=== PATIENT | male | born 1935 | race Caucasian/White ===

== ENCOUNTER → 2016-11-22 | Outpatient (CLI) | payer MEDICARE | END | disposition home or self-care (01) | LOC: LABWHC1 10:07 | PROVIDERS: ATTEND Thoracic Surgery (Cardiothoracic Vascular Surgery) | DX: Z53.9 Procedure and treatment not carried out, unspecified reason (principal) ==

== ENCOUNTER 2017-01-04 06:21 | Day surgery (SDC) | payer MEDICARE ==
[2017-01-03 09:20] VITALS: BMI 31.4
[~2017-01-04 06:21] MED LIST: SODIUM CHLORIDE 0.9% 1,000 ML in EMPTY BAG 1 BAG IV ONE
[2017-01-04] MEDS ORDERED: SODIUM CHLORIDE 0.9% 1,000 ML IV ONE (07:00)
[2017-01-04 07:11] LABS: Glucose,Whole Blood 94 mg/dL (75-99)
[2017-01-04 07:21] VITALS: RESP 16; TEMP 97
[2017-01-04] MEDS ORDERED: MIDAZOLAM 2 MG/2 ML VIAL IV ONE (07:42)
[2017-01-04] MEDS ORDERED: LIDOCAINE 2% INJ 20 MG/ML SQ ONE (07:48)
[2017-01-04 08:01] LABS: Basophils % (A) 0 %; CH 30.5; CHCM 33.4; Eosinophils # (A) 0.2 k/uL (0-0.7); Eosinophils % (A) 2 %; HCT 42.7 % (39.0-53.0); HDW 2.62; HGB 14.4 gm/dL (13.0-17.5); Luc # (Auto) 0.19; Luc % (Auto) 2; Lymphocytes # (A) 1.5 k/uL (1.0-4.8); Lymphocytes % (A) 19 %; MCHC 33.8 g/dL (31.0-37.0); MCV 91.7 fL (80.0-100.0); Mean Platelet Volume 7.1; Monocytes # (A) 0.6 k/uL (0-1.0); Monocytes % (A) 7 %; Neutrophils # (A) 5.5 k/uL (1.3-7.7); Neutrophils % (A) 70 %; RBC 4.66 m/uL (4.30-5.90); RDW 13.1 % (11.5-15.5); WBC (Perox) 8.14
[2017-01-04 08:04] LABS: Calcium 9.2 mg/dL (8.4-10.2)
[2017-01-04] MEDS ORDERED: IODIXANOL 320 MG/ML 100 ML INTRAARTER ONE (08:07)
[2017-01-04] MEDS ORDERED: MAG HYDROX/AL HYDROX/SIMETH 30 ML CUP PO PRN (08:10)
[2017-01-04] MEDS ORDERED: ZOLPIDEM 5 MG TAB PO PRN (08:10)
[2017-01-04] MEDS ORDERED: NITROGLYCERIN SL TABS 0.4 MG TAB SUBLINGUAL PRN (08:10)
[2017-01-04] MEDS ORDERED: ATROPINE SULFATE 0.1 MG/ML 10ML SYRINGE IV PRN (08:10)
[2017-01-04] MEDS ORDERED: RX INFO: IV CONTRAST WAS GIVEN 1 EACH MISC MISCELLANE PRN (08:10)
[2017-01-04 08:13] LABS: Potassium 4.7 mmol/L (3.5-5.1)
[2017-01-04] MEDS ORDERED: SODIUM CHLORIDE 0.9% 1,000 ML IV SCH (08:15)
--- NOTE | 2017-01-04 08:49 | IR ---
EXAMINATION TYPE: IR angio abdominal w runoff DATE OF EXAM: 01/04/2017 COMPARISON: NONE HISTORY: Peripheral vascular occlusive disease. Fluoroscopy was provided to the referring clinician. See dictated report from cardiology.
[2017-01-04 09:12] LABS: Glucose,Whole Blood 111 mg/dL (75-99)
--- NOTE | 2017-01-04 14:03 | AN ---
DATE OF SERVICE: January 04, 2017 ABDOMINAL AORTOGRAM AND BILATERAL LOWER EXTREMITY RUNOFF: PERFORMING PHYSICIAN: Bebo Malone MD, Printing Equipment Mechanic Apprentice. PROCEDURE PERFORMED: 1. Abdominal aortogram. 2. Bilateral lower extremity runoff. 3. Selective right popliteal angiogram. INDICATION: This is a pleasant 81-year-old gentleman who sees Dr. Traylor as an outpatient who was diagnosed with a critical limb ischemia and non-healing ulcer involving the right foot. Dr. Traylor requested me to perform a peripheral angiogram. APPROACH: Common femoral artery. COMPLICATIONS: None. LEVEL OF SEDATION: Moderate with a sedation length of 22 minutes. PROCEDURE DESCRIPTION: After obtaining an informed consent, the patient was brought to the Cardiac Bioinformatics Computer Scientist. The right peripheral artery was cannulated using micropuncture technique under ultrasound guidance. The micropuncture wire passed easily, then I placed a 5 Georgian sheath in the right common femoral artery. Subsequently, I did an abdominal aortogram and bilateral lower extremity runoff. Using 5 Georgian Pigtail catheter, which was initially placed at the level of the peroneal arteries, then it was pulled into above the bifurcation of the aorta to the right and left common iliac arteries. Then I did selective right popliteal angiogram with injection through the right common femoral sheath. Procedure was completed without any complication. SELECTIVE PERIPHERAL ANGIOGRAM: The aorta is angiographically normal. COMMON ILIAC ARTERIES: The right and left common iliac arteries are angiographically normal. INTERNAL ILIAC ARTERIES: The right and left internal iliac arteries are patent. EXTERNAL ILIAC ARTERY: The right and left external iliac arteries appear to have mild disease only. COMMON FEMORAL ARTERY: The right and left common femoral arteries are angiographically normal. PROFUNDA: The right and left profunda are angiographically normal. SFA: The right and left SFA appears to have mild to moderate diffuse disease but there is no high-grade stenoses. POPLITEAL: The right popliteal is subtotally occluded and the left popliteal appeared to have a tight lesion in the range of 80%. BELOW THE KNEE: Poor opacification for below the knee where I could not visualize the arteries very well but it seems to have diffuse 3-vessel disease. CONCLUSION: 1. Mild aortoiliac disease. 2. Subtotally occluded right popliteal artery. 3. Severe disease involving the left popliteal. 4. Severe below-the knee disease bilaterally. PLAN: The patient will benefit from CHAINSTITCH SEAT JOINER of the right popliteal and at the same time will take an angiogram to assess the arteries below the knee on the right side. LOPEZ
[2017-01-04 14:06] VITALS: BP 154/56; PULSE 45
== END 2017-01-04 14:40 | disposition home or self-care (01) ==
LOC: CATHCVL 06:21
PROVIDERS: ATTEND Internal Medicine Interventional Cardiology
DX: I77.9 Disorder of arteries and arterioles, unspecified (principal); I99.8 Other disorder of circulatory system; E11.621 Type 2 diabetes mellitus with foot ulcer; L97.512 Non-pressure chronic ulcer of other part of right foot with fat layer exposed; I25.10 Atherosclerotic heart disease of native coronary artery without angina pectoris; E78.5 Hyperlipidemia, unspecified; I10 Essential (primary) hypertension; Z79.899 Other long term (current) drug therapy
CPT/HCPCS: 36200; 75625; 75716; 76937; 80048; 85025; 99152; 99153; C1894 ×2; C1769 ×3; J2001; J2250; Q9967

== ENCOUNTER 2017-01-18 06:31 | Day surgery (SDC) | payer MEDICARE ==
[2017-01-15 11:30] VITALS: BMI 31.1
[2017-01-18 07:15] LABS: Glucose,Whole Blood 134 mg/dL (75-99)
[2017-01-18] MEDS ORDERED: LIDOCAINE 2% INJ 20 MG/ML SQ ONE (08:08)
[2017-01-18] MEDS ORDERED: MIDAZOLAM 2 MG/2 ML VIAL IV ONE (08:08)
[2017-01-18] MEDS ORDERED: HEPARIN SODIUM 1,000 UN/ML (10ML VL) IV ONE (08:13)
[2017-01-18] MEDS: MIDAZOLAM 2 MG/2 ML VIAL IV ONE ×2 (08:34→09:38)
[2017-01-18] MEDS ORDERED: CLOPIDOGREL 75 MG TAB PO ONE (08:44)
[2017-01-18] MEDS ORDERED: hydrALAZINE HCL 20 MG/ML 1 ML VIAL IV ONE (08:47)
[2017-01-18] MEDS: NITROGLYCERIN 1000MCG/10ML SYRINGE INTRAARTER ONE ×3 (09:16→10:15)
[2017-01-18] MEDS: niCARdipine Syringe (1,000 mcg/10 mL) INTRAARTER ONE ×3 (09:16→10:17)
[2017-01-18] MEDS ORDERED: ONDANSETRON 4 MG/2 ML VIAL IVP ONE (09:57)
[2017-01-18] MEDS ORDERED: IODIXANOL 320 MG/ML 100 ML INTRAARTER ONE (10:17)
[2017-01-18] MEDS ORDERED: FUROSEMIDE 40 MG TAB PO PRN (10:36)
[2017-01-18] MEDS ORDERED: SODIUM CHLORIDE 0.9% 1,000 ML IV SCH (10:45)
--- NOTE | 2017-01-18 11:06 | IR ---
Fluoroscopy HISTORY: Pain 33.1 minutes fluoroscopy time supplied to the referring clinician. 844 intraoperative C-arm images d ocument the procedure. See dictated report from cardiology.
[2017-01-18 11:57] LABS: Basophils % (A) 0 %; CH 30.7; CHCM 32.3; Eosinophils # (A) 0.1 k/uL (0-0.7); Eosinophils % (A) 1 %; HCT 40.9 % (39.0-53.0); HDW 2.62; HGB 13.1 gm/dL (13.0-17.5); Luc # (Auto) 0.08; Luc % (Auto) 1; Lymphocytes # (A) 0.8 k/uL (1.0-4.8); Lymphocytes % (A) 7 %; MCH 30.5 pg (25.0-35.0); MCHC 32.1 g/dL (31.0-37.0); MCV 95.2 fL (80.0-100.0); Mean Platelet Volume 7.5; Monocytes # (A) 0.7 k/uL (0-1.0); Monocytes % (A) 6 %; Neutrophils # (A) 9.9 k/uL (1.3-7.7); Neutrophils % (A) 86 %; RBC 4.29 m/uL (4.30-5.90); RDW 13.8 % (11.5-15.5); WBC 11.5 k/uL (3.8-10.6)
[2017-01-18 12:57] LABS: Calcium 8.8 mg/dL (8.4-10.2); Potassium 4.1 mmol/L (3.5-5.1)
--- NOTE | 2017-01-18 15:25 | MISC ---
DATE OF SERVICE: 01/18/2017 Dear Rylan; Mr. Jeb Calderón underwent successful balloon angioplasty of the right popliteal artery with a good angiographic result and without any complication. I want to thank you for allowing us to participate in his care and please do not hesitate to call for any question or concern. Sincerely, Monalisa Crews. LOPEZ
--- NOTE | 2017-01-18 15:39 | PCN ---
DATE OF PROCEDURE: 01/18/2017 PERFORMING PHYSICIAN: Bebo Malone M.D., manager practice. PROCEDURE PERFORMED: 1. Selective right below the knee angiogram. 2. Selective right popliteal angiogram. 3. Atherectomy of the right popliteal artery using the Turbo Hawk device with obstruction of significant amount of plaque. 4. Successful balloon angioplasty of the proximal right popliteal. 5. Successful stenting of the mid right popliteal using ( ) VTX stent with good angiographic results. 6. Selective left common femoral artery angiogram. INDICATIONS: This is a pleasant 82 -year-old gentleman who sees Dr. Traylor and Dr. Ferrera as an outpatient who was diagnosed by Dr. Traylor with critical limb ischemia, CLI of the right foot. He underwent peripheral angiogram a few weeks ago and that showed occlusive right popliteal. He was brought today to undergo a UNION CARPENTER of the right popliteal. APPROACH: Left common femoral artery. COMPLICATIONS: None. LEVEL OF SEDATION: Moderate with a sedation length of 2 hours and 17 minutes. PROCEDURE DESCRIPTION: After obtaining informed consent, the patient was brought to the cardiac greens laborer. The left common femoral artery was cannulated using micropuncture technique. The micropuncture wire passed easily and then I placed a 6 Lao sheath 11 cm in the left common femoral artery. After that I did select the right SFA using an 035 Advantage wire with 5 Lao Rim catheter. The 035 Advantage wire was advanced all the way to the distal right SFA. At that point, anticoagulation was initiated using heparin and the patient was given a total of 9000 units of heparin IV. Subsequently, I did exchange my 11 cm sheath into the left groin into a 70 cm 6 Lao sheath using the Advantage wire. The sheath was positioned in the proximal right common femoral artery. Subsequently, after that, I did Selective right below the knee angiogram and selective right popliteal angiogram to realize that the popliteal artery was 100 % occluded. After that, I did balloon angioplasty using 5.0 angio sculpt balloon which was inflated under 8 atmospheres for about 30 seconds. Then I did drug coated balloon of that segment using 6.0 x 60 mm balloon which was inflated under 6 atmospheres for 3 minutes. The following angiogram showed what seems to be dissection involving the second segment of the popliteal and I decided to stent that segment so I did use PTX 7 x 60 mm stent which was positioned under fluoroscopy guidance and deployed under fluoroscopy guidance as well. I dilated the stent using 6 mm balloon. The following angiogram showed good angiographic results. Proximal to the stent segment, there was another lesion seems to be tight, so I did cut that lesion using the Angio sculpt balloon which was 5.0 balloon and then I used 5.0 x 60 mm drug coated balloon which was positioned under fluoroscopy guidance and inflated for 3 minutes as well. The following angiogram showed decent angiographic results. The procedure was completed without any complications. After that, I did exchange my 70 cm 6 Lao sheath into 11 cm 6 Lao sheath using the 0.35 Advantage wire. After that I did selective right common femoral artery angiogram before I finished the procedure. The procedure was completed without complication. POSTPROCEDURE MANAGEMENT: 1. Dual antiplatelet therapy. 2. Risk factor modifications. 3. Follow-up with the patient. LOPEZ
[2017-01-18] MEDS ORDERED: ATROPINE SULFATE 0.1 MG/ML 10ML SYRINGE ONE (16:46)
[2017-01-18] MEDS ORDERED: ENALAPRILAT 1.25 MG/ML 1 ML VIAL IVP STA (17:16)
[2017-01-18] MEDS: hydrALAZINE HCL 20 MG/ML 1 ML VIAL IVP PRN ×2 (17:23→21:00)
[2017-01-18] MEDS ORDERED: Acetaminophen-Codeine 300-30mg TAB PO PRN (21:21)
[2017-01-19] MEDS ORDERED: HYDROmorphone 1 MG/ML 1 ML SYRINGE IVP STA (00:39)
[2017-01-19 07:23] LABS: Glucose,Whole Blood 282 mg/dL (75-99)
[2017-01-19] MEDS ORDERED: INSULIN LISPRO (humaLOG) 300 UNIT/3 ML VIAL SQ ONE (07:39)
[2017-01-19] MEDS ORDERED: INSULIN LISPRO (humaLOG) 300 UNIT/3 ML VIAL SQ PRN (08:06)
[2017-01-19 08:23] VITALS: BP 148/61; PULSE 60; RESP 20; TEMP 97.2
[2017-01-19] MEDS ORDERED: ATORVASTATIN 40 MG TAB PO SCH (09:00)
[2017-01-19] MEDS ORDERED: METOCLOPRAMIDE 10 MG TAB PO SCH (09:00)
[2017-01-19] MEDS ORDERED: ASPIRIN 325 MG TAB PO SCH (09:00)
[2017-01-19] MEDS ORDERED: LOSARTAN 50 MG TAB PO SCH (09:00)
[2017-01-19] MEDS ORDERED: CLOPIDOGREL 75 MG TAB PO SCH (09:00)
[2017-01-19] MEDS ORDERED: HYDROCHLOROTHIAZIDE 25 MG TAB PO SCH (09:00)
--- NOTE | 2017-01-23 11:51 | DS ---
ADMISSION DATE: 01/18/2017 DISCHARGE DATE: 01/19/2017 BRIEF HISTORY: This is a pleasant 82-year-old gentleman who sees Dr. Traylor as an outpatient who was diagnosed with critical limb ischemia of the right foot. He underwent a peripheral angiogram which showed occluded right popliteal and he was brought yesterday and underwent successful balloon angioplasty of the right popliteal with a good angiographic results and without any complication where the procedure was performed from the left groin. The left groin is soft and nontender and without any bruises. The patient is going to be discharged home on dual antiplatelet therapy and I will follow up with the patient in the office next week. LOPEZ
== END 2017-01-19 10:35 | disposition home or self-care (01) ==
LOC: CATHCVL 06:31 → 6SEL 10:22 → CATHCVL 01-19 10:35
PROVIDERS: ATTEND Internal Medicine Interventional Cardiology
DX: I70.211 Atherosclerosis of native arteries of extremities with intermittent claudication, right leg (principal); I70.92 Chronic total occlusion of artery of the extremities
CPT/HCPCS: 99152; 99153 ×8; 37227; 80048; 82565; 85025; C1894 ×2; C1725 ×2; C1769 ×6; C1887; C1714; C1884; C2623; C1874; J2001; J2250; J0360; Q9967; J2405; J1644; J1170

== ENCOUNTER 2017-03-10 02:18 | Emergency (ER) | payer MEDICARE ==
[2017-03-10] MEDS ORDERED: HYDROmorphone 1 MG/ML 1 ML SYRINGE IVP STA (03:11)
[2017-03-10] MEDS ORDERED: SODIUM CHLORIDE 0.9% 500 ML IV STA (03:11)
[2017-03-10] MEDS ORDERED: ONDANSETRON 4 MG/2 ML VIAL IVP STA (03:11)
--- NOTE | 2017-03-10 03:14 | ED ---
Abdominal Pain HPI - General Chief Complaint: Abdominal Pain Stated Complaint: Constipation Time Seen by Provider: 03/10/17 02:42 Source: patient Mode of arrival: wheelchair Limitations: no limitations - History of Present Illness Initial Comments: 82-year-old male patient presents to emergency department today for complaints of generalized abdominal pain. Patient states that he has not had a good bowel movement for the last 2 or 3 days. He is concerned that he may be constipated. He states that he also is having urinary retention with this. Patient denies any history of issues with constipation. Patient did have a toe amputated and has been taking [place] for the last week. Son reports that he is not ambulating or taking in fluids as usual. States that he does have a decreased appetite. Patient states that the pain feels like an intense pressure, he states that he "feels like his abdomen is going to explode". Patient states he is passing gas. He denies any diarrhea. States that when he wiped he did notice a small amount of blood streaking on the toilet paper. He states that he does not know of any hemorrhoids. He states he did have a GI bleed once in the distant past. He does take Plavix currently. He states he is nauseated but has not vomited. Patient denies any recent rash, fever, chills, shortness breath, chest pain, back pain, numbness, tingling, dizziness, weakness, hematuria, dysuria, headache, visual changes, or any other complaints. - Related Data Home Medications Medication Instructions Recorded Confirmed Atorvastatin [Lipitor] 40 mg PO DAILY 04/21/16 03/10/17 Furosemide [Lasix] 40 mg PO DAILY PRN 04/21/16 03/10/17 Hydrochlorothiazide [Hydrodiuril] 25 mg PO DAILY 04/21/16 03/10/17 Losartan [Cozaar] 50 mg PO DAILY 04/21/16 02/14/17 INSULIN LISPRO (humaLOG) [humaLOG 1 dose SQ AC-TID PRN 01/03/17 03/10/17 (formulary)] Metoclopramide [Reglan] 10 mg PO DAILY 01/03/17 02/14/17 Amoxic-Pot Clav 875-125Mg 1 tab PO Q12HR 03/10/17 03/10/17 [Augmentin 875-125] Hydrocodone/Acetaminophen [[place] 1 tab PO Q4HR PRN 03/10/17 03/10/17 5-325] Losartan [Cozaar] 50 mg PO DAILY 03/10/17 03/10/17 Previous Rx's Medication Instructions Recorded Aspirin 325 mg PO DAILY #90 tab 01/19/17 Clopidogrel [Plavix] 75 mg PO DAILY #90 tab 01/19/17 Allergies Allergy/AdvReac Type Severity Reaction Status Date / Time No Known Allergies Allergy Verified 03/07/17 09:52 Review of Systems ROS Statement: Those systems with pertinent positive or pertinent negative responses have been documented in the HPI. ROS Other: All systems not noted in ROS Statement are negative. Past Medical History Past Medical History: Coronary Artery Disease (CAD), Diabetes Mellitus, Hyperlipidemia, Hypertension, Osteoarthritis (OA), Sleep Apnea/CPAP/BIPAP, Vascular Disorder Additional Past Medical History / Comment(s): `04-21-16 FALL/LT HIP PAIN VARICSOE TO LEGS, NUMBNESS TO HANDS/FEET,ENLARGED PROSTATE, HAD A PNE VACCINE NOT SURE OF DATE BUT THINKS IT WAS LESS THAN 5 YEARS. Sores to R foot. OF DATE BUT THINKS IT WAS LESS THAN 5 YEARS. History of Any Multi-Drug Resistant Organisms: None Reported Past Surgical History: Orthopedic Surgery Additional Past Surgical History / Comment(s): Rt hip replacement, malinda cataract surgery, Screw in L hip. Ab. Aortoram and Bilat. Lower Ext. runoff 01-04-17. 2 nd Toe amputation on right foot. Past Anesthesia/Blood Transfusion Reactions: No Reported Reaction Past Psychological History: No Psychological Hx Reported Smoking Status: Never smoker - Past Family History Father History Unknown: Yes Family Medical History: Thyroid Disorder Additional Family Medical History / Comment(s): AFTER A GOITER surgery. Mother History Unknown: Yes Additional Family Medical History / Comment(s): IN A MVA General Exam Limitations: no limitations General appearance: alert, in no apparent distress Eye exam: Present: normal appearance, PERRL, EOMI. Absent: scleral icterus, conjunctival injection, periorbital swelling ENT exam: Present: normal exam, normal oropharynx, mucous membranes moist Neck exam: Present: normal inspection. Absent: tenderness, meningismus, lymphadenopathy Respiratory exam: Present: normal lung sounds bilaterally. Absent: respiratory distress, wheezes, rales, rhonchi, stridor Cardiovascular Exam: Present: regular rate, normal rhythm, normal heart sounds. Absent: systolic murmur, diastolic murmur, rubs, gallop, clicks GI/Abdominal exam: Present: soft, distended, normal bowel sounds. Absent: tenderness, guarding, rebound, rigid Extremities exam: Present: normal inspection, full ROM, normal capillary refill. Absent: tenderness, pedal edema, joint swelling, calf tenderness Back exam: Present: normal inspection Neurological exam: Present: alert, oriented X3, CN II-XII intact Psychiatric exam: Present: normal affect, normal mood Skin exam: Present: warm, dry, intact, normal color. Absent: rash Course Vital Signs 03/10/17 03/10/17 02:28 03:15 Temperature 98.0 F Pulse Rate 72 64 Respiratory 18 18 Rate Blood Pressure 149/64 186/85 O2 Sat by Pulse 96 98 Oximetry - Reevaluation(s) Reevaluation #1: 03/10/17 04:17 Went into reevaluate patient. He states that pain medication has helped somewhat with his pain. Did explain findings of x-ray. Did inform he had a large amount of stool in his rectum. Did let him know that manual disimpaction was an option as well as an enema. He agreed to have this performed. Did perform digital disimpaction, did get out a moderate amount of very hard stool. Did notice evidence of some rectal bleeding. Did inform patient that nursing staff will be in to administer enema shortly. Patient tolerated procedure well. Reevaluation #2: 03/10/17 06:22 Patient did receive a milk of molasses enema, states he did not have any results from this. States he does feel somewhat better after the disimpaction however he still is uncomfortable. Patient is requesting an additional enema. We will attempt a soapsuds enema this time, perhaps the larger volume will be better for the patient. Also did go over the case with my attending Dr. Levine patient's renal function has worsened since his last visit. Dr. Lee did speak to Dr. Ferrera the patient's family physician who states that patient can be managed outpatient at this time. We did give him a 500 mL bolus of normal saline. I did relay this information to the patient and instructed him to call Dr. Ferrera for an appointment on Sunday for repeat labs. I did inform the patient of this and he agrees with this plan. I also did inform this patient's son of this as well. Patient care will be handed off to Dr. Lee to evaluate until discharge. 03/10/17 06:26 Medical Decision Making - Lab Data Result diagrams: 03/10/17 03:45 03/10/17 03:45 Lab Results 03/10/17 03/10/17 03/10/17 Range/Units 03:45 03:45 05:30 WBC 12.3 H (3.8-10.6) k/uL RBC 3.86 L (4.30-5.90) m/uL Hgb 11.9 L (13.0-17.5) gm/dL Hct 36.6 L (39.0-53.0) % MCV 94.9 (80.0-100.0) fL MCH 30.7 (25.0-35.0) pg MCHC 32.4 (31.0-37.0) g/dL RDW 14.1 (11.5-15.5) % Plt Count 226 (150-450) k/uL Neutrophils % 93 % Lymphocytes % 3 % Monocytes % 4 % Eosinophils % 0 % Basophils % 0 % Neutrophils # 11.4 H (1.3-7.7) k/uL Lymphocytes # 0.4 L (1.0-4.8) k/uL Monocytes # 0.5 (0-1.0) k/uL Eosinophils # 0.0 (0-0.7) k/uL Basophils # 0.0 (0-0.2) k/uL Sodium 138 (137-145) mmol/L Potassium 4.9 (3.5-5.1) mmol/L Chloride 102 (98-107) mmol/L Carbon Dioxide 20 L (22-30) mmol/L Anion Gap 16 mmol/L BUN 49 H (9-20) mg/dL Creatinine 3.50 H (0.66-1.25) mg/dL Est GFR (MDRD) Af Amer 20 (>60 ml/min/1.73 sqM) Est GFR (MDRD) Non-Af 17 (>60 ml/min/1.73 sqM) Glucose 227 H (74-99) mg/dL Calcium 9.6 (8.4-10.2) mg/dL Total Bilirubin 0.6 (0.2-1.3) mg/dL AST 26 (17-59) U/L ALT 36 (21-72) U/L Alkaline Phosphatase 196 H (38-126) U/L Total Protein 6.7 (6.3-8.2) g/dL Albumin 3.9 (3.5-5.0) g/dL Amylase 33 (30-110) U/L Lipase 32 (23-300) U/L Stool Occult Blood Positive (Negative) Disposition Clinical Impression: Acute kidney injury superimposed on chronic kidney disease, Constipation, Fecal impaction Disposition: HOME SELF-CARE Condition: Good Instructions: Chronic Kidney Disease (ED), Constipation (ED) Additional Instructions: Increase fluids. Take [id number] stool softeners. Call Dr. Ferrera's office for an appointment Sunday. Have repeat labs performed to evaluate kidney function. Return here immediately for any new, worsening, or concerning symptoms. Referrals: Rylan Ferrera MD [Primary Care Provider] - 1-2 days
--- NOTE | 2017-03-10 03:33 | XR ---
EXAM: XR Abdomen, 1 View CLINICAL HISTORY: Patient complains of constipation with blood in stool. TECHNIQUE: Frontal supine view of the abdomen/pelvis. COMPARISON: No relevant prior studies available. FINDINGS: Gastrointestinal tract: Nonspecific bowel gas pattern without evidence of obstruction. Large stool ball in the rectum is suggested. Bones/joints: Postoperative changes are seen involving both hips. Probable chronic fracture involving the left lesser trochanter. Degenerative changes seen throughout the osseous structures. IMPRESSION: Nonspecific bowel gas pattern without evidence of obstruction. Large stool ball in the rectum suggested. Clinical correlation for disimpaction.
[2017-03-10 04:10] LABS: Basophils % (A) 0 %; CH 31.4; CHCM 33.3; Eosinophils % (A) 0 %; HCT 36.6 % (39.0-53.0); HDW 2.55; HGB 11.9 gm/dL (13.0-17.5); Luc # (Auto) 0.05; Luc % (Auto) 0; Lymphocytes # (A) 0.4 k/uL (1.0-4.8); Lymphocytes % (A) 3 %; MCH 30.7 pg (25.0-35.0); MCHC 32.4 g/dL (31.0-37.0); MCV 94.9 fL (80.0-100.0); Mean Platelet Volume 7.7; Monocytes # (A) 0.5 k/uL (0-1.0); Monocytes % (A) 4 %; Neutrophils # (A) 11.4 k/uL (1.3-7.7); Neutrophils % (A) 93 %; RBC 3.86 m/uL (4.30-5.90); RDW 14.1 % (11.5-15.5); WBC 12.3 k/uL (3.8-10.6); WBC (Perox) 11.73
[2017-03-10 04:26] LABS: Calcium 9.6 mg/dL (8.4-10.2); Potassium 4.9 mmol/L (3.5-5.1); Total Bilirubin 0.6 mg/dL (0.2-1.3); Total Protein 6.7 g/dL (6.3-8.2)
[2017-03-10 07:59] VITALS: BP 126/67; PULSE 60; RESP 16; TEMP 98
== END 2017-03-10 07:59 | disposition home or self-care (01) ==
LOC: EC 02:18
DX: N17.9 Acute kidney failure, unspecified (principal); I12.9 Hypertensive chronic kidney disease with stage 1 through stage 4 chronic kidney disease, or unspecified chronic kidney disease; N18.9 Chronic kidney disease, unspecified; K59.00 Constipation, unspecified; I25.10 Atherosclerotic heart disease of native coronary artery without angina pectoris; E78.5 Hyperlipidemia, unspecified; Z79.899 Other long term (current) drug therapy
CPT/HCPCS: 99284; 96374; 96375; 96361; 51798; 36415; 80053; 82150; 83690; 85025; 82272; 74000; J2405; J1170

== ENCOUNTER 2017-09-28 19:40 | Emergency (ER) | payer MEDICARE ==
[2017-09-28] MEDS ORDERED: cloNIDine HCL 0.2 MG TAB PO STA (20:45)
--- NOTE | 2017-09-28 20:46 | ED ---
General Adult HPI - General Chief complaint: Skin/Abscess/Foreign Body Stated complaint: Wound infection Time Seen by Provider: 09/28/17 20:24 Source: patient, family, RN notes reviewed, old records reviewed Mode of arrival: ambulatory Limitations: no limitations - History of Present Illness Initial comments: Chief complaint history of present illness this 89-year-old male here with his son. The son noticed that he had some blood in his sock. Patient had a right second toe amputation February last year. History of diabetes. He went through wound clinic. That healed. Examination of this time finds a soft callus that is from the top no active bleeding at this time though the skin is very thin. No signs of infection. No foul odor. Patient does have peripheral neuropathy. He does not sense pain. Does not remember stubbing his toe. - Related Data Home Medications Medication Instructions Recorded Confirmed Atorvastatin [Lipitor] 20 mg PO DAILY 04/21/16 09/28/17 Furosemide [Lasix] 20 mg PO DAILY 04/21/16 09/28/17 Hydrochlorothiazide [Hydrodiuril] 25 mg PO DAILY 04/21/16 09/28/17 Metoclopramide [Reglan] 10 mg PO DAILY 01/03/17 09/28/17 Insulin NPH Hum/Reg Insulin Hm See Protocol SQ AC-TID 09/28/17 09/28/17 [NovoLIN 70-30 100 UNIT/ML VIAL] Previous Rx's Medication Instructions Recorded Aspirin 325 mg PO DAILY #90 tab 01/19/17 Clopidogrel [Plavix] 75 mg PO DAILY #90 tab 01/19/17 Lisinopril [Prinivil] 5 mg PO DAILY #30 tablet 09/28/17 Allergies Allergy/AdvReac Type Severity Reaction Status Date / Time No Known Allergies Allergy Verified 09/28/17 20:18 Review of Systems ROS Statement: Those systems with pertinent positive or pertinent negative responses have been documented in the HPI. Review of systems no other complaints at this time and all systems were otherwise reviewed. The patient does present with small amount of bleeding on his previously amputated right second toe. Past medical problems significant for coronary artery disease, diabetes mellitus , hyperlipidemia and hypertension. Osteoarthritis. Sleep apnea peripheral vascular disease. Patient denies any ALLERGIES. Surgeries include right hip replacement amputation of his right second toe. Nonsmoker nondrinker. Family history noncontributory ROS Other: All systems not noted in ROS Statement are negative. Past Medical History Past Medical History: Coronary Artery Disease (CAD), Diabetes Mellitus, Hyperlipidemia, Hypertension, Osteoarthritis (OA), Sleep Apnea/CPAP/BIPAP, Vascular Disorder Additional Past Medical History / Comment(s): `04-21-16 FALL/LT HIP PAIN VARICSOE TO LEGS, NUMBNESS TO HANDS/FEET,ENLARGED PROSTATE, HAD A PNE VACCINE NOT SURE OF DATE BUT THINKS IT WAS LESS THAN 5 YEARS. Sores to R foot. OF DATE BUT THINKS IT WAS LESS THAN 5 YEARS. History of Any Multi-Drug Resistant Organisms: None Reported Past Surgical History: Orthopedic Surgery Additional Past Surgical History / Comment(s): Rt hip replacement, malinda cataract surgery, Screw in L hip. Ab. Aortoram and Bilat. Lower Ext. runoff 01-04-17. 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 Past Anesthesia/Blood Transfusion Reactions: No Reported Reaction Past Psychological History: No Psychological Hx Reported Smoking Status: Never smoker - Past Family History Father History Unknown: Yes Family Medical History: Thyroid Disorder Additional Family Medical History / Comment(s): AFTER A GOITER surgery. Mother History Unknown: Yes Additional Family Medical History / Comment(s): IN A MVA General Exam - General Exam Comments Initial Comments: General: The patient is awake and alert, in no distress, and does not appear acutely ill. He because he noticed some blood on his sock. He came from the stump of his amputated right second toe. Amputated February last year. Vital signs shows temperature 98.4 pulse 65 respiratory rate 16 pulse ox 99% room air initial blood pressure 211/86. This was repeated. At 198/78. The patient was given Catapres 0.2. Eye: Pupils are equal, Ears, nose, mouth and throat: There are moist mucous membranes Neck: The neck is supple, Cardiovascular: Denies chest pain or palpitations. Respiratory: No complaint of shortness of breath. No wrist or distress. No wheezing. Gastrointestinal: Abdomen benign no complaints of nausea vomiting diarrhea. Back: No complaints of back pain Musculoskeletal: Patient has a small amount of bleeding from the healed amputation of the right second toe. He had a soft callus not area which came off easily just with cleaning the area. The patient's wound was redressed topical bacitracin and gently wrapped. Patient was told to keep the foot elevated. Change dressing twice daily. Follow-up with family physician. Neurological: No new neuro deficits. Does have a history of peripheral neuropathy, chronic changes secondary to diabetes. Skin: Skin dry, scaly Limitations: no limitations Course Vital Signs 09/28/17 09/28/17 19:49 20:45 Temperature 98.4 F Pulse Rate 65 56 L Respiratory 16 18 Rate Blood Pressure 211/86 198/78 O2 Sat by Pulse 99 99 Oximetry Medical Decision Making - Medical Decision Making Medical decision making; this is a 82-year-old male here with his son. Patient reports that it was noted that he had some bleeding from the stump of his amputated right second toe. This was addressed and redressed. The patient presented with high blood pressure. Repeat pressure was 198/78. The patient was given Catapres 0.2 by mouth. Review of his current medications he is only on hydrochlorothiazide otherwise no other blood pressure lowering pills. The patient will be started on lisinopril 5 mg 1 daily and follow-up with family physician. Disposition Clinical Impression: Encounter for wound re-check, Hypertension Disposition: HOME SELF-CARE Condition: Fair Instructions: Hypertension (ED) Additional Instructions: Change dressing daily. Watch for signs of infection. Use paper tape provided on the skin if needed. Follow-up with family physician.*Lisinopril 5 mg daily. Prescriptions: Lisinopril [Prinivil] 5 mg PO DAILY #30 tablet Referrals: Rylan Ferrera MD [Primary Care Provider] - 1-2 days Time of Disposition: 20:51
[2017-09-28 21:46] VITALS: PULSE 50
[2017-09-28 22:05] VITALS: BP 144/70; RESP 16; TEMP 97.6
== END 2017-09-28 22:00 | disposition home or self-care (01) ==
LOC: EC 19:40
DX: T87.89 Other complications of amputation stump (principal); I10 Essential (primary) hypertension; E11.42 Type 2 diabetes mellitus with diabetic polyneuropathy; E78.5 Hyperlipidemia, unspecified; I25.10 Atherosclerotic heart disease of native coronary artery without angina pectoris; G47.30 Sleep apnea, unspecified; Z79.4 Long term (current) use of insulin; Z79.899 Other long term (current) drug therapy; Z99.89 Dependence on other enabling machines and devices
CPT/HCPCS: 99283

== ENCOUNTER 2017-11-22 10:20 | Inpatient (IN) | payer MEDICARE ==
[2017-11-15 13:46] VITALS: BMI 28.1
[2017-11-22 10:58] LABS: Glucose,Whole Blood 155 mg/dL (75-99)
[2017-11-22 11:30] LABS: Anisocytosis Slight; Basophils % (A) 0 %; Eosinophils # (A) 0.3 k/uL (0-0.7); Eosinophils % (A) 5 %; HGB 14.4 gm/dL (13.0-17.5); Lymphocytes # (A) 1.6 k/uL (1.0-4.8); Lymphocytes % (A) 23 %; MCH 28.6 pg (25.0-35.0); MCHC 32.8 g/dL (31.0-37.0); Monocytes # (A) 0.5 k/uL (0-1.0); Monocytes % (A) 7 %; Neutrophils # (A) 4.4 k/uL (1.3-7.7); Neutrophils % (A) 63 %; Platelet Count 172 k/uL (150-450); RBC 5.05 m/uL (4.30-5.90); RDW 16.1 % (11.5-15.5); WBC 7.1 k/uL (3.8-10.6)
[2017-11-22 11:37] LABS: Calcium 9.5 mg/dL (8.4-10.2); Potassium 3.6 mmol/L (3.5-5.1)
[2017-11-22] MEDS ORDERED: MIDAZOLAM 2 MG/2 ML VIAL IVP ONE (12:54)
[2017-11-22] MEDS ORDERED: fentaNYL (PF) 50 MCG/ML 2 ML AMP IVP ONE (12:54)
[2017-11-22] MEDS ORDERED: LIDOCAINE 1% (PF) 10MG/ML VIAL SQ ONE (12:56)
[2017-11-22] MEDS ORDERED: IOPAMIDOL-250 100ML BTL IV ONE (13:06)
[2017-11-22] MEDS ORDERED: IOPAMIDOL-250 50ML BTL IV ONE (13:10)
[2017-11-22] MEDS: SODIUM CHLORIDE 0.9% 1,000 ML IV SCH (13:20)
[2017-11-22] MEDS ORDERED: ATROPINE SULFATE 0.1 MG/ML 10ML SYRINGE ONE (13:34)
[2017-11-22] MEDS ORDERED: hydrALAZINE HCL 20 MG/ML 1 ML VIAL IVP STA (15:12)
[2017-11-22] MEDS ORDERED: hydrALAZINE HCL 20 MG/ML 1 ML VIAL ONE (15:16)
[2017-11-22 16:31] LABS: Glucose,Whole Blood 178 mg/dL (75-99)
[2017-11-22 21:43] LABS: Glucose,Whole Blood 261 mg/dL (75-99)
[2017-11-23] MEDS: INSULIN NPH/REG INSULIN 70/30 300 UNIT/3 ML VIAL SQ SCH ×4 (01:04→18:29)
[2017-11-23 07:00] LABS: Glucose,Whole Blood 229 mg/dL (75-99)
[2017-11-23] MEDS ORDERED: FUROSEMIDE 40 MG TAB PO SCH (09:00)
[2017-11-23] MEDS ORDERED: ceFAZolin IN SWFI 2 GM/20 ML SYRINGE IVP ONE (11:54)
[2017-11-23] MEDS ORDERED: ceFAZolin 1,000 MG in SODIUM CHLORIDE 0.9% IRRIGATIO 250 ML IRRIGATION ONE (11:54)
[2017-11-23] MEDS ORDERED: SODIUM CHLORIDE 0.9% 1,000 ML IV SCH ×3 (12:00)
[2017-11-23 12:06] LABS: Glucose,Whole Blood 171 mg/dL (75-99)
[2017-11-23] MEDS: METOCLOPRAMIDE 10 MG TAB PO SCH (13:24)
[2017-11-23] MEDS: ASPIRIN 81 MG PO SCH (13:25)
[2017-11-23] MEDS: CLOPIDOGREL 75 MG TAB PO SCH (13:25)
[2017-11-23] MEDS: ATORVASTATIN 40 MG TAB PO SCH (13:25)
[2017-11-23] MEDS: SODIUM CHLORIDE 0.9% 1,000 ML IV SCH ×2 (14:00→18:16)
--- NOTE | 2017-11-23 14:32 | P.PN ---
Subjective Progress Note Date: 11/23/17 Principal diagnosis: Complete heart block This is an 82-year-old gentleman with known history of hypertension, diabetes, hyperlipidemia, was admitted to the hospital by Dr. Clemente to undergo abdominal aortogram and bilateral lower extremity runoff. Patient was initially on the observation unit, became vasovagal and shortly after it was noted that the patient went into complete heart block. For this reason patient was asked again to be evaluated today by cardiology. Patient has been seen in consultation by Dr. VC Stanton. Recommendations were made to transfer the patient to the telemetry unit, with a life pack at bedside. Patient will be scheduled to undergo implantation of a permanent pacemaker by Dr. Tellez on Sunday. At the time of my examination, patient is sitting up in chair alert and oriented 3, asymptomatic. Heart rate low 40s. Blood pressure 140/60 afebrile, 97% on room air. We will check a TSH level today, repeat lytes BUN and creatinine. Objective - Vital Signs Vital signs: Vital Signs Temp 98.2 F 11/23/17 11:50 Pulse 43 L 11/23/17 12:00 Resp 18 11/23/17 11:50 BP 147/62 11/23/17 11:50 Pulse Ox 97 11/23/17 11:50 Intake & Output 11/22/17 11/23/17 11/23/17 18:59 06:59 18:59 Intake Total 150 Output Total 1600 400 Balance -1450 -400 Weight 83.915 kg Intake: IV 150 Output: Urine 1600 400 Uretheral (Lara) 1600 Other: Voiding Method Toilet Toilet - Exam PHYSICAL EXAMINATION: GENERAL: 82-year-old gentleman in no apparent distress at time of our examination. HEENT: Head is atraumatic, normocephalic. Pupils equal, round. Sclera anicteric. Conjunctiva are clear. Mucous membranes of the mouth are moist. Neck is supple. There is no elevated jugular venous pressure.] bruit is heard. HEART EXAMINATION: Heart S1, S2 normal. No murmur or gallop heard. CHEST EXAMINATION: Lungs are clear to auscultation and precussion. No chest wall tenderness is noted on palpation or with deep breathing. ABDOMEN: Soft, nontender. Bowel sounds are heard. No organomegaly noted. Right groin soft no evidence of any hematoma. EXTREMITIES: 2+ peripheral pulses with no evidence of peripheral edema and no calf tenderness noted. NEUROLOGIC patient is awake, alert and oriented -3. . - Labs CBC & Chem 7: 11/22/17 10:50 11/22/17 10:50 Labs: Abnormal Lab Results - Last 24 Hours (Table) 11/22/17 11/22/17 11/23/17 Range/Units 16:29 21:40 06:57 POC Glucose (mg/dL) 178 H 261 H 229 H (75-99) mg/dL 11/23/17 Range/Units 12:04 POC Glucose (mg/dL) 171 H (75-99) mg/dL Assessment and Plan Plan: Assessment and plan #1 status post abdominal aortogram and bilateral lower extremity runoff #2 third-degree heart block #3 hypertension #4 diabetes #5 hyperlipidemia Plan We will obtain a free T4 and TSH level, lytes BUN and creatinine today. A shunt has been transferred to the telemetry unit, he is scheduled to undergo permanent pacemaker implantation on Sunday with Dr. Sales. Lifepak is at bedside. DNP note has been reviewed, I agree with a documented findings and plan of care. Patient was seen and examined.
[2017-11-23] MEDS: HYDROCHLOROTHIAZIDE 25 MG TAB PO SCH (16:54)
[2017-11-23 17:03] LABS: Glucose,Whole Blood 181 mg/dL (75-99)
--- NOTE | 2017-11-23 17:09 | AN ---
ANGIOGRAPHY REPORT ABDOMINAL AORTOGRAM AND BILATERAL LOWER EXTREMITY RUNOFF: DATE OF PROCEDURE: 11/22/2017 PERFORMING PHYSICIAN: Bebo Malone MD, biometrics technician. PROCEDURES PERFORMED: 1. Abdominal aortogram. 2. Bilateral lower extremity runoff. INDICATION: This is a pleasant 82-year-old gentleman who has known history of peripheral arterial disease and prior angioplasty of the right popliteal artery. He was experiencing right foot discomfort and he underwent an arterial duplex study that revealed severe femoropopliteal disease on the right side. Because of that, I recommended proceeding with an abdominal aortogram and bilateral lower extremity runoff. APPROACH: Right common femoral artery. COMPLICATIONS: None. LEVEL OF SEDATION: Moderate with sedation length of 18 minutes. PROCEDURE DESCRIPTION: After obtaining informed consent, the patient was brought to the cardiac labor specialist. The right common femoral artery was cannulated using micropuncture technique. The micropuncture wire passed easily. Then I placed a 5-Mongolian sheath in the right common femoral artery. After that I did an abdominal aortogram and bilateral lower extremity runoff using 5-Mongolian pigtail catheter which was initially placed at the level of the renal arteries. Then it was pulled into above the bifurcation of the aorta to right and left common iliac arteries. The procedure was completed without any complication. I did selective right common femoral artery angiogram to take a better picture for below the knee. SELECTIVE PERIPHERAL ANGIOGRAM: 1. The aorta appeared to have mild disease only. It bifurcates into right and left common iliac arteries. 2. Common iliac arteries. The right and left common iliac arteries are angiographically normal. 3. Internal iliac arteries. The right and left internal iliac arteries are subtotally occluded. 4. External iliac arteries. The right and left external iliac arteries are angiographically normal. 5. Common femoral arteries. The right and left common femoral arteries appear to have mild disease only. 6. Profundae. The right and left profundae are patent. 7. SFA. The right SFA appeared to have mild disease only. The left SFA appeared to have mild to moderate diffuse disease. 8. Popliteals. The right popliteal stent is patent and the left popliteal appeared to have severe disease in the range of 70%. 9. Below the knee. On the right side there is only one vessel runoff below the knee with the peroneal which has a tight lesion in the proximal portion. On the left side, I could not get any good opacifications of the arteries below the knee. CONCLUSION: 1. Mild aortoiliac disease. 2. Patent stent in the right popliteal. 3. Severe left popliteal disease. 4. Severe dyoas-gun-mfdv disease on the right side with only one vessel with a peroneal which has a tight lesion in the proximal portion. MMODL / IJN: [id number] /
[2017-11-23 21:01] LABS: Hemoglobin A1C 6.6 % (4.0-6.0)
[2017-11-23 21:05] LABS: Glucose,Whole Blood 193 mg/dL (75-99)
[2017-11-24 06:01] LABS: Glucose,Whole Blood 115 mg/dL (75-99)
[2017-11-24 06:46] LABS: Anisocytosis Slight; Basophils % (A) 0 %; Eosinophils # (A) 0.2 k/uL (0-0.7); Eosinophils % (A) 3 %; HCT 36.1 % (39.0-53.0); HGB 11.9 gm/dL (13.0-17.5); Lymphocytes # (A) 1.1 k/uL (1.0-4.8); Lymphocytes % (A) 16 %; MCH 28.7 pg (25.0-35.0); MCHC 33.1 g/dL (31.0-37.0); MCV 86.8 fL (80.0-100.0); Mean Platelet Volume 7.4; Monocytes # (A) 0.5 k/uL (0-1.0); Monocytes % (A) 7 %; Neutrophils # (A) 5.2 k/uL (1.3-7.7); Neutrophils % (A) 72 %; Platelet Count 146 k/uL (150-450); RBC 4.16 m/uL (4.30-5.90); RDW 16.4 % (11.5-15.5); WBC 7.1 k/uL (3.8-10.6)
[2017-11-24 06:56] LABS: Calcium 8.5 mg/dL (8.4-10.2)
[2017-11-24] MEDS ORDERED: Potassium Replacement Protocol 1 EACH MISC MISCELLANE PRN (07:04)
[2017-11-24] MEDS: INSULIN NPH/REG INSULIN 70/30 300 UNIT/3 ML VIAL SQ SCH ×3 (07:10→16:54)
[2017-11-24] MEDS: HYDROCHLOROTHIAZIDE 25 MG TAB PO SCH ×2 (08:19→08:20)
[2017-11-24] MEDS: METOCLOPRAMIDE 10 MG TAB PO SCH ×2 (08:19→08:20)
[2017-11-24] MEDS: ATORVASTATIN 40 MG TAB PO SCH (08:21)
[2017-11-24] MEDS: CLOPIDOGREL 75 MG TAB PO SCH (08:21)
[2017-11-24] MEDS: SODIUM CHLORIDE 0.9% 1,000 ML IV SCH ×3 (08:23→20:49)
[2017-11-24] MEDS: POTASSIUM CHLORIDE ER 20 MEQ TAB.ER PO SCH ×2 (08:23→09:02)
[2017-11-24] MEDS: ASPIRIN 81 MG PO SCH (09:01)
--- NOTE | 2017-11-24 11:02 | P.PN ---
Subjective Progress Note Date: 11/24/17 Principal diagnosis: Complete heart block This is an 82-year-old gentleman with known history of hypertension, diabetes, hyperlipidemia, was admitted to the hospital by Dr. Clemente to undergo abdominal aortogram and bilateral lower extremity runoff. Patient was initially on the observation unit, became vasovagal and shortly after it was noted that the patient went into complete heart block. For this reason patient was asked again to be evaluated today by cardiology. Patient has been seen in consultation by Dr. VC Stanton. Recommendations were made to transfer the patient to the telemetry unit, with a life pack at bedside. Patient will be scheduled to undergo implantation of a permanent pacemaker by Dr. Tellez on Sunday. At the time of my examination, patient is sitting up in chair alert and oriented 3, asymptomatic. Heart rate low 40s. Blood pressure 140/60 afebrile, 97% on room air. We will check a TSH level today, repeat lytes BUN and creatinine. 11/24/2017 Patient was seen and examined this morning, feels well, no dizziness or lightheadedness. Continues to be in a complete heart block with a heart rate in the 40s. Blood pressure 134/56. White blood cell count 7.1, hemoglobin 11.9 , platelet count 146. Sodium 141, potassium 3.0, BUN 57, creatinine 1.8. Objective - Vital Signs Vital signs: Vital Signs Temp 97.6 F 11/24/17 03:19 Pulse 54 L 11/24/17 08:00 Resp 16 11/24/17 08:00 BP 134/56 11/24/17 08:00 Pulse Ox 100 11/24/17 08:00 Intake & Output 11/23/17 11/24/17 11/24/17 18:59 06:59 18:59 Intake Total 540 Output Total 600 Balance -60 Weight 86.5 kg Intake: Oral 540 Output: Urine 600 Other: Voiding Method Toilet Toilet Toilet # Voids 1 - Exam PHYSICAL EXAMINATION: GENERAL: 82-year-old gentleman in no apparent distress at time of our examination. HEENT: Head is atraumatic, normocephalic. Pupils equal, round. Sclera anicteric. Conjunctiva are clear. Mucous membranes of the mouth are moist. Neck is supple. There is no elevated jugular venous pressure.] bruit is heard. HEART EXAMINATION: Heart S1, S2 normal. No murmur or gallop heard. CHEST EXAMINATION: Lungs are clear to auscultation and precussion. No chest wall tenderness is noted on palpation or with deep breathing. ABDOMEN: Soft, nontender. Bowel sounds are heard. No organomegaly noted. Right groin soft no evidence of any hematoma. EXTREMITIES: 2+ peripheral pulses with no evidence of peripheral edema and no calf tenderness noted. NEUROLOGIC patient is awake, alert and oriented -3. . - Labs CBC & Chem 7: 11/24/17 06:34 11/24/17 06:34 Labs: Abnormal Lab Results - Last 24 Hours (Table) 11/22/17 11/23/17 11/23/17 Range/Units 10:50 12:04 17:01 RBC (4.30-5.90) m/uL Hgb (13.0-17.5) gm/dL Hct (39.0-53.0) % RDW (11.5-15.5) % Plt Count (150-450) k/uL Potassium (3.5-5.1) mmol/L BUN (9-20) mg/dL Creatinine (0.66-1.25) mg/dL Glucose (74-99) mg/dL POC Glucose (mg/dL) 171 H 181 H (75-99) mg/dL Hemoglobin A1c 6.6 H (4.0-6.0) % 11/23/17 11/24/17 11/24/17 Range/Units 21:02 05:59 06:34 RBC 4.16 L (4.30-5.90) m/uL Hgb 11.9 L (13.0-17.5) gm/dL Hct 36.1 L (39.0-53.0) % RDW 16.4 H (11.5-15.5) % Plt Count 146 L (150-450) k/uL Potassium (3.5-5.1) mmol/L BUN (9-20) mg/dL Creatinine (0.66-1.25) mg/dL Glucose (74-99) mg/dL POC Glucose (mg/dL) 193 H 115 H (75-99) mg/dL Hemoglobin A1c (4.0-6.0) % 11/24/17 Range/Units 06:34 RBC (4.30-5.90) m/uL Hgb (13.0-17.5) gm/dL Hct (39.0-53.0) % RDW (11.5-15.5) % Plt Count (150-450) k/uL Potassium 3.0 L* (3.5-5.1) mmol/L BUN 57 H (9-20) mg/dL Creatinine 1.83 H (0.66-1.25) mg/dL Glucose 105 H (74-99) mg/dL POC Glucose (mg/dL) (75-99) mg/dL Hemoglobin A1c (4.0-6.0) % Assessment and Plan Plan: Assessment and plan #1 status post abdominal aortogram and bilateral lower extremity runoff #2 third-degree heart block #3 hypertension #4 diabetes #5 hyperlipidemia Plan We will obtain a free T4 and TSH level, replace potassium, increase IV fluids to 100 mL per hour. We will also obtain an echocardiogram with Doppler study. Patient is scheduled to undergo implantation of permanent pacemaker on Sunday with Dr. Tellez. Repeat lytes BUN and creatinine in the morning. DNP note has been reviewed, I agree with a documented findings and plan of care. Patient was seen and examined.
[2017-11-24 11:33] LABS: Glucose,Whole Blood 227 mg/dL (75-99)
[2017-11-24] MEDS: NITROGLYCERIN OINT 1 INCH/GM PACKET TOPICAL SCH ×3 (12:51→23:03)
--- NOTE | 2017-11-24 14:23 | ECHOF ---
Referral Reason:heart block MEASUREMENTS -------- HEIGHT: 172.7 cm WEIGHT: 86.2 kg BP: 134/56 RVIDd: 3.4 cm (< 3.3) IVSd: 1.1 cm (0.6 - 1.1) LVIDd: 4.6 cm (3.9 - 5.3) LVPWd: 1.2 cm (0.6 - 1.1) IVSs: 1.8 cm LVIDs: 2.7 cm LVPWs: 1.7 cm LA Diam: 4.3 cm (2.7 - 3.8) LAESV Index (A-L): 36.13 ml/m Ao Diam: 3.3 cm (2.0 - 3.7) AV Cusp: 1.8 cm (1.5 - 2.6) MV EXCURSION: 19.783 mm (> 18.000) MV EF SLOPE: 174 mm/s (70 - 150) EPSS: 0.5 cm RAP: 5.00 mmHg RVSP: 17.74 mmHg FINDINGS -------- This was a technically adequate study. The left ventricular size is normal. There is borderline concentric left ventricular hypertrophy. Overall left ventricular systolic function is normal with, an EF between 55 - 60 %. The right ventricle is mildly enlarged. LA is moderately dilated 34-39 ml/m2 The right atrium is normal in size. There is mild aortic valve sclerosis. The mitral valve leaflets are mildly thickened. Mild mitral annular calcification present. There is trace to mild mitral regurgitation. Mild tricuspid regurgitation present. Right ventricular systolic pressure is normal at < 35 mmHg. Trace/mild (physiologic) pulmonic regurgitation. The aortic root size is normal. IVC Not well visulized. There is no pericardial effusion. CONCLUSIONS -------- 1. This was a technically adequate study. 2. The left ventricular size is normal. 3. There is borderline concentric left ventricular hypertrophy. 4. Overall left ventricular systolic function is normal with, an EF between 55 - 60 %. 5. The right ventricle is mildly enlarged. 6. LA is moderately dilated 34-39 ml/m2 7. The right atrium is normal in size. 8. There is mild aortic valve sclerosis. 9. The mitral valve leaflets are mildly thickened. 10. Mild mitral annular calcification present. 11. There is trace to mild mitral regurgitation. 12. Mild tricuspid regurgitation present. 13. Right ventricular systolic pressure is normal at < 35 mmHg. 14. Trace/mild (physiologic) pulmonic regurgitation. 15. The aortic root size is normal. 16. IVC Not well visulized. 17. There is no pericardial effusion. BATCH ATTENDANT: Sari Ventura RDCS
[2017-11-24 16:45] LABS: Glucose,Whole Blood 143 mg/dL (75-99)
[2017-11-24 17:12] LABS: Glucose,Whole Blood 131 mg/dL (75-99)
[2017-11-24 20:46] LABS: Glucose,Whole Blood 85 mg/dL (75-99)
[2017-11-25 06:16] LABS: Glucose,Whole Blood 95 mg/dL (75-99)
[2017-11-25] MEDS: SODIUM CHLORIDE 0.9% 1,000 ML IV SCH ×2 (06:22→16:48)
[2017-11-25] MEDS: INSULIN NPH/REG INSULIN 70/30 300 UNIT/3 ML VIAL SQ SCH ×3 (07:02→16:47)
[2017-11-25] MEDS: NITROGLYCERIN OINT 1 INCH/GM PACKET TOPICAL SCH ×2 (07:02→21:25)
[2017-11-25] MEDS: ASPIRIN 81 MG PO SCH (08:09)
[2017-11-25] MEDS: ATORVASTATIN 40 MG TAB PO SCH (08:09)
[2017-11-25] MEDS: CLOPIDOGREL 75 MG TAB PO SCH (08:10)
[2017-11-25 11:29] LABS: Glucose,Whole Blood 150 mg/dL (75-99)
--- NOTE | 2017-11-25 11:32 | HP ---
HISTORY AND PHYSICAL ATTENDING PHYSICIAN: Dr. Campbell Ferrera. CHIEF COMPLAINT: Complete heart block. HISTORY OF PRESENT ILLNESS: This 82-year-old gentleman was transferred to my service last evening by Cardiology who had him on their service following an aortography. Apparently, the patient at the time had some vasovagal episode and thus he was kept under observation under their services. While on the telemetry, the patient did exhibit some evidence of complete heart block and so yesterday afternoon they elected to admit the patient under my service. The patient is seen within 24 hours of being admitted to my service. The patient has no symptoms at present. His blood pressure is adequately controlled. He does have significant peripheral arterial disease and has a small blood blister on the right 4th toe and in view of this, he was brought in for this aortographic evaluation. The patient does have a history of renal disease and his BUN was 57, creatinine 1.83 on 11/24/2017. Apparently, no renal function on chart from prior arteriography. On 01/18/2017 his creatinine was 1.46. It was up to 3.50 on 03/10/2017. On 11/24/2017, patient's potassium was 3.0, INR 1.83. The creatinine 1.83. TSH was 11.4. Otherwise patient has no other symptoms relating to his bradycardia. PAST MEDICAL HISTORY: Significant for coronary artery disease with previous myocardial infarction. History of peripheral arterial disease with the revascularization procedures mostly arthrectomy and stenting. 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 Also has a history of peripheral neuritis. History of hypertension. No history of any lung disease, liver disease, thyroid condition, ulcers, TB, hepatitis. No history of any rheumatic fever. The patient has a history of myocardial infarction. No history of CVA. PAST SURGICAL HISTORY: Significant for tonsillectomy, right inguinal herniorrhaphy, circumcision, previous colonoscopy 2007, left hip ORIF. SOCIAL HISTORY: Patient is . He lives with his son now. PERSONAL HISTORY: He was never a smoker. No alcohol. VACCINATIONS: He does get annual flu shots and has been vaccinated for Pneumovax. ALLERGIES: None known. MEDICATIONS: Medications at present include: Insulin 70/30, Novolin 15 units a.c. t.i.d. The patient also has HydroDIURIL 25 mg daily, Lasix 40 mg daily, Plavix 75 mg daily, Lipitor 40 mg daily, aspirin 325 mg daily. Metoclopramide 10 mg p.r.n. The patient is not on TOBY inhibitor due to hyperkalemia associated with renal disease and diabetic. The patient is not on a beta marvin. FAMILY MEDICAL HISTORY: Father at the age of 46 post goiter surgery. Mother at the age of 60 in a motor vehicle accident. He had a brother, 83, . He had a history of diabetes mellitus, Parkinson's. Sister at the age of 64. She had renal failure and rheumatoid arthritis. She also had coronary artery disease and diabetes mellitus. He had brother 78 years of age with history of CVA. Patient has a son, 64, with history of diabetes mellitus, obesity. Another son at age of 50 with an acute myocardial infarction. He was a diabetic too. REVIEW OF SYSTEMS: NEURO: Denies any headaches, dizziness. No double vision, blurred vision. An episode of faintness. No symptoms of syncope or seizures. PSYCH: No anxiety or depression. CARDIAC: Denies chest pain, angina, palpitation. RESPIRATORY: Denies shortness of breath, cough, hemoptysis. GI: Denies any nausea, vomiting, abdominal pain, diarrhea, constipation, hematochezia, melena. : Denies symptoms of dysuria, hematuria. Does have frequency. EXTREMITIES: Does have history of chronic edema with chronic venostasis changes, both of skin and pigmentation. Also history of peripheral arterial disease. 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 The patient has not no sensations in lower extremities. HEMATOLOGICAL: No anemia or bleeding disorder. SKIN: Superficial ulcerations on the skin. PHYSICAL EXAMINATION: Reveals vital signs are temperature 97, pulse 55, respirations 16, blood pressure 143/60, pulse ox 96% on room air. HEENT: Normocephalic. Pupils are reactive. Oral cavity is dry. Neck reveals no JVD. Faint carotid bruits. CHEST EXAMINATION: Clear to auscultation and percussion. CARDIAC: Normal S1, S2 with no gallops. Systolic murmur 2/6 at apex. ABDOMEN: Soft. Bowel sounds are present. EXTREMITIES: Reveals trace edema. No pedal pulses. Feet reveal scabbed area on the right 4th toe, absent 2nd toe, onychomycotic nails. The patient has no ulcerations of the feet. The patient has no sensations in the feet. No pedal pulses are palpable in the feet. NEUROLOGICAL: Awake, alert, oriented x3 with well-coordinated movements. LABORATORY ASSESSMENT: From yesterday: Potassium 3.0, BUN 57, creatinine 1.83, glucose was 227 this morning. TSH was 11.4. ASSESSMENT: 1. Complete heart block. 2. Coronary artery disease. 3. Peripheral arterial disease. 4. Diabetes mellitus with complications of retinopathy, peripheral neuropathy, and peripheral arterial disease. 5. Chronic hypertension with venostasis lower legs. 6. Hypokalemia with no consequences. 7. Hypothyroidism. 8. Chronic kidney disease stage III. PLAN: The patient at present will be started on Synthroid. We will also recheck labs today. Will obtain electrolytes, BUN, creatinine today. Start the patient on Synthroid 0.05 mg. Patient's condition discussed with the patient. The patient is planned for pacemaker in view of the complete heart block felt not related to hypokalemia. MMODL / IJN: [id number] /
[2017-11-25 12:06] LABS: Calcium 8.1 mg/dL (8.4-10.2); Potassium 3.5 mmol/L (3.5-5.1)
--- NOTE | 2017-11-25 13:11 | PN ---
PROGRESS NOTE DATE OF SERVICE: 11/25/2017. HISTORY: Mr. Calderón is an 82-year-old gentleman who was admitted to hospital with peripheral vascular disease, following peripheral intervention. The patient developed complete heart block and he will undergo a permanent pacemaker tomorrow. PHYSICAL EXAMINATION: On exam, he is comfortable at rest. Vital signs are stable. There is no jugular venous distention. Heart rate is in the 40s. There is no jugular venous distention. Carotid upstroke is normal. There is no bruit. Chest exam reveals good air entry bilaterally. Heart exam reveals first and second heart sounds. No gallop. Exam of the extremities did not reveal any edema. Peripheral pulses are felt. LABS: Labs show a BUN of 49, creatinine of 1.5. Potassium is 3.5. CBC shows a hemoglobin of 12. ASSESSMENT: 1. Complete heart block, currently stable. 2. Peripheral vascular disease, status post intervention. PLAN: The patient will undergo permanent pacemaker tomorrow. MMODL / IJN: [id number] /
[2017-11-25 16:40] LABS: Glucose,Whole Blood 192 mg/dL (75-99)
[2017-11-25 20:53] LABS: Glucose,Whole Blood 183 mg/dL (75-99)
[2017-11-26] MEDS: SODIUM CHLORIDE 0.9% 1,000 ML IV SCH (02:04)
[2017-11-26] MEDS ORDERED: ceFAZolin 1,000 MG in SODIUM CHLORIDE 0.9% IRRIGATIO 250 ML IRRIGATION ONE (06:00)
[2017-11-26] MEDS ORDERED: ceFAZolin IN SWFI 2 GM/20 ML SYRINGE IVP ONE (06:00)
[2017-11-26] MEDS: INSULIN NPH/REG INSULIN 70/30 300 UNIT/3 ML VIAL SQ SCH ×3 (06:11→16:49)
[2017-11-26] MEDS: LEVOTHYROXINE 50 MCG TAB PO SCH (06:50)
[2017-11-26 06:53] LABS: Calcium 8.8 mg/dL (8.4-10.2); Potassium 4.2 mmol/L (3.5-5.1)
[2017-11-26 06:54] LABS: Glucose,Whole Blood 88 mg/dL (75-99)
[2017-11-26] MEDS: ASPIRIN 81 MG PO SCH (07:57)
[2017-11-26] MEDS: ATORVASTATIN 40 MG TAB PO SCH (07:58)
[2017-11-26] MEDS: CLOPIDOGREL 75 MG TAB PO SCH (07:58)
[2017-11-26] MEDS: HYDROCHLOROTHIAZIDE 25 MG TAB PO SCH (07:58)
[2017-11-26] MEDS: METOCLOPRAMIDE 10 MG TAB PO SCH (07:58)
[2017-11-26] MEDS ORDERED: LIDOCAINE 1% INJ 10MG/ML (20 ML MDV) ONE (09:08)
--- NOTE | 2017-11-26 09:42 | P.PN ---
Subjective Principal diagnosis: Patient examined this morning. Lying comfortably in bed. No chest discomfort or dizziness lightheadedness. He went into atrial fibrillation over the weekend. Previously he was in sinus rhythm with third degree heart block without any triggering factors Normal potassium Not on any medications that would precipitate bradycardia Plan Dual-chamber pacemaker implant today Objective - Vital Signs Vital signs: Vital Signs Temp 99.1 F 11/26/17 08:00 Pulse 56 L 11/26/17 08:00 Resp 16 11/26/17 08:00 BP 149/77 11/26/17 08:00 Pulse Ox 99 11/26/17 08:00 Intake & Output 11/25/17 11/26/17 11/26/17 18:59 06:59 18:59 Intake Total 720 720 Output Total 300 Balance 720 420 Weight 88.9 kg Intake: Oral 720 720 Output: Urine 300 Other: Voiding Method Toilet Toilet # Voids 1 3 # Bowel Movements 1 - Labs CBC & Chem 7: 11/24/17 06:34 11/26/17 06:14 Labs: Abnormal Lab Results - Last 24 Hours (Table) 11/25/17 11/25/17 11/25/17 Range/Units 11:27 11:30 16:35 BUN 49 H (9-20) mg/dL Creatinine 1.58 H (0.66-1.25) mg/dL Glucose 123 H (74-99) mg/dL POC Glucose (mg/dL) 150 H 192 H (75-99) mg/dL Calcium 8.1 L (8.4-10.2) mg/dL 11/25/17 11/26/17 Range/Units 20:51 06:14 BUN 39 H (9-20) mg/dL Creatinine 1.40 H (0.66-1.25) mg/dL Glucose (74-99) mg/dL POC Glucose (mg/dL) 183 H (75-99) mg/dL Calcium (8.4-10.2) mg/dL
[2017-11-26] MEDS ORDERED: SODIUM CHLORIDE 0.9% 500 ML IV ONE ×2 (10:03)
[2017-11-26] MEDS ORDERED: IOPAMIDOL-250 50ML BTL IV ONE (10:13)
[2017-11-26] MEDS ORDERED: MIDAZOLAM 2 MG/2 ML VIAL ONE (10:29)
[2017-11-26] MEDS ORDERED: MIDAZOLAM 2 MG/2 ML VIAL IV ONE (10:31)
[2017-11-26] MEDS ORDERED: NITROGLYCERIN OINT 1 INCH/GM PACKET TOPICAL ONE ×2 (10:40→10:41)
[2017-11-26] MEDS ORDERED: LIDOCAINE 2% INJ 20 MG/ML SQ ONE (10:50)
[2017-11-26] MEDS ORDERED: LIDOCAINE 1% INJ 10MG/ML (20 ML MDV) SQ ONE ×2 (10:50→10:58)
[2017-11-26] MEDS ORDERED: fentaNYL (PF) 50 MCG/ML 2 ML AMP ONE (11:07)
[2017-11-26] MEDS ORDERED: fentaNYL (PF) 50 MCG/ML 2 ML AMP IV ONE (11:13)
[2017-11-26] MEDS ORDERED: ONDANSETRON 4 MG/2 ML VIAL ONE (11:26)
[2017-11-26] MEDS ORDERED: ONDANSETRON 4 MG/2 ML VIAL IVP ONE (11:28)
--- NOTE | 2017-11-26 11:45 | P.PCN ---
Preoperative Diagnosis: Patient underwent EP procedure under conscious sedation/moderate sedation, monitoring of the level of consciousness and physiologic parameters including but not limited to vital signs and oxygenation. Patient tolerated the procedure well without any acute complications. Start time: 1044 Stop time: 1144 Condition: stable
--- NOTE | 2017-11-26 11:55 | P.PN ---
Progress Note - Text Blood pressure was elevated in during the procedure despite sedation. Amlodipine started 5 mg daily. Patient is diabetic and later johnny inhibitors or ARB should also be considered. Will watch for episodes of atrial fibrillation and anticoagulate after a week. Amlodipine 5 g by mouth daily started Aspirin reduced to 81 mg by mouth daily
--- NOTE | 2017-11-26 12:24 | CE ---
CARDIAC ELECTROPHYSIOLOGY REPORT An 82-year-old male patient who was initially admitted for evaluation of peripheral vascular disease was found to be in third-degree heart block without any triggering factors. Potassium normal. No AV chavo blocking drugs. Later he also had an episode of atrial fibrillation with a controlled ventricular response. He has a history of hypertension, chronic kidney disease, diabetes and PVD. The patient is brought to the EP lab in a fasting state. Written informed consent was obtained prior to the procedure. The left shoulder area was prepped and draped as per protocol and 1% lidocaine was used for local anesthesia. A 4 cm incision was made parallel to the deltopectoral groove, about 1.5 cm medial to it. The incision was carried down to the level of the pectoralis muscle. A subfascial pocket was made. Hemostasis was assured. The left axillary vein was accessed at 2 separate points under fluoroscopy and via appropriately-sized introducer sheaths 2 leads were positioned in the right heart. The atrial lead was positioned in the right atrial appendage. This was a [employer] model #1944, 46 cm in length and serial #[id number]. P waves 5 mV, pacing impedance 560 ohms, pacing threshold 0.3 V at 0.5 milliseconds. The RV lead was a [employer] model #1948, 58 cm in length and serial #[id number]. R-waves 8 mV, pacing impedance 700 ohms, pacing threshold 0.5 V at 0.5 milliseconds. Ten volt test was negative. Both leads were secured to the underlying pectoralis fascia using 2 nonabsorbable sutures. The leads were connected to the generator ([employer] model #SY3054, serial #[id number]. Leads and the generator were then placed in the subfascial pocket. The wound was closed in 3 layers and dressed per protocol. RESULTS: Successful dual chamber pacemaker implantation for complete heart block. Procedure was performed under conscious sedation. Please see separate report of conscious sedation. The patient tolerated the procedure well without any acute complications. MMODL / IJN: [id number] /
[2017-11-26] MEDS: amLODIPine 5 MG TAB PO SCH (12:39)
[2017-11-26 12:48] LABS: Glucose,Whole Blood 102 mg/dL (75-99)
[2017-11-26 16:52] LABS: Glucose,Whole Blood 220 mg/dL (75-99)
--- NOTE | 2017-11-26 18:36 | PN ---
PROGRESS NOTE CHIEF COMPLAINT: Re-evaluation. HISTORY OF PRESENT ILLNESS: This is an 82-year-old gentleman who was admitted to the hospital for an aortogram as outpatient. The patient had a near-syncopal episode. At the time it was felt to be probably vasovagal. The patient, however, was kept over for observation, during which period he exhibited evidence of complete heart block. In view of this, the patient is scheduled to undergo a pacemaker today. The patient has no symptoms. He occasionally gets dizzy lately and has been feeling tired. REVIEW OF SYSTEMS: NEURO: Denies any headaches, dizziness. PSYCH: No anxiety. CARDIAC: No chest pain, angina, palpitation. RESPIRATORY: Denies shortness of breath, cough. GI: No nausea, vomiting, abdominal pain, diarrhea. No bowel movement yet. : No symptoms of dysuria, hematuria. EXTREMITIES: Denies pain. Does have mild edema. CONSTITUTIONAL: No fever or chills. PHYSICAL EXAMINATION: Pleasant gentleman in no distress. Vital signs reveal at the time of evaluation temperature 99.1, pulse 56, respirations 16, blood pressure 149/77, pulse ox 99% on room air. HEENT: Normocephalic. NECK: No JVD. CHEST: Clear to auscultation. CARDIAC: Normal S1, S2 with no gallop. Systolic murmur 2/6 at the apex. ABDOMEN: Soft. Bowel sounds present. EXTREMITIES: Extremities reveal trace edema. No pedal pulses palpable. SKIN: Skin has significant changes of stasis dermatitis. The patient also has healing scabs on the left chin and right fourth toe. LABORATORY ASSESSMENT: Electrolytes are normal. BUN 39, creatinine 1.4. Sugar is adequately controlled. He does have blood sugar of 89. ASSESSMENT: 1. 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 2. Stable coronary artery disease. 3. Complete heart block. 4. Hypertension. 5. Chronic venostasis changes, both lower extremities. PLAN: Patient is stable. Continue present medical regimen. Patient's condition was discussed with the patient. Prognosis guarded. The patient is scheduled to have a pacemaker placed today. Potential discharge home tomorrow. MMODL / IJN: [id number] /
[2017-11-26] MEDS ORDERED: ACETAMINOPHEN TAB 325 MG TAB ONE (20:41)
[2017-11-26] MEDS ORDERED: ACETAMINOPHEN TAB 325 MG TAB PO PRN (20:43)
[2017-11-26 20:45] LABS: Glucose,Whole Blood 243 mg/dL (75-99)
[2017-11-26] MEDS: ceFAZolin IN SWFI 2 GM/20 ML SYRINGE IVP SCH (21:29)
[2017-11-27] MEDS: SODIUM CHLORIDE 0.9% 1,000 ML IV SCH (00:37)
[2017-11-27] MEDS: ceFAZolin IN SWFI 2 GM/20 ML SYRINGE IVP SCH ×3 (03:45→14:55)
[2017-11-27 05:56] LABS: Glucose,Whole Blood 128 mg/dL (75-99)
[2017-11-27] MEDS: LEVOTHYROXINE 50 MCG TAB PO SCH (06:50)
[2017-11-27] MEDS: INSULIN NPH/REG INSULIN 70/30 300 UNIT/3 ML VIAL SQ SCH ×2 (06:50→12:11)
[2017-11-27] MEDS: CLOPIDOGREL 75 MG TAB PO SCH (07:57)
[2017-11-27] MEDS: amLODIPine 5 MG TAB PO SCH (07:57)
[2017-11-27] MEDS: METOCLOPRAMIDE 10 MG TAB PO SCH (07:57)
[2017-11-27] MEDS: ATORVASTATIN 40 MG TAB PO SCH (08:04)
[2017-11-27 08:12] VITALS: RESP 16
[2017-11-27] MEDS ORDERED: ASPIRIN 81 MG PO SCH (09:00)
[2017-11-27] MEDS ORDERED: HYDROCHLOROTHIAZIDE 25 MG TAB PO SCH (09:00)
--- NOTE | 2017-11-27 09:09 | XR ---
EXAMINATION TYPE: XR chest 1V DATE OF EXAM: 11/27/2017 COMPARISON: 07/07/2013 HISTORY: Pacemaker placement TECHNIQUE: Single frontal view of the chest is obtained. FINDINGS: There is a double lead pacemaker with the proximal lead overlying the right atrium and dis jennifer lead overlying the right ventricle. No sizable pneumothorax. No overt failure. Atherosclerotic ch barak aorta. Arthropathy of the shoulders. IMPRESSION: Pacemaker appears in good position with no postprocedural complication.
[2017-11-27 11:50] LABS: Glucose,Whole Blood 137 mg/dL (75-99)
--- NOTE | 2017-11-27 14:28 | P.PN ---
Subjective Progress Note Date: 11/27/17 Principal diagnosis: Complete heart block This is an 82-year-old gentleman with known history of hypertension, diabetes, hyperlipidemia, was admitted to the hospital by Dr. Clemente to undergo abdominal aortogram and bilateral lower extremity runoff. Patient was initially on the observation unit, became vasovagal and shortly after it was noted that the patient went into complete heart block. For this reason patient was asked again to be evaluated today by cardiology. Patient has been seen in consultation by Dr. VC Stanton. Recommendations were made to transfer the patient to the telemetry unit, with a life pack at bedside. Patient will be scheduled to undergo implantation of a permanent pacemaker by Dr. Tellez on Sunday. At the time of my examination, patient is sitting up in chair alert and oriented 3, asymptomatic. Heart rate low 40s. Blood pressure 140/60 afebrile, 97% on room air. We will check a TSH level today, repeat lytes BUN and creatinine. 11/24/2017 Patient was seen and examined this morning, feels well, no dizziness or lightheadedness. Continues to be in a complete heart block with a heart rate in the 40s. Blood pressure 134/56. White blood cell count 7.1, hemoglobin 11.9 , platelet count 146. Sodium 141, potassium 3.0, BUN 57, creatinine 1.8. 11/27/2017 Patient underwent implantation of a permanent pacemaker yesterday by Dr. Tellez. Device was interrogated this morning and is functioning appropriately. Chest x-ray was reviewed and does not show any evidence of a pneumothorax. Patient is hemodynamically stable. Objective - Vital Signs Vital signs: Vital Signs Temp 98.2 F 11/27/17 08:00 Pulse 58 L 11/27/17 08:00 Resp 16 11/27/17 08:00 BP 139/83 11/27/17 08:00 Pulse Ox 98 11/27/17 08:00 Intake & Output 11/26/17 11/27/17 11/27/17 18:59 06:59 18:59 Intake Total 772 118 Output Total 300 Balance 472 118 Weight 83.7 kg Intake: IV 300 Oral 472 118 Output: Urine 300 Other: Voiding Method Toilet Toilet Toilet # Voids 1 3 - Exam PHYSICAL EXAMINATION: GENERAL: 82-year-old gentleman in no apparent distress at time of our examination. HEENT: Head is atraumatic, normocephalic. Pupils equal, round. Sclera anicteric. Conjunctiva are clear. Mucous membranes of the mouth are moist. Neck is supple. There is no elevated jugular venous pressure.] bruit is heard. HEART EXAMINATION: Heart S1, S2 normal. No murmur or gallop heard. Slight of pacemaker implantation, dressing is dry and intact. CHEST EXAMINATION: Lungs are clear to auscultation and precussion. No chest wall tenderness is noted on palpation or with deep breathing. ABDOMEN: Soft, nontender. Bowel sounds are heard. No organomegaly noted. Right groin soft no evidence of any hematoma. EXTREMITIES: 2+ peripheral pulses with no evidence of peripheral edema and no calf tenderness noted. NEUROLOGIC patient is awake, alert and oriented -3. . - Labs CBC & Chem 7: 11/24/17 06:34 11/26/17 06:14 Labs: Abnormal Lab Results - Last 24 Hours (Table) 11/26/17 11/26/17 11/27/17 Range/Units 16:37 20:42 05:54 POC Glucose (mg/dL) 220 H 243 H 128 H (75-99) mg/dL 11/27/17 Range/Units 11:35 POC Glucose (mg/dL) 137 H (75-99) mg/dL Assessment and Plan Plan: Assessment and plan #1 status post abdominal aortogram and bilateral lower extremity runoff #2 third-degree heart block, status post implantation of permanent pacemaker #3 hypertension #4 diabetes #5 hyperlipidemia Plan From cardiology's perspective, patient may be able to be discharged home today. We'll make an appointment in the device clinic in 5 days, then follow-up appointment with Dr. Clemente will be made in the office. DNP note has been reviewed, I agree with a documented findings and plan of care. Patient was seen and examined.
[2017-11-27 15:15] VITALS: BP 172/68; PULSE 60; TEMP 99.1
--- NOTE | 2017-11-27 15:38 | P.PN ---
Progress Note - Text Progress Note Date: 11/27/17 This is an addendum to the cardiology progress dictated today. Patient is remaining in normal sinus rhythm, he did have one episode of atrial fibrillation documented this admission, paroxysmal. DNP note has been reviewed, I agree with a documented findings and plan of care. Patient was seen and examined.
--- NOTE | 2017-11-28 09:30 | IR ---
Fluoroscopy HISTORY: Foot ulcer 1.6 minutes fluoroscopy time supplied to the referring clinician. 147 intraoperative C-arm images do cument the procedure. See dictated report from cardiology.
== END 2017-11-27 15:30 | disposition home or self-care (01) | DRG 244 ==
LOC: CATHCVL 10:20 → 3OBS 13:10 → CATHCVL 11-23 12:38 → 3OBS 11-23 12:38 → 6SEL 11-23 13:50 → UNDODISIN 11-24 14:17
PROVIDERS: ADMIT Internal Medicine; ATTEND Internal Medicine
PROC: B41D1ZZ Fluoroscopy of Aorta and Bilateral Lower Extremity Arteries using Low Osmolar Contrast (ICD-10-PCS; 2017-11-23)
PROC: 02HK3JZ Insertion of Pacemaker Lead into Right Ventricle, Percutaneous Approach (ICD-10-PCS; principal; 2017-11-26 10:00)
PROC: 0JH606Z Insertion of Pacemaker, Dual Chamber into Chest Subcutaneous Tissue and Fascia, Open Approach (ICD-10-PCS; principal; 2017-11-26 10:00)
PROC: 4A0234Z Measurement of Cardiac Electrical Activity, Percutaneous Approach (ICD-10-PCS; principal; 2017-11-26 10:00)
PROC: 4A023FZ Measurement of Cardiac Rhythm, Percutaneous Approach (ICD-10-PCS; principal; 2017-11-26 10:00)
PROC: 02H70JZ Insertion of Pacemaker Lead into Left Atrium, Open Approach (ICD-10-PCS; principal; 2017-11-26 10:00)
DX: I44.2 Atrioventricular block, complete (principal); E03.9 Hypothyroidism, unspecified; E11.22 Type 2 diabetes mellitus with diabetic chronic kidney disease; E11.319 Type 2 diabetes mellitus with unspecified diabetic retinopathy without macular edema; E11.39 Type 2 diabetes mellitus with other diabetic ophthalmic complication; E11.42 Type 2 diabetes mellitus with diabetic polyneuropathy; E11.51 Type 2 diabetes mellitus with diabetic peripheral angiopathy without gangrene; E11.621 Type 2 diabetes mellitus with foot ulcer; E78.5 Hyperlipidemia, unspecified; E87.5 Hyperkalemia; H54.8 Legal blindness, as defined in USA; I12.9 Hypertensive chronic kidney disease with stage 1 through stage 4 chronic kidney disease, or unspecified chronic kidney disease; I25.10 Atherosclerotic heart disease of native coronary artery without angina pectoris; I25.2 Old myocardial infarction; L97.509 Non-pressure chronic ulcer of other part of unspecified foot with unspecified severity; N18.3 Chronic kidney disease, stage 3 (moderate); Z79.02 Long term (current) use of antithrombotics/antiplatelets; Z79.82 Long term (current) use of aspirin; Z79.899 Other long term (current) drug therapy; Z82.0 Family history of epilepsy and other diseases of the nervous system; Z82.49 Family history of ischemic heart disease and other diseases of the circulatory system; Z83.3 Family history of diabetes mellitus; Z86.73 Personal history of transient ischemic attack (TIA), and cerebral infarction without residual deficits; I48.0 Paroxysmal atrial fibrillation; I87.8 Other specified disorders of veins
CPT/HCPCS: 33208; 36200; 71045; 75625; 75716; 80048; 83036; 84443; 85025; 93306

== ENCOUNTER → 2018-01-01 | Outpatient (CLI) | payer MEDICARE | END | disposition home or self-care (01) | LOC: LABWHC1 10:20 | PROVIDERS: ATTEND Internal Medicine | DX: Z53.9 Procedure and treatment not carried out, unspecified reason (principal) ==

== ENCOUNTER → 2018-01-01 | Outpatient (CLI) | payer MEDICARE ==
[2018-01-01 11:10] LABS: HCT 42.3 % (39.0-53.0); HGB 13.7 gm/dL (13.0-17.5); MCH 28.8 pg (25.0-35.0); MCHC 32.3 g/dL (31.0-37.0); MCV 89.2 fL (80.0-100.0); Mean Platelet Volume 6.6; Platelet Count 167 k/uL (150-450); RBC 4.75 m/uL (4.30-5.90); RDW 15.9 % (11.5-15.5)
[2018-01-01 11:20] LABS: Calcium 9.3 mg/dL (8.4-10.2); Potassium 3.5 mmol/L (3.5-5.1)
[2018-01-01 20:17] LABS: Hemoglobin A1C 6.5 % (4.0-6.0)
== END | disposition home or self-care (01) ==
LOC: LABPAT 10:18
PROVIDERS: ATTEND Internal Medicine Interventional Cardiology
DX: Z01.812 Encounter for preprocedural laboratory examination (principal); I73.9 Peripheral vascular disease, unspecified
CPT/HCPCS: 36415; 80048; 82043; 82570; 83036; 85027

== ENCOUNTER 2018-01-09 16:54 | Day surgery (SDC) | payer MEDICARE ==
[2018-01-07 11:03] VITALS: BMI 29.5
[2018-01-09 09:22] LABS: Glucose,Whole Blood 195 mg/dL (75-99)
[2018-01-09] MEDS: NITROGLYCERIN 1000MCG/10ML SYRINGE INTRAARTER ONE ×3 (11:14→12:02)
[2018-01-09] MEDS: niCARdipine Syringe (1,000 mcg/10 mL) INTRAARTER ONE ×3 (11:15→12:02)
--- NOTE | 2018-01-09 12:56 | LTR ---
DATE OF SERVICE: 01/09/2018 RE: Stephane Jeb Dear Dr. Ferrera. Mr. Jeb Calderón underwent successful balloon angioplasty of the left femoral artery with good angiographic results and reduction of stenosis from 80% to 0%. No complication. Thank you for allowing me to participate in his care and please do not hesitate to call if you have any question or concern. Sincerely, MD ANTONIO Crews / RAVENN: [id number] /
--- NOTE | 2018-01-09 13:06 | AN ---
ANGIOGRAPHY REPORT PERCUTANEOUS PERIPHERAL INTERVENTION DATE OF SERVICE: January 09, 2018 PERFORMING PHYSICIAN: Bebo Malone MD, data warehousing engineer. PROCEDURE PERFORMED: 1. Selective left [id number]-ynk-[id number] angiogram. 2. Selective left popliteal/left SFA angiogram. 3. Selective right common femoral artery angiogram. 4. Atherectomy of the left popliteal using the TurboHawk device with adjunctive use of distal protection device. 5. Balloon angioplasty of the left popliteal artery. 6. Stenting of the left popliteal using 7.0 x 120 and 7.0 x 60 mm Zilver PTX drug coated stent with good angiographic results and reduction of stenosis from 90% to 0%. INDICATION: This is a pleasant 83-year-old gentleman with known history of peripheral arterial disease who was struggling with critical limb ischemia of both feet. He underwent a peripheral angiogram a few weeks ago and that showed critical disease involving the left popliteal artery. APPROACH: Right common femoral artery. COMPLICATION: None. LEVEL OF SEDATION: Moderate with sedation length of 2 hours and 6 minutes. PROCEDURE DESCRIPTION: After obtaining an informed consent, the patient was brought to cardiac physical laboratory assistant. The right common femoral artery was cannulated using micropuncture technique and a micropuncture wire passed easily then I placed an 11 cm 6-American sheath in the right common femoral artery. After that I did select the left SFA using a Rim catheter with 0.035 advantage wire. I attempted changing the 6-American 11 cm sheath into 55 cm 6- American sheath using the Advantage wire, but the sheath will not make the turn, but I was able to go up and over using a support with multipurpose catheter. The tip of the sheath was positioned in the left common femoral artery. At that point, anticoagulation was initiated using heparin and the patient was given 8,000 units of heparin with continuous ACT monitoring throughout the procedure. Subsequently I did exchange my 0.035 Glidewire into a FilterWire using an 0.035 CXI catheter. Subsequently I did multiple runs of directional atherectomy using the TurboHawk device. After that I did balloon angioplasty initially using 5 mm balloon. Subsequently I did for the distal left popliteal use a drug coated balloon which was 6 x 60 mm. The following angiogram showed good angiographic results. The area by the distal left SFA/proximal left popliteal was hazy and tight in spite of the balloon and at that point I decided to cover that with a stent so I did deploy 7 x 60 mm Zilver PTX drug coated stent where the stent was positioned under fluoroscopy guidance and deployed under fluoroscopy guidance as well then it was postdilated using 6 mm balloon. Subsequently, the following angiogram showed an area at the distal left popliteal appeared to be quite concerning for dissection. I did intravascular ultrasound, IVUS, on it and that should showed an area of dissection with a flow behind the dissection flap. I decided to cover that with a stent so I did deploy 7 x 120 mm Zilver PTX where the stent again was positioned under fluoroscopy guidance and deployed under fluoroscopy guidance. The following angiogram showed good angiographic results and the procedure was completed without any complication. POSTPROCEDURE MANAGEMENT: 1. Dual antiplatelet therapy. 2. Risk factors modification. 3. Follow up with the patient. ANTONIO / GENOVEVA: [id number] /
--- NOTE | 2018-01-09 13:55 | IR ---
EXAMINATION TYPE: IR stent intravas non coronary DATE OF EXAM: 01/09/2018 COMPARISON: NONE HISTORY: Peripheral vascular occlusive disease. Fluoroscopy was provided to the referring clinician. See dictated report from cardiology.
[2018-01-09 13:58] LABS: Glucose,Whole Blood 200 mg/dL (75-99)
[~2018-01-09 16:54] MED LIST changes: +ACETAMINOPHEN TAB 325 MG TAB PO PRN; +HEPARIN SODIUM 1,000 UN/ML (10ML VL) IV ONE; +IV FLUID CONTINUATION 950 ML IV ONE; +LIDOCAINE 1% INJ 10MG/ML (20 ML MDV) SQ ONE; +METOPROLOL TARTRATE 5 MG/5 ML VIAL IVP ONE; +MIDAZOLAM 2 MG/2 ML VIAL IV ONE; +ONDANSETRON 4 MG/2 ML VIAL IVP ONE; +SODIUM CHLORIDE 0.9% 1,000 ML IV SCH; +hydrALAZINE HCL 20 MG/ML 1 ML VIAL IV ONE
[2018-01-09 17:34] LABS: Glucose,Whole Blood 203 mg/dL (75-99)
[2018-01-09 21:09] VITALS: RESP 16
[2018-01-10] MEDS ORDERED: ACETAMINOPHEN TAB 325 MG TAB ONE (03:50)
[2018-01-10 06:21] LABS: Glucose,Whole Blood 317 mg/dL (75-99)
[2018-01-10] MEDS ORDERED: LEVOTHYROXINE 50 MCG TAB PO SCH (06:30)
[2018-01-10] MEDS ORDERED: INSULIN NPH/REG INSULIN 70/30 300 UNIT/3 ML VIAL SQ SCH (07:30)
[2018-01-10 08:15] LABS: Basophils % (A) 0 %; Eosinophils # (A) 0.1 k/uL (0-0.7); Eosinophils % (A) 2 %; HCT 37.8 % (39.0-53.0); HGB 12.1 gm/dL (13.0-17.5); Lymphocytes # (A) 0.8 k/uL (1.0-4.8); Lymphocytes % (A) 12 %; MCHC 32.2 g/dL (31.0-37.0); MCV 90.1 fL (80.0-100.0); Mean Platelet Volume 6.9; Monocytes # (A) 0.5 k/uL (0-1.0); Monocytes % (A) 8 %; Neutrophils # (A) 4.8 k/uL (1.3-7.7); Neutrophils % (A) 76 %; Platelet Count 121 k/uL (150-450); RBC 4.19 m/uL (4.30-5.90); RDW 15.4 % (11.5-15.5); WBC 6.3 k/uL (3.8-10.6)
[2018-01-10 08:25] LABS: Calcium 8.4 mg/dL (8.4-10.2); Potassium 3.9 mmol/L (3.5-5.1)
[2018-01-10 08:36] VITALS: BP 173/76; PULSE 77; TEMP 97.5
[2018-01-10] MEDS ORDERED: ATORVASTATIN 40 MG TAB PO SCH (09:00)
[2018-01-10] MEDS ORDERED: FUROSEMIDE 40 MG TAB PO SCH (09:00)
[2018-01-10] MEDS ORDERED: CLOPIDOGREL 75 MG TAB PO SCH (09:00)
[2018-01-10] MEDS ORDERED: HYDROCHLOROTHIAZIDE 25 MG TAB PO SCH (09:00)
[2018-01-10] MEDS ORDERED: ASPIRIN 81 MG PO SCH (09:00)
[2018-01-10] MEDS ORDERED: METOCLOPRAMIDE 10 MG TAB PO SCH (09:00)
--- NOTE | 2018-01-10 09:18 | DS ---
DISCHARGE SUMMARY ADMISSION DATE: 01/09/2018 DISCHARGE DATE: 01/10/2018 BRIEF HISTORY: This is a pleasant 83-year-old gentleman who was diagnosed with critical limb ischemia and nonhealing ulcers involving both feet. He underwent a peripheral angiogram a few weeks ago and that showed severe femoropopliteal disease on the left and severe below- the-knee disease on the right. He was admitted to the hospital yesterday and underwent successful angioplasty of the left fem pop with good angiographic results and without any complication with the procedure was performed from the right groin. The right groin is soft with very mild tenderness. On follow up with the patient today, he is doing good. The blood work is in process to be done. He is going to be discharged home on dual anti-platelet therapy and statin and I will follow up with the patient next week in the office. ANTONIO / GENOVEVA: [id number] /
== END 2018-01-10 10:01 | disposition home or self-care (01) ==
LOC: CATHCVL 16:54 → 6SEL 16:55 → CATHCVL 01-10 10:01
PROVIDERS: ATTEND Internal Medicine Interventional Cardiology
DX: I70.245 Atherosclerosis of native arteries of left leg with ulceration of other part of foot (principal); L97.529 Non-pressure chronic ulcer of other part of left foot with unspecified severity; I70.235 Atherosclerosis of native arteries of right leg with ulceration of other part of foot; L97.519 Non-pressure chronic ulcer of other part of right foot with unspecified severity; E11.621 Type 2 diabetes mellitus with foot ulcer; E11.51 Type 2 diabetes mellitus with diabetic peripheral angiopathy without gangrene; R60.0 Localized edema; Z89.421 Acquired absence of other right toe(s); Z95.820 Peripheral vascular angioplasty status with implants and grafts; Z95.0 Presence of cardiac pacemaker; I44.2 Atrioventricular block, complete; I10 Essential (primary) hypertension; E78.5 Hyperlipidemia, unspecified; Z79.02 Long term (current) use of antithrombotics/antiplatelets; Z79.82 Long term (current) use of aspirin; Z79.4 Long term (current) use of insulin; Z79.899 Other long term (current) drug therapy
CPT/HCPCS: 37227; 80048; 82565; 85025; C1769 ×5; C1894 ×3; C1725 ×2; C1714; C1753; C1884; C1874 ×2; C2623; J2250; J0360; J2405; J2001; J1644

== ENCOUNTER → 2018-01-28 | Outpatient (CLI) | payer MEDICARE ==
[2018-01-28 09:10] LABS: HCT 40.1 % (39.0-53.0); HGB 13.3 gm/dL (13.0-17.5); MCH 29.6 pg (25.0-35.0); MCHC 33.3 g/dL (31.0-37.0); MCV 88.9 fL (80.0-100.0); Mean Platelet Volume 7.4; Platelet Count 167 k/uL (150-450); RBC 4.51 m/uL (4.30-5.90); RDW 15.6 % (11.5-15.5); WBC 6.1 k/uL (3.8-10.6)
[2018-01-28 09:21] LABS: Potassium 3.6 mmol/L (3.5-5.1)
== END | disposition home or self-care (01) ==
LOC: LABPAT 08:42
PROVIDERS: ATTEND Internal Medicine Interventional Cardiology
DX: Z01.812 Encounter for preprocedural laboratory examination (principal); I10 Essential (primary) hypertension; I99.8 Other disorder of circulatory system; E78.5 Hyperlipidemia, unspecified
CPT/HCPCS: 36415; 80051; 82565; 84520; 85027

== ENCOUNTER 2018-02-11 07:35 | Day surgery (SDC) | payer MEDICARE ==
[2018-02-06 09:03] VITALS: BMI 28.8
[~2018-02-11 07:35] MED LIST changes: -ACETAMINOPHEN TAB 325 MG TAB PO PRN; +ASPIRIN 325 MG TAB PO STA; -HEPARIN SODIUM 1,000 UN/ML (10ML VL) IV ONE; -IV FLUID CONTINUATION 950 ML IV ONE; -LIDOCAINE 1% INJ 10MG/ML (20 ML MDV) SQ ONE; -METOPROLOL TARTRATE 5 MG/5 ML VIAL IVP ONE; -MIDAZOLAM 2 MG/2 ML VIAL IV ONE; -ONDANSETRON 4 MG/2 ML VIAL IVP ONE; -SODIUM CHLORIDE 0.9% 1,000 ML IV SCH; -SODIUM CHLORIDE 0.9% 1,000 ML in EMPTY BAG 1 BAG IV ONE; -hydrALAZINE HCL 20 MG/ML 1 ML VIAL IV ONE
[2018-02-11] MEDS ORDERED: SODIUM CHLORIDE 0.9% 1,000 ML in EMPTY BAG 1 BAG IV ONE (08:00)
[2018-02-11] MEDS ORDERED: ALPRAZolam 0.25 MG TAB PO PRN (08:00)
[2018-02-11] MEDS ORDERED: ZOLPIDEM 5 MG TAB PO PRN (08:00)
[2018-02-11 08:09] VITALS: RESP 18
[2018-02-11 08:33] LABS: Basophils % (A) 0 %; Eosinophils # (A) 0.3 k/uL (0-0.7); Eosinophils % (A) 4 %; HCT 42.8 % (39.0-53.0); HGB 14.4 gm/dL (13.0-17.5); Lymphocytes # (A) 1.7 k/uL (1.0-4.8); Lymphocytes % (A) 26 %; MCHC 33.5 g/dL (31.0-37.0); MCV 89.6 fL (80.0-100.0); Monocytes # (A) 0.6 k/uL (0-1.0); Monocytes % (A) 8 %; Neutrophils # (A) 4.1 k/uL (1.3-7.7); Neutrophils % (A) 60 %; Platelet Count 164 k/uL (150-450); RBC 4.78 m/uL (4.30-5.90); RDW 14.4 % (11.5-15.5); WBC 6.8 k/uL (3.8-10.6)
[2018-02-11 08:39] LABS: Glucose,Whole Blood 129 mg/dL (75-99)
[2018-02-11 08:41] LABS: Calcium 9.4 mg/dL (8.4-10.2); Potassium 3.4 mmol/L (3.5-5.1)
[2018-02-11] MEDS: MIDAZOLAM 2 MG/2 ML VIAL IVP ONE ×2 (09:25→10:09)
[2018-02-11] MEDS ORDERED: LIDOCAINE 2% INJ 20 MG/ML SQ ONE (09:25)
[2018-02-11] MEDS ORDERED: HEPARIN SODIUM 1,000 UN/ML (10ML VL) IV ONE (09:37)
[2018-02-11] MEDS ORDERED: fentaNYL (PF) 50 MCG/ML 2 ML AMP IVP ONE (10:22)
[2018-02-11] MEDS: NITROGLYCERIN 1000MCG/10ML SYRINGE INTRAARTER ONE ×2 (10:24→10:37)
[2018-02-11] MEDS: niCARdipine Syringe (1,000 mcg/10 mL) INTRAARTER ONE ×2 (10:24→10:37)
[2018-02-11] MEDS ORDERED: IOPAMIDOL-250 100ML BTL INTRAARTER ONE (10:53)
[2018-02-11] MEDS ORDERED: IOPAMIDOL-250 50ML BTL INTRAARTER ONE (10:53)
[2018-02-11] MEDS ORDERED: SODIUM CHLORIDE 0.9% 1,000 ML IV SCH (11:00)
[2018-02-11] MEDS ORDERED: CLOPIDOGREL 75 MG TAB PO ONE (11:08)
[2018-02-11 11:32] LABS: Glucose,Whole Blood 125 mg/dL (75-99)
--- NOTE | 2018-02-11 12:00 | PTCA ---
PERCUTANEOUSTRANS CORORONARY ANGIOGRAPHY DATE OF SERVICE: 02/11/2018 PERFORMING PHYSICIAN: Bebo Malone MD, Formulator. PROCEDURE PERFORMED: 1. Selective right [id number]-[id number] angiogram. 2. Selective right popliteal and right SFA angiogram. 3. Selective left common femoral artery angiogram. 4. An atherectomy of the right tibioperoneal trunk using the orbital atherectomy device from [employer] 5. Successful balloon angioplasty of the right tibioperoneal trunk using 4 mm x 40 mm DCB with excellent angiographic results. INDICATION: This is a pleasant 83-year-old gentleman who was diagnosed recently with critical limb ischemia. He does have history of peripheral arterial disease. He underwent a peripheral intervention of the left leg and was brought today to undergo an intervention of the right leg. The peripheral angiogram several weeks ago revealed occluded right tibioperoneal trunk. APPROACH: Left common femoral artery. COMPLICATION: None. LEVEL OF SEDATION: Moderate with sedation length of 80 minutes. PROCEDURE DESCRIPTION: After obtaining an informed consent, the patient was brought to the cardiac label sewer. The left common femoral artery was cannulated using micropuncture technique and the micropuncture wire passed easily. Then I placed a 6-Bangladeshi sheath in the left common femoral artery. After that, anticoagulation was initiated using heparin and the patient was given a total of 8000 units of heparin with continuous ACT monitoring throughout the procedure. I did select the right SFA using a 5-Bangladeshi Rim catheter with 0.35 Advantage wire. Subsequently I did exchange my 11 cm 6-Bangladeshi sheath into 70 cm 6-Bangladeshi Raabe sheath using the Advantage wire. The tip of the sheath was positioned in the right common femoral artery. After that, I did selective right bxcrj-pke-[id number] angiogram, selective right popliteal and SFA angiogram and selective left common femoral artery angiogram. After that, I did cross the chronic total occlusion of the right tibioperoneal trunk using a 14 wire. After that I did atherectomy after I did exchange my wire into a 14 Viper Wire where I did perform the atherectomy using the orbital atherectomy device from [employer]. Then I did balloon angioplasty using initially 4.0 chocolate balloon and subsequently 4.0 drug-coated balloon. The following angiogram showed excellent angiographic results with reduction of stenosis from 100% to 0%. No complication reported. Excellent flow at the right foot level was achieved. After that, I did exchange my 70 cm 6-Bangladeshi sheath into 11 cm 6-Bangladeshi sheath using the 0.35 Advantage wire and the procedure was completed without any complication. POSTPROCEDURE MANAGEMENT: 1. Dual anti-platelet therapy. 2. Risk factors modifications. 3. Follow up with the patient. ANTONIO / GENOVEVA: [id number] /
--- NOTE | 2018-02-11 12:15 | LTR ---
DATE OF SERVICE: February 11, 2018 RE: Jeb Calderón Dear Dr. Ferrera; Mr. Jeb Calderón underwent successful angioplasty of the right tibioperoneal trunk with reduction of stenosis from 100% to 0% without any complication. Thank you for allowing us to participate in his care and please do not hesitate to call if you have any question or concern. Sincerely, MD ANTONIO Crews / RAVENN: [id number] /
[2018-02-11] MEDS: ACETAMINOPHEN TAB 325 MG TAB PO PRN ×2 (15:10→21:08)
[2018-02-11] MEDS ORDERED: ATROPINE SULFATE 0.1 MG/ML 10ML SYRINGE ONE (15:38)
[2018-02-11] MEDS ORDERED: amLODIPine 5 MG TAB PO STA (15:51)
[2018-02-11 16:10] LABS: Glucose,Whole Blood 227 mg/dL (75-99)
[2018-02-11] MEDS ORDERED: ATORVASTATIN 40 MG TAB PO SCH (21:00)
[2018-02-11 21:16] LABS: Glucose,Whole Blood 352 mg/dL (75-99)
[2018-02-11] MEDS: INSULIN ASPART 100 UNIT/ML 1 ML 10 ML VIAL SQ SCH (21:35)
[2018-02-12 06:10] LABS: Glucose,Whole Blood 237 mg/dL (75-99)
[2018-02-12] MEDS: INSULIN ASPART 100 UNIT/ML 1 ML 10 ML VIAL SQ SCH (06:23)
[2018-02-12 06:54] LABS: Calcium 8.7 mg/dL (8.4-10.2)
[2018-02-12 07:06] LABS: Potassium 4.2 mmol/L (3.5-5.1)
[2018-02-12] MEDS ORDERED: INSULIN NPH/REG INSULIN 70/30 300 UNIT/3 ML VIAL SQ SCH (07:30)
[2018-02-12 08:12] VITALS: BP 153/69; PULSE 61; TEMP 97.8
[2018-02-12] MEDS ORDERED: ACETAMINOPHEN TAB 325 MG TAB PO PRN (09:11)
[2018-02-12] MEDS ORDERED: LEVOTHYROXINE 50 MCG TAB PO SCH (09:13)
[2018-02-12] MEDS ORDERED: CLOPIDOGREL 75 MG TAB PO SCH (09:15)
[2018-02-12] MEDS ORDERED: METOCLOPRAMIDE 10 MG TAB PO SCH (09:15)
[2018-02-12] MEDS ORDERED: HYDROCHLOROTHIAZIDE 25 MG TAB PO SCH (09:15)
[2018-02-12] MEDS ORDERED: FUROSEMIDE 40 MG TAB PO SCH (09:15)
--- NOTE | 2018-02-12 09:26 | DS ---
DISCHARGE SUMMARY ADMISSION DATE: February 11, 2018. DISCHARGE DATE: February 12, 2018 BRIEF HISTORY: This is a pleasant 83-year-old gentleman with history of peripheral arterial disease who was experiencing evidence of critical limb ischemia. He underwent a peripheral angiogram recently and that revealed severe left SFA disease and occluded right tibioperoneal trunk. He underwent peripheral intervention of the left SFA a few weeks ago and he was brought today to undergo a NET PROGRAMMER ANALYST of the right tibioperoneal trunk. The patient underwent successful atherectomy and balloon angioplasty of the right tibioperoneal trunk with excellent angiographic results and without any complication. The patient is going to be discharged home on dual anti-platelet therapy and I will follow up with the patient in the office as an outpatient. MMODL / IJN: [id number] /
--- NOTE | 2018-02-12 10:46 | IR ---
Fluoroscopy HISTORY: Nonhealing foot wound 24.2 minutes fluoroscopy time supplied to the referring clinician. 602 intraoperative C-arm images d ocument the procedure. See dictated report from cardiology.
== END 2018-02-12 10:16 | disposition home or self-care (01) ==
LOC: CATHCVL 07:35 → 6SEL 10:48 → CATHCVL 02-12 10:16
PROVIDERS: ATTEND Internal Medicine Interventional Cardiology
DX: I99.8 Other disorder of circulatory system (principal); Z95.820 Peripheral vascular angioplasty status with implants and grafts; I10 Essential (primary) hypertension; E78.5 Hyperlipidemia, unspecified; E11.9 Type 2 diabetes mellitus without complications; Z95.0 Presence of cardiac pacemaker; Z79.02 Long term (current) use of antithrombotics/antiplatelets; Z79.82 Long term (current) use of aspirin; Z79.4 Long term (current) use of insulin; Z79.899 Other long term (current) drug therapy
CPT/HCPCS: 37229; 85347; 80048 ×2; 85025; C1894 ×2; C1714; C1769 ×5; C1887; C1725; J2001; J2250; J3010; J1644; Q9966 ×2

== ENCOUNTER 2019-04-21 20:33 | Inpatient (IN) | payer MEDICARE ==
[2019-04-21] MEDS ORDERED: MORPHINE SULFATE 4 MG/ML SYRINGE IV STA (20:55)
[2019-04-21] MEDS ORDERED: SODIUM CHLORIDE 0.9% 1,000 ML IV STA ×2 (20:55→22:11)
--- NOTE | 2019-04-21 21:00 | ED ---
Weakness HPI - General Stated complaint: hypothermia Time Seen by Provider: 04/21/19 20:35 Source: RN notes reviewed, old records reviewed Limitations: no limitations, altered mental status - History of Present Illness Initial comments: This is an 84-year-old male the ER for evaluation. Patient was found wandering take doors down from his house his x-ray was not found at his house by his family. Has never done this before. Patient was found without his walker tried to climb up some embankment. He has scrapes to his arms and knees and elbows. Some tremors noted. Patient was acting appropriate up until this event. Patient denying any complaints currently. History obtained from EMS and darrele suzan's son who is at bedside MD Complaint: generalized weakness, difficulty walking -: days(s) Location: generalized Severity: moderate Severity scale (1-10): 4 Quality: tingling Consistency: constant Improves with: none Worsens with: none Context: trauma/injury Associated Symptoms: confusion, fever/chills, loss of appetite - Related Data Home Medications Medication Instructions Recorded Confirmed Atorvastatin [Lipitor] 40 mg PO DAILY 04/21/16 04/21/19 Metoclopramide [Reglan] 10 mg PO DAILY 01/03/17 04/21/19 Insulin NPH Hum/Reg Insulin Hm See Protocol SQ AC-TID 09/28/17 04/21/19 [NovoLIN 70-30 100 UNIT/ML VIAL] Aspirin [Adult Low Dose Aspirin EC] 81 mg PO DAILY 11/15/17 04/21/19 Furosemide [Lasix] 40 mg PO DAILY 11/15/17 04/21/19 Losartan Potassium 50 mg PO DAILY 04/21/19 04/21/19 Metoprolol Tartrate [Lopressor] 12.5 mg PO BID 04/21/19 04/21/19 Multivitamins, Thera [Multivitamin 1 tab PO DAILY 04/21/19 04/21/19 (formulary)] Warfarin [Coumadin] 5 mg PO DAILY 04/21/19 04/21/19 Previous Rx's Medication Instructions Recorded Hydrochlorothiazide [Hydrodiuril] 25 mg PO DAILY tab 11/27/17 Allergies Allergy/AdvReac Type Severity Reaction Status Date / Time No Known Allergies Allergy Verified 04/21/19 20:54 Review of Systems ROS Statement: Those systems with pertinent positive or pertinent negative responses have been documented in the HPI. ROS Other: All systems not noted in ROS Statement are negative. Past Medical History Past Medical History: Coronary Artery Disease (CAD), Diabetes Mellitus, Hyperlipidemia, Hypertension, Osteoarthritis (OA), Prostate Disorder, Skin Disorder, Sleep Apnea/CPAP/BIPAP, Vascular Disorder Additional Past Medical History / Comment(s): varicose veins, poor circulation malinda legs, uses walker or cane, hx kidney failure-improved now, no cpap used, dry skin, hemorrhoids, History of Any Multi-Drug Resistant Organisms: None Reported Past Surgical History: Hernia Repair, Joint Replacement, Orthopedic Surgery Additional Past Surgical History / Comment(s): Rt hip replacement, malinda cataract surgery, Screw in L hip (fx). Abdominal Aortoram and Bilat. Lower Ext., stent in left leg. 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 oral surgery Past Anesthesia/Blood Transfusion Reactions: No Reported Reaction Type of Cardiac Device: Permanent Pacemaker Device Placement Date:: 11/26/17 Past Psychological History: Anxiety Smoking Status: Never smoker Past Alcohol Use History: None Reported Past Drug Use History: None Reported - Past Family History Father History Unknown: Yes Family Medical History: Thyroid Disorder Additional Family Medical History / Comment(s): AFTER A GOITER surgery. Mother History Unknown: Yes Additional Family Medical History / Comment(s): IN A MVA Sister(s) Family Medical History: Cancer General Exam General appearance: alert, in no apparent distress Head exam: Present: atraumatic, normocephalic, normal inspection Eye exam: Present: normal appearance, PERRL, EOMI. Absent: scleral icterus, conjunctival injection, periorbital swelling ENT exam: Present: normal exam, mucous membranes moist Neck exam: Present: normal inspection. Absent: tenderness, meningismus, lymphadenopathy Respiratory exam: Present: normal lung sounds bilaterally. Absent: respiratory distress, wheezes, rales, rhonchi, stridor Cardiovascular Exam: Present: regular rate, normal rhythm, normal heart sounds. Absent: systolic murmur, diastolic murmur, rubs, gallop, clicks GI/Abdominal exam: Present: soft, normal bowel sounds. Absent: distended, tende rness, guarding, rebound, rigid Extremities exam: Present: normal inspection, full ROM, normal capillary refill. Absent: tenderness, pedal edema, joint swelling, calf tenderness Back exam: Present: normal inspection Neurological exam: Present: alert, oriented X3, CN II-XII intact Psychiatric exam: Present: normal affect, normal mood Skin exam: Present: warm, dry, intact, normal color. Absent: rash Course Vital Signs 04/21/19 04/21/19 20:35 23:20 Temperature 97.3 F L 97.4 F L Pulse Rate 69 70 Respiratory 18 18 Rate Blood Pressure 120/66 106/68 O2 Sat by Pulse 98 99 Oximetry - Reevaluation(s) Reevaluation #1: 04/21/19 22:13 Medical records reviewed Reevaluation #2: 04/21/19 22:13 Patient given adequate hydration and ER - Consultations Consultation #1: spoke w SOund Dr valdes and Dr johnston for admission and are agreeable Medical Decision Making - Medical Decision Making 84 male to the ED, weakness, AMS, dehydration, prolonged time in the elements, likely hypothermia. - Lab Data Result diagrams: 04/21/19 21:09 04/21/19 21:09 Lab Results 04/21/19 04/21/19 04/21/19 Range/Units 21:09 21:09 21:09 WBC 26.4 H (3.8-10.6) k/uL RBC 4.70 (4.30-5.90) m/uL Hgb 14.2 (13.0-17.5) gm/dL Hct 43.4 (39.0-53.0) % MCV 92.3 (80.0-100.0) fL MCH 30.2 (25.0-35.0) pg MCHC 32.8 (31.0-37.0) g/dL RDW 13.1 (11.5-15.5) % Plt Count 187 (150-450) k/uL Neutrophils % 90 % Lymphocytes % 4 % Monocytes % 5 % Eosinophils % 0 % Basophils % 0 % Neutrophils # 23.8 H (1.3-7.7) k/uL Lymphocytes # 1.1 (1.0-4.8) k/uL Monocytes # 1.3 H (0-1.0) k/uL Eosinophils # 0.1 (0-0.7) k/uL Basophils # 0.0 (0-0.2) k/uL PT (9.0-12.0) sec INR (<1.2) APTT (22.0-30.0) sec Sodium 136 L (137-145) mmol/L Potassium 3.9 (3.5-5.1) mmol/L Chloride 91 L (98-107) mmol/L Carbon Dioxide 18 L (22-30) mmol/L Anion Gap 27 mmol/L BUN 94 H (9-20) mg/dL Creatinine 3.71 H (0.66-1.25) mg/dL Est GFR (CKD-EPI)AfAm 16 (>60 ml/min/1.73 sqM) Est GFR (CKD-EPI)NonAf 14 (>60 ml/min/1.73 sqM) Glucose 377 H (74-99) mg/dL Plasma Lactic Acid Gilbert (0.7-2.0) mmol/L Calcium 9.4 (8.4-10.2) mg/dL Total Bilirubin 1.0 (0.2-1.3) mg/dL AST 49 (17-59) U/L ALT 35 (21-72) U/L Alkaline Phosphatase 144 H (38-126) U/L Total Creatine Kinase 469 H (55-170) U/L CK-MB (CK-2) 3.1 H (0.0-2.4) ng/mL CK-MB (CK-2) Rel Index 0.7 Troponin I 0.141 H* (0.000-0.034) ng/mL Total Protein 6.6 (6.3-8.2) g/dL Albumin 4.1 (3.5-5.0) g/dL Amylase 75 (30-110) U/L Lipase 184 (23-300) U/L Serum Alcohol <10 mg/dL Blood Type Blood Type Recheck Bld Type Recheck Status Antibody Screen Spec Expiration Date 04/21/19 04/21/19 04/21/19 Range/Units 21:09 21:09 21:09 WBC (3.8-10.6) k/uL RBC (4.30-5.90) m/uL Hgb (13.0-17.5) gm/dL Hct (39.0-53.0) % MCV (80.0-100.0) fL MCH (25.0-35.0) pg MCHC (31.0-37.0) g/dL RDW (11.5-15.5) % Plt Count (150-450) k/uL Neutrophils % % Lymphocytes % % Monocytes % % Eosinophils % % Basophils % % Neutrophils # (1.3-7.7) k/uL Lymphocytes # (1.0-4.8) k/uL Monocytes # (0-1.0) k/uL Eosinophils # (0-0.7) k/uL Basophils # (0-0.2) k/uL PT 29.0 H (9.0-12.0) sec INR 3.0 H (<1.2) APTT 28.3 (22.0-30.0) sec Sodium (137-145) mmol/L Potassium (3.5-5.1) mmol/L Chloride (98-107) mmol/L Carbon Dioxide (22-30) mmol/L Anion Gap mmol/L BUN (9-20) mg/dL Creatinine (0.66-1.25) mg/dL Est GFR (CKD-EPI)AfAm (>60 ml/min/1.73 sqM) Est GFR (CKD-EPI)NonAf (>60 ml/min/1.73 sqM) Glucose (74-99) mg/dL Plasma Lactic Acid Gilbert 14.5 H* (0.7-2.0) mmol/L Calcium (8.4-10.2) mg/dL Total Bilirubin (0.2-1.3) mg/dL AST (17-59) U/L ALT (21-72) U/L Alkaline Phosphatase (38-126) U/L Total Creatine Kinase (55-170) U/L CK-MB (CK-2) (0.0-2.4) ng/mL CK-MB (CK-2) Rel Index Troponin I (0.000-0.034) ng/mL Total Protein (6.3-8.2) g/dL Albumin (3.5-5.0) g/dL Amylase (30-110) U/L Lipase (23-300) U/L Serum Alcohol mg/dL Blood Type A Positive Blood Type Recheck A Pos Bld Type Recheck Status No Antibody Screen NEGATIVE Spec Expiration Date 04/24/2019 - 8644 - Radiology Data Radiology results: report reviewed (CT brain C spine, CXR XR elbow / knees, negative for traumatic injury), image reviewed Critical Care Time Critical Care Time: Yes Total Critical Care Time: 31 Disposition Clinical Impression: Dehydration, Sepsis, Lactic acidosis, Weakness, Altered mental state, Fall, Hypothermia Disposition: ADMITTED IP TO THIS HOSP Condition: Critical Is patient prescribed a controlled substance at d/c from ED?: No
--- NOTE | 2019-04-21 21:10 | XR ---
EXAMINATION TYPE: XR pelvis AP view DATE OF EXAM: 04/21/2019 CLINICAL HISTORY: Pain after fall injury. TECHNIQUE: A single AP view of the pelvis is obtained. COMPARISON: Pelvic x-ray April 21, 2016. FINDINGS: Osseous structures are demineralized. There is no new acute fracture/dislocation evident in the pelvis. Metallic hardware from right hip arthroplasty redemonstrated. Position stable. Surgical change through healed fracture deformity left proximal femur now present. Asymmetric right sacroiliac joint narrowing and sclerosis. Bilateral groin vascular calcification. IMPRESSION: There is no acute fracture or dislocation in the pelvis.
--- NOTE | 2019-04-21 21:11 | XR ---
EXAMINATION TYPE: XR chest 1V portable DATE OF EXAM: 04/21/2019 COMPARISON: Chest x-ray November 27, 2017 HISTORY: Pain after fall injury. TECHNIQUE: Single AP portable frontal upright view of the chest is obtained. FINDINGS: There is no focal air space opacity, pleural effusion, or pneumothorax seen. The cardiac silhouette size is enlarged with dual lead pacemaker redemonstrated. The osseous structures are int act. IMPRESSION: Cardiomegaly without acute pulmonary process.
[2019-04-21 21:25] LABS: Basophils % (A) 0 %; Eosinophils # (A) 0.1 k/uL (0-0.7); Eosinophils % (A) 0 %; HCT 43.4 % (39.0-53.0); HGB 14.2 gm/dL (13.0-17.5); Lymphocytes # (A) 1.1 k/uL (1.0-4.8); Lymphocytes % (A) 4 %; MCH 30.2 pg (25.0-35.0); MCHC 32.8 g/dL (31.0-37.0); MCV 92.3 fL (80.0-100.0); Mean Platelet Volume 7.5; Monocytes # (A) 1.3 k/uL (0-1.0); Monocytes % (A) 5 %; Neutrophils # (A) 23.8 k/uL (1.3-7.7); Neutrophils % (A) 90 %; Platelet Count 187 k/uL (150-450); RDW 13.1 % (11.5-15.5); WBC 26.4 k/uL (3.8-10.6)
--- NOTE | 2019-04-21 21:25 | CT ---
EXAMINATION TYPE: CT brain fan yarbrough DATE OF EXAM: 04/21/2019 COMPARISON: NONE HISTORY: Fall injury with confusion. Neck pain. CT DLP: 1393.3 mGycm. Automated Exposure Control for Dose Reduction was Utilized. TECHNIQUE: CT scan of the head and cervical spine are performed without contrast. FINDINGS: There is no acute intracranial hemorrhage or midline shift identified. Ventricles and sul ci are prominent. The calvarium is intact. The globes are intact and the visualized sinuses are clear . Cervical spine is visualized in its entirety from C1 through upper thoracic levels and demonstrates s traightened alignment without evidence of acute fracture or dislocation. Prevertebral soft tissue ap pears within normal limits. The C1-C2 articulation is within normal limits on the coronal images. V ertebral body heights are maintained. Moderate disc space narrowing C4-C5 through the C6-C7 levels wi th mild to moderate multilevel anterior spurring. Posterior disc herniations and spur disc complexes efface the anterior thecal sac at these levels. Axial images show multilevel uncovertebral facet dege nerative changes contributing to multilevel bilateral neural foraminal narrowing. Moderate vascular c onsultation bilateral carotid bulb level. Partial visualization of left sided pacemaker wires. IMPRESSION: 1. There is no acute fracture or dislocation evident in the cervical spine. 2. No acute intracranial hemorrhage or midline shift is seen.
[2019-04-21 21:30] LABS: Partial Thromboplastin Time 28.3 sec (22.0-30.0)
[2019-04-21 21:37] LABS: ALT 35 U/L (21-72); AST 49 U/L (17-59); African American GFR (CKD) 16 (>60 ml/min/1.73 sqM); Albumin 4.1 g/dL (3.5-5.0); Alcohol <10 mg/dL; Alkaline Phosphatase 144 U/L (38-126); Amylase 75 U/L (30-110); Anion Gap 27 mmol/L; Blood Urea Nitrogen 94 mg/dL (9-20); Calcium 9.4 mg/dL (8.4-10.2); Carbon Dioxide 18 mmol/L (22-30); Chloride 91 mmol/L (98-107); Glucose 377 mg/dL (74-99); Potassium 3.9 mmol/L (3.5-5.1); Sodium 136 mmol/L (137-145); Total Protein 6.6 g/dL (6.3-8.2)
[2019-04-21 21:47] LABS: Creatine Kinase MB 3.1 ng/mL (0.0-2.4)
[2019-04-21 21:57] LABS: Troponin I 0.141 ng/mL (0.000-0.034)
--- NOTE | 2019-04-21 22:04 | XR ---
EXAMINATION TYPE: XR elbow complete bilateral DATE OF EXAM: 04/21/2019 CLINICAL HISTORY: Bilateral pain after fall injury. TECHNIQUE: Frontal, lateral and oblique images of the bilateral elbows are obtained. COMPARISON: None FINDINGS: Suboptimal study due to incomplete extension. There is no acute fracture/dislocation evide nt in either elbow. No abnormal fat pad signs are seen bilaterally. The overlying soft tissue shows partial visualization of blanket or clothing material and peripheral IV on the left. IMPRESSION: There is no acute fracture or dislocation in either elbow.
[2019-04-21] MEDS ORDERED: SODIUM CHLORIDE 0.9% 500 ML 500 ML IV STA (22:11)
--- NOTE | 2019-04-21 22:12 | XR ---
EXAMINATION TYPE: XR knee complete bilateral DATE OF EXAM: 04/21/2019 COMPARISON: NONE HISTORY: Bilateral knee pain TECHNIQUE: 3 views each knee FINDINGS: There are bilateral arterial stents in the distal femoral and popliteal arteries. I see no fracture nor dislocation. Joint spaces are fairly normal. There is atherosclerotic vascular calcifica tion. There is no sign of joint effusion. There is spurring on the right side superior patella. IMPRESSION: Minor spurring. Atherosclerotic vascular disease. No fracture seen. Joint spaces appear n ormal for age.
[2019-04-21] MEDS ORDERED: IPRATROPIUM-ALBUTEROL 3 ML NEB INHALATION PRN (22:46)
[2019-04-21] MEDS ORDERED: NALOXONE 0.4 MG/ML 1 ML VIAL IV PRN (22:46)
[2019-04-21] MEDS ORDERED: SODIUM CHLORIDE 0.9% 500 ML 500 ML IV SCH (23:00)
[2019-04-21] MEDS ORDERED: DEXTROSE 5%-0.45% NACL 1,000 ML IV SCH (23:00)
[2019-04-21 23:27] LABS: Glucose,Whole Blood 349 mg/dL (75-99)
[2019-04-21 23:51] LABS: Appearance,Urine Clear (Clear); Bacteria,Urine Rare /hpf; Bilirubin,Urine Negative (Negative); Blood,Urine Small (Negative); Color,Urine Yellow; Glucose,Urine (UA) 1+ (Negative); Hyaline Casts,Urine 112 /lpf (0-2); Ketones,Urine Trace (Negative); Leukocyte Esterase,Urine Negative (Negative); Mucus,Urine Occasional /hpf; Nitrite,Urine Negative (Negative); Protein,Urine Trace (Negative); RBC,Urine <1 /hpf (0-5); Specific Gravity,Urine 1.011 (1.001-1.035); Squamous Epithelial Cell,Urine <1 /hpf (0-4); Urobilinogen,Urine <2.0 mg/dL (<2.0)
--- NOTE | 2019-04-22 00:29 | P.HPIM ---
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 The history is supplemented by patient's son at the bedside (Seun Calderón, HCP). The son notes t hat he last saw his father at home at 7 am when he went to work. Normally, the patient stays in the house and is independent in most ADLs. Upon returning home from work at 7 pm, the son couldn't find the patient inside the house, at which time he activated EMS. Upon searching for 30 minutes, they found the patient down a 15 foot hill near the house, on the ground, confused, with scraps and bruises, wearing a hoodie and sweatpants. The patient states that he was trying to go out to enjoy the weather when he began climbing stairs heading down the [place]ank when he stopped and sat down to catch a breath but couldn't get back up. He does not recall having a fall and is unclear of all the events of the day. The son reports that this is highly unusual for his father. The patient normally stays at home and is able to manage things well (including self-administration of insulin). He did notice that the patient's appetite had been poorer than usual over the past 1 month though he still continued to drink fluids very well. At time of the interview, the patient reported feeling cold with shaking chills. He endorsed some mild lower back pain but denied any additional complaints. The patient thinks he may have gone out of the house at around 2 pm, and he was found by EMS around 8 pm. Upon presentation, the patient's rectal temperature was 97.3, with BP 120/66, pulse 69, and saturating 98% on 2 L of nasal cannula. Laboratory evaluation revealed a lactic acid significantly elevated at 14.5, troponin 0.141, creatinine kinase 469, BUN 94 (baseline 40), Cr 3.71 (baseline 1.8) and WBC count was 26.4. UA revealed hyalin casts with no WBCs. Pelvis, elbow, and knee x-rays were all negative for fractures with head CT unremarkable. The patient is being admitted to the medicine service for further management. Review of Systems Pertinent positives and negatives as discussed in HPI, a complete review of systems was performed and all other systems are negative. Past Medical History Past Medical History: Coronary Artery Disease (CAD), Diabetes Mellitus, Hyperlipidemia, Hypertension, Osteoarthritis (OA), Prostate Disorder, Skin Disorder, Sleep Apnea/CPAP/BIPAP, Vascular Disorder Additional Past Medical History / Comment(s): varicose veins, poor circulation malinda legs, uses walker or cane, hx kidney failure-improved now, no cpap used, dry skin, hemorrhoids, History of Any Multi-Drug Resistant Organisms: None Reported Past Surgical History: Hernia Repair, Joint Replacement, Orthopedic Surgery Additional Past Surgical History / Comment(s): Rt hip replacement, malinda cataract surgery, Screw in L hip (fx). Abdominal Aortoram and Bilat. Lower Ext., stent in left leg. 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 oral surgery Past Anesthesia/Blood Transfusion Reactions: No Reported Reaction Type of Cardiac Device: Permanent Pacemaker Device Placement Date:: 11/26/17 Past Psychological History: Anxiety Smoking Status: Never smoker Past Alcohol Use History: None Reported Past Drug Use History: None Reported - Past Family History Father History Unknown: Yes Family Medical History: Thyroid Disorder Additional Family Medical History / Comment(s): AFTER A GOITER surgery. Mother History Unknown: Yes Additional Family Medical History / Comment(s): IN A MVA Sister(s) Family Medical History: Cancer Medications and Allergies Home Medications Medication Instructions Recorded Confirmed Type Atorvastatin [Lipitor] 40 mg PO DAILY 04/21/16 04/21/19 History Metoclopramide [Reglan] 10 mg PO DAILY 01/03/17 04/21/19 History Insulin NPH Hum/Reg Insulin Hm See Protocol SQ AC-TID 09/28/17 04/21/19 History [NovoLIN 70-30 100 UNIT/ML VIAL] Aspirin [Adult Low Dose Aspirin EC] 81 mg PO DAILY 11/15/17 04/21/19 History Furosemide [Lasix] 40 mg PO DAILY 11/15/17 04/21/19 History Hydrochlorothiazide [Hydrodiuril] 25 mg PO DAILY tab 11/27/17 04/21/19 Rx Losartan Potassium 50 mg PO DAILY 04/21/19 04/21/19 History Metoprolol Tartrate [Lopressor] 12.5 mg PO BID 04/21/19 04/21/19 History Multivitamins, Thera [Multivitamin 1 tab PO DAILY 04/21/19 04/21/19 History (formulary)] Warfarin [Coumadin] 5 mg PO DAILY 04/21/19 04/21/19 History Allergies Allergy/AdvReac Type Severity Reaction Status Date / Time No Known Allergies Allergy Verified 04/21/19 20:54 Physical Exam Vitals: Vital Signs Temp Pulse Resp BP Pulse Ox 04/21/19 23:20 97.4 F L 70 18 106/68 99 04/21/19 20:35 97.3 F L 69 18 120/66 98 Intake and Output 04/21/19 04/21/19 04/22/19 14:59 22:59 06:59 Other: Weight 84.6 kg General: non toxic, no distress, appears at stated age Derm: abrasions over malinda elbows, knees, and feet, warm, dry Head: atraumatic, normocephalic, symmetric Eyes: EOMI, no lid lag, anicteric sclera, pupils equal round reactive to light ENT: Nose and ears atraumatic, no thrush, no pharyngeal erythema Neck: No thyromegaly, no cervical lymphadenopathy, trachea midline, supple Mouth: no lip lesion, mucus membranes moist Cardiovascular: S1S2 reg, no murmur, positive posterior tibial pulse bilateral, no edema, capillary refill less than 2 seconds Lungs: CTA bilateral, no rhonchi, no rales , no accessory muscle use Abdominal: soft, nontender to palpation, no guarding, no appreciable organomegaly, normal bowel sounds Ext: no gross muscle atrophy, muscle strength 5 out of 5 in all 4 extremities grossly, no contractures, Neuro: CN II-XI grossly intact, light touch intact all 4 extremities, finger to nose within normal limits, Psych: Alert, oriented, appropriate affect Results CBC & Chem 7: 04/21/19 21:09 04/21/19 21:09 Labs: Abnormal Lab Results - Last 24 Hours (Table) 04/21/19 04/21/19 04/21/19 Range/Units 21:09 21:09 21:09 WBC 26.4 H (3.8-10.6) k/uL Neutrophils # 23.8 H (1.3-7.7) k/uL Monocytes # 1.3 H (0-1.0) k/uL PT (9.0-12.0) sec INR (<1.2) Sodium 136 L (137-145) mmol/L Chloride 91 L (98-107) mmol/L Carbon Dioxide 18 L (22-30) mmol/L BUN 94 H (9-20) mg/dL Creatinine 3.71 H (0.66-1.25) mg/dL Glucose 377 H (74-99) mg/dL POC Glucose (mg/dL) (75-99) mg/dL Plasma Lactic Acid Gilbert (0.7-2.0) mmol/L Alkaline Phosphatase 144 H (38-126) U/L Total Creatine Kinase 469 H (55-170) U/L CK-MB (CK-2) 3.1 H (0.0-2.4) ng/mL Troponin I 0.141 H* (0.000-0.034) ng/mL 04/21/19 04/21/19 04/21/19 Range/Units 21:09 21:09 23:25 WBC (3.8-10.6) k/uL Neutrophils # (1.3-7.7) k/uL Monocytes # (0-1.0) k/uL PT 29.0 H (9.0-12.0) sec INR 3.0 H (<1.2) Sodium (137-145) mmol/L Chloride (98-107) mmol/L Carbon Dioxide (22-30) mmol/L BUN (9-20) mg/dL Creatinine (0.66-1.25) mg/dL Glucose (74-99) mg/dL POC Glucose (mg/dL) 349 H (75-99) mg/dL Plasma Lactic Acid Gilbert 14.5 H* (0.7-2.0) mmol/L Alkaline Phosphatase (38-126) U/L Total Creatine Kinase (55-170) U/L CK-MB (CK-2) (0.0-2.4) ng/mL Troponin I (0.000-0.034) ng/mL Assessment and Plan Plan: Hypothermia -C/w external cooling -Cardiac monitoring Lactic acidosis -C/w IVFs and monitor to resolution -Likely due to hypothermia RAYNE on CKD -C/w IVFs -Likely due hypothermia induced ATN -Monitor BMP Troponin elevation -Trend for now -Cardiac monitoring -Obtain EKG Leukocytosis -No active signs of infection at this time -Monitor CBC Afib -C/w Coumadin HTN, HLD -C/w home meds DVT prophylaxis -Coumadin The patient is admitted with an anticipated greater than 2 midnight stay for evaluation of hypothermia CODE STATUS: No Code Discussed with: Patient, Son Anticipated discharge date: 3-[address]: Home A total of 40 minutes was spent on the care of this complex patient more than 50% of the time was spent in counseling and care coordination.
[2019-04-22 00:57] LABS: Glucose,Whole Blood 326 mg/dL (75-99)
[2019-04-22 01:14] LABS: Amphetamine Screen,Urine Not Detected (NotDetected); Barbiturate Screen,Urine Not Detected (NotDetected); Benzodiazepines Screen,Urine Not Detected (NotDetected); Cocaine Screen,Urine Not Detected (NotDetected); Methadone Screen, Urine Not Detected (NotDetected); Opiate Screen,Urine Detected (NotDetected); Oxycodone Screen, Urine Not Detected (NotDetected); Phencyclidine Screen,Urine Not Detected (NotDetected); Tricyclic Antidepressant,Urine Not Detected (NotDetected); Urn Cannabinoid Scrn Not Detected (NotDetected)
[2019-04-22 01:23] VITALS: BMI 28.3
[2019-04-22] MEDS ORDERED: INSULIN ASPART (NovoLOG) 100 UNIT/ML VIAL SQ ONE (01:53)
[2019-04-22 04:43] LABS: Basophils % (A) 0 %; Eosinophils % (A) 0 %; HCT 40.2 % (39.0-53.0); Lymphocytes # (A) 0.9 k/uL (1.0-4.8); Lymphocytes % (A) 5 %; MCH 31.6 pg (25.0-35.0); MCHC 34.8 g/dL (31.0-37.0); MCV 90.9 fL (80.0-100.0); Mean Platelet Volume 6.9; Monocytes # (A) 0.8 k/uL (0-1.0); Monocytes % (A) 5 %; Neutrophils # (A) 15.7 k/uL (1.3-7.7); Neutrophils % (A) 89 %; Platelet Count 109 k/uL (150-450); RBC 4.43 m/uL (4.30-5.90); RDW 13.2 % (11.5-15.5); WBC 17.7 k/uL (3.8-10.6)
[2019-04-22 04:56] LABS: Albumin 3.7 g/dL (3.5-5.0); Calcium 8.7 mg/dL (8.4-10.2); Potassium 3.2 mmol/L (3.5-5.1); Total Bilirubin 0.7 mg/dL (0.2-1.3); Total Protein 6.3 g/dL (6.3-8.2)
[2019-04-22 05:10] LABS: INR 2.5 (<1.2); Prothrombin Time 24.2 sec (9.0-12.0)
[2019-04-22] MEDS ORDERED: Potassium Replacement Protocol 1 EACH MISC MISCELLANE PRN (05:20)
[2019-04-22] MEDS: POTASSIUM CHLORIDE ER 20 MEQ TAB.ER PO SCH ×2 (05:29→06:45)
[2019-04-22] MEDS: INSULIN ASPART (NovoLOG) 100 UNIT/ML VIAL SQ SCH ×4 (06:45→20:34)
[2019-04-22 06:53] LABS: Glucose,Whole Blood 238 mg/dL (75-99)
--- NOTE | 2019-04-22 08:19 | P.CNPUL ---
History of Present Illness Consult date: 04/22/19 Chief complaint: Altered mental status History of present illness: This is an 84-year-old male patient who was brought into the hospital yesterday because of an altered mentation. The patient was found wondering outside the house. Normally the patient stays in the house and he is independent. When the family came home, the patient was noted to be found. Upon looking around the patient [place] he was found to be confused with scabs and bruises wearing it with he and his sweat pants. The patient does not recall the circumstances that led him to go there. It is unusual for him according to the family. The patient was called. Upon presentation his rectal temperature was 97.3. He has stable vital signs. His lactic acid level was 14.5. His CPK was 469. Urine was 94 with a creatinine of 3.7 with a baseline creatinine of 1.8. His white cell count was 26.4. UA was negative. Series of imaging was done including a CAT scan of the brain that was unremarkable. X-ray of the knees elbows and pelvis were also unremarkable. The patient was started on IV fluids. He was given a total of 2.5 L in the emergency and he was transferred to the ICU where he was placed on a maintenance fluid of 100 mL an hour. This morning his white cell count is down to 17.7. His INR is down to 2.5. His creatinine is down to 3.05 from 3.7. BUN is still at 94. The lactic acid level has normalized and is down to 2.0 from a baseline of 14.5. Urine drug screen was positive for opiates. The UA was positive for casts and some trace glucose. Otherwise negative. The troponin initially was 0.141. Follow-up levels are still pending. His EKG showing a paced rhythm at the rate of 70. His ventricular pacing. The patient has received IV Rocephin 1 g every 24 hours as an empiric antibiotic coverage. This is in conjunction with the fluids pending further cultures The patient is known to have atrial fibrillation. The patient has also history of third-degree AV block and he has a pacemaker in place. Is diabetic and has hypertension and hyperlipidemia. He has been on long-term articulation with warfarin regarding his atrial fibrillation. He has peripheral vascular disease. He has also undergone a left hip ORIF for an intertrochanteric fracture. Review of Systems Constitutional: Reports fatigue, Reports weakness Eyes: bilateral decreased vision, denies blurred vision, denies bulging eye Ears: deny: decreased hearing, ear discharge, earache, tinnitus Ears, nose, mouth and throat: Denies headache, Denies sore throat Cardiovascular: Reports irregular heart beat Respiratory: Denies cough Gastrointestinal: Denies abdominal pain, Denies diarrhea, Denies nausea, Denies vomiting Genitourinary: Reports as per HPI Musculoskeletal: Reports as per HPI, Reports frequent falls Musculoskeletal: absent: ankle pain, ankle stiffness, ankle swelling Integumentary: Reports as per HPI (Areas of skin abrasions over the knees bilaterally related to fall.Superficial lacerated. He has also dry scaly skin in lower extremities bilaterally.) Neurological: Reports change in mentation, Reports confusion Psychiatric: Reports as per HPI Endocrine: Reports as per HPI Hematologic/Lymphatic: Reports as per HPI Allergic/Immunologic: Reports as per HPI Past Medical History Past Medical History: Coronary Artery Disease (CAD), Diabetes Mellitus, Hyperlipidemia, Hypertension, Osteoarthritis (OA), Prostate Disorder, Skin Disorder, Sleep Apnea/CPAP/BIPAP, Vascular Disorder Additional Past Medical History / Comment(s): CAD, diabetes, hyperlipidemia, BPH, peripheral vascular disease, chronic kidney disease stage III, hemorrhoids, varicose veins, osteoarthritis History of Any Multi-Drug Resistant Organisms: None Reported Past Surgical History: Hernia Repair, Joint Replacement, Orthopedic Surgery Additional Past Surgical History / Comment(s): Rt hip replacement, amlinda cataract surgery, Screw in L hip (fx). Abdominal Aortoram and Bilat. Lower Ext., stent in left leg. 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 oral surgery Past Anesthesia/Blood Transfusion Reactions: No Reported Reaction Type of Cardiac Device: Permanent Pacemaker Device Placement Date:: 11/26/17 Past Psychological History: Anxiety Smoking Status: Never smoker Past Alcohol Use History: None Reported Past Drug Use History: None Reported - Past Family History Father History Unknown: Yes Family Medical History: Thyroid Disorder Additional Family Medical History / Comment(s): AFTER A GOITER surgery. Mother History Unknown: Yes Additional Family Medical History / Comment(s): IN A MVA Sister(s) Family Medical History: Cancer Medications and Allergies Home Medications Medication Instructions Recorded Confirmed Type Atorvastatin [Lipitor] 40 mg PO DAILY 04/21/16 04/21/19 History Metoclopramide [Reglan] 10 mg PO DAILY 01/03/17 04/21/19 History Insulin NPH Hum/Reg Insulin Hm See Protocol SQ AC-TID 09/28/17 04/21/19 History [NovoLIN 70-30 100 UNIT/ML VIAL] Aspirin [Adult Low Dose Aspirin EC] 81 mg PO DAILY 11/15/17 04/21/19 History Furosemide [Lasix] 40 mg PO DAILY 11/15/17 04/21/19 History Hydrochlorothiazide [Hydrodiuril] 25 mg PO DAILY tab 11/27/17 04/21/19 Rx Losartan Potassium 50 mg PO DAILY 04/21/19 04/21/19 History Metoprolol Tartrate [Lopressor] 12.5 mg PO BID 04/21/19 04/21/19 History Multivitamins, Thera [Multivitamin 1 tab PO DAILY 04/21/19 04/21/19 History (formulary)] Warfarin [Coumadin] 5 mg PO DAILY 04/21/19 04/21/19 History Allergies Allergy/AdvReac Type Severity Reaction Status Date / Time No Known Allergies Allergy Verified 04/21/19 20:54 Physical Exam Vitals: Vital Signs Temp Pulse Resp BP Pulse Ox 04/22/19 07:00 70 14 116/51 99 04/22/19 06:00 70 14 112/51 99 04/22/19 05:00 70 16 100/59 99 04/22/19 04:00 97.4 F L 71 14 114/58 97 04/22/19 03:00 69 14 121/55 98 04/22/19 02:00 70 14 128/54 98 04/22/19 01:00 70 14 128/54 96 04/22/19 00:00 97.4 F L 69 12 138/54 98 04/21/19 23:20 97.4 F L 70 18 106/68 99 04/21/19 20:35 97.3 F L 69 18 120/66 98 Intake and Output 04/21/19 04/22/19 04/22/19 22:59 06:59 14:59 Intake Total 700 100 Output Total 665 80 Balance 35 20 Intake: IV 700 100 Sodium Chloride 0.9% 1, 700 100 000 ml @ 100 mls/hr IV . Q10H STA Rx#:[id number] Output: Urine 665 80 Other: Voiding Method Indwelling Catheter Weight 84.6 kg 85.5 kg The patient appeared well nourished and normally developed. Vital signs as documented. Head exam is unremarkable. No scleral icterus or corneal arcus noted. Neck is without jugular venous distension, thyromegaly, or carotid bruits. Carotid upstrokes are brisk bilaterally. Lungs are clear to auscultation and percussion. Cardiac exam reveals the PMI to be normally sized and situated. Rhythm is regular. First and second heart sounds normal. No murmurs, rubs or gallops. The patient has a pacemaker and skin overlying is dry and intact. Abdominal exam reveals normal bowel sounds, no masses, no organomegaly and no aortic enlargement. Extremities are nonedematous and both femoral and pedal pulses are normal. Skin examination shows areas of superficial skin laceration over the knees bilaterally and he also has similar areas on his feet bilaterally mainly on his first and the second toe. Areas of stage I laceration was also seen in the coccygeal area which is not deep and the area is very erythematous and noninfected and this is a fresh skin wounds. Neurologically, the patient is awake and alert and there is no focal neurological deficits. He is moving all 4 extremities without any limitation. Pupils are equal and reactive to light. No facial asymmetry. He is OA x3 Results - Laboratory Findings CBC and BMP: 04/22/19 04:26 04/22/19 04:26 PT/INR, D-dimer PT 24.2 sec (9.0-12.0) H 04/22/19 04:26 INR 2.5 (<1.2) H 04/22/19 04:26 Abnormal lab findings: Abnormal Labs 04/21/19 04/21/19 04/21/19 21:09 21:09 21:09 WBC 26.4 H Plt Count Neutrophils # 23.8 H Lymphocytes # Monocytes # 1.3 H PT INR Sodium 136 L Potassium Chloride 91 L Carbon Dioxide 18 L BUN 94 H Creatinine 3.71 H Glucose 377 H POC Glucose (mg/dL) Plasma Lactic Acid Gilbert Alkaline Phosphatase 144 H Total Creatine Kinase 469 H CK-MB (CK-2) 3.1 H Troponin I 0.141 H* Urine Protein Urine Glucose (UA) Urine Ketones Urine Blood Urine Bacteria Hyaline Casts Urine Mucus Urine Opiates Screen 04/21/19 04/21/19 04/21/19 21:09 21:09 23:25 WBC Plt Count Neutrophils # Lymphocytes # Monocytes # PT 29.0 H INR 3.0 H Sodium Potassium Chloride Carbon Dioxide BUN Creatinine Glucose POC Glucose (mg/dL) 349 H Plasma Lactic Acid Gilbert 14.5 H* Alkaline Phosphatase Total Creatine Kinase CK-MB (CK-2) Troponin I Urine Protein Urine Glucose (UA) Urine Ketones Urine Blood Urine Bacteria Hyaline Casts Urine Mucus Urine Opiates Screen 04/21/19 04/21/19 04/22/19 23:32 23:35 00:45 WBC Plt Count Neutrophils # Lymphocytes # Monocytes # PT INR Sodium Potassium Chloride Carbon Dioxide BUN Creatinine Glucose POC Glucose (mg/dL) 326 H Plasma Lactic Acid Gilbert Alkaline Phosphatase Total Creatine Kinase CK-MB (CK-2) Troponin I Urine Protein Trace H Urine Glucose (UA) 1+ H Urine Ketones Trace H Urine Blood Small H Urine Bacteria Rare H Hyaline Casts 112 H Urine Mucus Occasional H Urine Opiates Screen Detected H 04/22/19 04/22/19 04/22/19 01:03 04:26 04:26 WBC 17.7 H Plt Count 109 L Neutrophils # 15.7 H Lymphocytes # 0.9 L Monocytes # PT INR Sodium Potassium 3.2 L Chloride Carbon Dioxide BUN 94 H Creatinine 3.05 H Glucose 233 H POC Glucose (mg/dL) Plasma Lactic Acid Gilbert 4.1 H* Alkaline Phosphatase Total Creatine Kinase CK-MB (CK-2) Troponin I Urine Protein Urine Glucose (UA) Urine Ketones Urine Blood Urine Bacteria Hyaline Casts Urine Mucus Urine Opiates Screen 04/22/19 04/22/19 04:26 06:41 WBC Plt Count Neutrophils # Lymphocytes # Monocytes # PT 24.2 H INR 2.5 H Sodium Potassium Chloride Carbon Dioxide BUN Creatinine Glucose POC Glucose (mg/dL) 238 H Plasma Lactic Acid Gilbert Alkaline Phosphatase Total Creatine Kinase CK-MB (CK-2) Troponin I Urine Protein Urine Glucose (UA) Urine Ketones Urine Blood Urine Bacteria Hyaline Casts Urine Mucus Urine Opiates Screen - Diagnostic Findings Chest x-ray: image reviewed Assessment and Plan Plan: 1 altered mental status, recovered. The patient is fully awake and alert and his neurologic exam is within normal. He is awake and alert 3 this morning. Upon further questioning, he states that he had a fall and he was unable to get up and this is all he developed skin lacerations and lower extremities and he got stuck there for almost 2 hours and ultimately he became progressively more confused. His CAT scan of the brain is negative. No focal neurological deficit 2 acute lactic acidosis, improved 3 acute dehydration, improved with fluid resuscitation 4 acute kidney injury on top of chronic kidney disease. The patient has stage III kidney disease with a baseline creatinine of 1.8. Creatinine was up to 3.7 and is improving and the patient is producing adequate amount of urine output. He has a Lara catheter in place 5 BPH 6 chronic atrial fibrillation currently his cardiac rhythm is ventricular paced and the patient has a pacemaker in place for an underlying third-degree AV block. He is on anticoagulation with an INR being therapeutic range at 2.5. 7 multiple areas of skin laceration lower extremities bilaterally 8 diabetes mellitus type 2 9 peripheral vascular disease 10 osteoarthritis 11 obstructive sleep apnea does not use any form of CPAP therapy Plan Continue IV fluids at the rate of 75 mL an hour. Stop the Rocephin. Neurologic function is back to normal. Lactic acid level has normalized. Creatinine is improving. We will apply Silvadene to the lower extremity wounds. Provide the patient incentive spirometer. Continue medical condition with warfarin. Continue metoprolol. Continue Lipitor. Continue aspirin. May restart long- acting insulin in the form of NPH once the patient is able to tolerate his breakfast this morning. He may be transferred to a medical floor at a later stage today. We'll continue to follow.
[2019-04-22] MEDS ORDERED: PANTOPRAZOLE 40 MG/10 ML VIAL IV SCH (09:00)
[2019-04-22] MEDS: SODIUM CHLORIDE 0.9% 1,000 ML IV SCH ×2 (09:56→20:28)
[2019-04-22] MEDS: MULTIVITAMINS, THERA 1 EACH TAB PO SCH (09:57)
[2019-04-22] MEDS: METOPROLOL TARTRATE 25 MG TAB PO SCH ×2 (09:57→20:34)
[2019-04-22] MEDS: ATORVASTATIN 40 MG TAB PO SCH (09:57)
[2019-04-22] MEDS: ASPIRIN 81 MG PO SCH (09:57)
--- NOTE | 2019-04-22 10:45 | ECHOF ---
Referral Reason:EF MEASUREMENTS -------- HEIGHT: 172.7 cm WEIGHT: 85.3 kg BP: 116/51 IVSd: 1.7 cm (0.6 - 1.1) LVIDd: 3.5 cm (3.9 - 5.3) LVPWd: 1.4 cm (0.6 - 1.1) IVSs: 1.7 cm LVIDs: 1.7 cm LVPWs: 1.7 cm LAESV Index (A-L): 47.35 ml/m Ao Diam: 2.6 cm (2.0 - 3.7) AV Cusp: 1.5 cm (1.5 - 2.6) MV EXCURSION: 12.396 mm (> 18.000) MV EF SLOPE: 95 mm/s (70 - 150) EPSS: 1.0 cm MV E Alex: 1.04 m/s MV DecT: 169 ms MV A Alex: 0.56 m/s MV E/A Ratio: 1.84 RAP: 5.00 mmHg RVSP: 25.27 mmHg FINDINGS -------- Sinus rhythm. This was a technically difficult study with suboptimal views. Pt. not able to turn due to pain. The left ventricular size is normal. There is moderate concentric left ventricular hypertrophy. O verall left ventricular systolic function is normal with, an EF between 55 - 60 %. Increased Lap Gr anupama II Diastolic Dysfunction. The RV was not well visualized. LA is severely dilated >40 ml/m2 The right atrium was not well visualized. 5.0mg of Lumason was utilized for enhancement of images Interatrial and interventricular septum intact. The aortic valve was not well visualized. There is no evidence of aortic regurgitation. There is no evidence of aortic stenosis. Mild mitral annular calcification present. There is trace mitral regurgitation. The tricuspid valve was not well visualized. Mild tricuspid regurgitation present. There is no ev idence of pulmonary hypertension. The right ventricular systolic pressure, as measured by Doppler, is 25.27mmHg. The pulmonic valve was not well visualized. There is no pulmonic regurgitation present. The aortic root size is normal. IVC Not well visulized. There is no pericardial effusion. CONCLUSIONS -------- 1. Sinus rhythm. 2. This was a technically difficult study with suboptimal views. 3. Pt. not able to turn due to pain. 4. The left ventricular size is normal. 5. There is moderate concentric left ventricular hypertrophy. 6. Overall left ventricular systolic function is normal with, an EF between 55 - 60 %. 7. Increased Lap Grade II Diastolic Dysfunction. 8. The RV was not well visualized. 9. LA is severely dilated >40 ml/m2 10. The right atrium was not well visualized. 11. 5.0mg of Lumason was utilized for enhancement of images 12. Interatrial and interventricular septum intact. 13. The aortic valve was not well visualized. 14. There is no evidence of aortic regurgitation. 15. There is no evidence of aortic stenosis. 16. Mild mitral annular calcification present. 17. There is trace mitral regurgitation. 18. The tricuspid valve was not well visualized. 19. Mild tricuspid regurgitation present. 20. There is no evidence of pulmonary hypertension. 21. The right ventricular systolic pressure, as measured by Doppler, is 25.27mmHg. 22. The pulmonic valve was not well visualized. 23. There is no pulmonic regurgitation present. 24. The aortic root size is normal. 25. IVC Not well visulized. 26. There is no pericardial effusion. RETAIL COORDINATOR: Opal Andrew RD
--- NOTE | 2019-04-22 11:06 | CONS ---
AMPARO Russ is an 84-year-old gentleman with history of atrial fibrillation, permanent pacemaker, peripheral vascular disease, type 2 diabetes, hypertension, who is admitted to the hospital having been found confused and wandering. The patient lives with his son and son left work around 7:00 in the morning and when he returned at 7 p.m. in the evening he did not find his father and ultimately search revealed that the patient was found confused, had scraps and bruises on his legs and was brought into hospital. The patient was found to be quite dehydrated with a BUN of 94, creatinine of 3.7, and also had elevated white cell count. He had a lactic acid that was elevated due to which he is admitted to the intensive care unit. Cardiology is consulted because of elevated troponin and prior history of peripheral vascular disease and a permanent pacemaker. At the time of my evaluation this morning, patient appears comfortable at rest and denies any symptoms. There is no history of chest pain or difficulty in breathing. He is on Coumadin and INR is therapeutic at 2.5. Hemoglobin is 14. The CPK is elevated. His BUN is 94, creatinine is 3. Potassium is 3.2. Lactic acid was elevated and it has improved since that time. The patient's troponin is elevated at 0.14 and this is probably related to the renal insufficiency. The patient does not have any chest pain. PAST MEDICAL HISTORY: Past medical history is significant for persistent atrial fibrillation, peripheral vascular disease, status post iliac stent, coronary artery disease, status post permanent pacemaker, hypertension and dyslipidemia. MEDICATIONS: Medications at home included Coumadin, Lopressor, losartan, insulin, HydroDIURIL, Lasix, Lipitor and aspirin. ALLERGIES: There are no known drug allergies. FAMILY HISTORY: Negative for premature coronary artery disease. SOCIAL HISTORY: He denies current smoking. Lives with his son. PHYSICAL EXAMINATION: On exam, comfortable at rest. Heart rate is 70 beats per minute, blood pressure is 116/50, respiratory rate is 18. Chest exam reveals good air entry bilaterally. Heart exam reveals first and second heart sounds and ejection systolic murmur in the aortic area. Abdomen is soft. Examination of the extremities reveals diminished dorsalis pedis pulses, has chronic stasis changes, mild edema and there is evidence of abrasions on both his legs. LABS: Labs show renal insufficiency and INR was 3.0. Lactic acid was elevated. Troponin was elevated. ASSESSMENT: 1. Troponin elevation secondary to renal insufficiency. 2. Sick sinus syndrome, status post permanent pacemaker. 3. Persistent atrial fibrillation. 4. Peripheral vascular disease. 5. Hypertension. PLAN: Patient is doing well. I will obtain an INR on him today. Continue rest of his medications. Hydrate the patient and hopefully home in the next 24 hours. [id number] / RAVENN: [id number] /
[2019-04-22 12:16] LABS: Glucose,Whole Blood 207 mg/dL (75-99)
--- NOTE | 2019-04-22 16:02 | P.CNNES ---
History of Present Illness Consult date: 04/22/19 Reason for Consult: Unequal pupils Chief complaint: Feeling weak History of Present Illness: HISTORY OF PRESENT ILLNESS: Thank you for allowing me to evaluate Mr. Jeb Calderón. Mr. Calderón is an 84 year-old man with PMHx of A.fib, CAD, DM, HLD, HTN, osteoarthritis, sleep apnea, pacemaker, who presented to [facility] after he was found by his son outside near his house. Patient states that he was trying to enjoy the weather and was walking down the stairs, when he started feeling weak and out of breath, so he sat down. When he tried to get up again he couldn't, and he tumbled and fell. Patient denies losing consciousness. Patient's son was not at bedside at the time of my evaluation, but when the primary team discussed with the patient's son, son reported that this is highly unusual for his father because patient usually stays home and is able to manage as well. Patient on admission found with elevated lactic acid along with elevated troponins, CK, BUN and creatinine and WBC. 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 FAMILY HISTORY: Father with thyroid disorder. REVIEW OF SYSTEMS: The 14 systems are reviewed and no additional points are identified compared to the review of systems documented history and physical PHYSICAL EXAMINATION: VITAL SIGNS: T 97.9 HR 71 RR 6 BP 98/57 O2 sat 97% on RA GEN.: NAD, pleasant and cooperative HEENT: NCAT, sclera without icterus NECK: Supple SKIN AND EXTREMITIES: Warm to touch, no edema. Lots of bruising and skin abrasions in b/l LE. R 2nd toe amputation. NEURO: MENTAL STATUS: Patient alert and oriented to self, place, time. Able to name the current president. Speech fluent, able to name and repeat, following all commands readily. No right and left disorientation, neglect. CRANIAL NERVES II THROUGH XII: II: R pupil wide ellipitical shape, not reactive to light. L pupil reactive to light (Patient states he was seen by an client application support engineer previously. Was never told anything about his pupil. His client application support engineer is Dr. Torres in [place]). No afferent pupillary defect. Visual rico are intact. III, IV, : No ptosis. Extraocular movements full. No nystagmus. V: Facial sensation intact from V1-3. VII. No clear facial asymmetry. VIII: Hearing intact to finger rub bilaterally. IX, X: Symmetric palate elevation. XI: Shoulder shrug intact. XII: Tongue midline without fasciculation or atrophy. MOTOR: Normal bulk/tone. No pronator drift or tremor. Strength is 4/5 throughout all 4 extremities. Generalized weakness SENSORY: Intact to light touch and temperature in all 4 extremities. Romberg is negative. REFLEXES: 2+ throughout. Toes are downgoing. No clonus. Evelyn's is absent COORDINATION: Finger to nose and heel to haro intact. No dysmetria. Rapid alternating movements with good speed and accuracy. GAIT: Narrow-based and stable. Able to toe/heel/tandem walk DIAGNOSTIC TESTING: LABORATORY: WBC 17.7 Hgb 14.9 Platelet 109 PT 24.2 INR 2.5 Na 137 K 3.2 Cl 98 CO2 25 BUN 94 Cr 3.05 Glucose 233 AST 47 ALT 37 AlkPhos 123 CK 1173 Troponin 0.458 IMAGING: CT Head w/o contrast 04/21/19: There is no acute fracture or dislocation evident in the cervical spine. No acu te intracranial hemorrhage or midline shift seen. Moderate atrophy ASSESSMENT/RECOMMENDATIONS: 84 year-old man with PMHx of A.fib, CAD, DM, HLD, HTN, osteoarthritis, sleep apnea, pacemaker, who presented to [facility] after he was found by his son outside near his house. Patient found with multiple metabolic derangements but patient mentation is intact along with no focal neuro deficits. 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 Patient has a follow up appointment with Dr. Torres, an client application support engineer in [place]. No additional inpatient work-up for unequal pupil recommended at this time. Neurology will sign off at this time. Please feel free to contact Neurology again if with additional questions or concerns. Past Medical History Past Medical History: Coronary Artery Disease (CAD), Diabetes Mellitus, Hyperlipidemia, Hypertension, Osteoarthritis (OA), Prostate Disorder, Skin Disorder, Sleep Apnea/CPAP/BIPAP, Vascular Disorder Additional Past Medical History / Comment(s): CAD, diabetes, hyperlipidemia, BPH, peripheral vascular disease, chronic kidney disease stage III, hemorrhoids, varicose veins, osteoarthritis History of Any Multi-Drug Resistant Organisms: None Reported Past Surgical History: Hernia Repair, Joint Replacement, Orthopedic Surgery Additional Past Surgical History / Comment(s): Rt hip replacement, malinda cataract surgery, Screw in L hip (fx). Abdominal Aortoram and Bilat. Lower Ext., stent in left leg. 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 oral surgery Past Anesthesia/Blood Transfusion Reactions: No Reported Reaction Type of Cardiac Device: Permanent Pacemaker Device Placement Date:: 11/26/17 Past Psychological History: Anxiety Smoking Status: Never smoker Past Alcohol Use History: None Reported Past Drug Use History: None Reported - Past Family History Father History Unknown: Yes Family Medical History: Thyroid Disorder Additional Family Medical History / Comment(s): AFTER A GOITER surgery. Mother History Unknown: Yes Additional Family Medical History / Comment(s): IN A MVA Sister(s) Family Medical History: Cancer Medications and Allergies Home Medications Medication Instructions Recorded Confirmed Type Atorvastatin [Lipitor] 40 mg PO DAILY 04/21/16 04/21/19 History Metoclopramide [Reglan] 10 mg PO DAILY 01/03/17 04/21/19 History Insulin NPH Hum/Reg Insulin Hm See Protocol SQ AC-TID 09/28/17 04/21/19 History [NovoLIN 70-30 100 UNIT/ML VIAL] Aspirin [Adult Low Dose Aspirin EC] 81 mg PO DAILY 11/15/17 04/21/19 History Furosemide [Lasix] 40 mg PO DAILY 11/15/17 04/21/19 History Hydrochlorothiazide [Hydrodiuril] 25 mg PO DAILY tab 11/27/17 04/21/19 Rx Losartan Potassium 50 mg PO DAILY 04/21/19 04/21/19 History Metoprolol Tartrate [Lopressor] 12.5 mg PO BID 04/21/19 04/21/19 History Multivitamins, Thera [Multivitamin 1 tab PO DAILY 04/21/19 04/21/19 History (formulary)] Warfarin [Coumadin] 5 mg PO DAILY 04/21/19 04/21/19 History Allergies Allergy/AdvReac Type Severity Reaction Status Date / Time No Known Allergies Allergy Verified 04/21/19 20:54 Physical Examination - Vital Signs Vital Signs: Vital Signs Temp Pulse Resp BP Pulse Ox 04/22/19 12:00 97.9 F 71 6 L 98/57 97 04/22/19 10:00 70 17 111/50 98 04/22/19 09:00 70 12 121/56 98 04/22/19 08:00 97.7 F 70 16 121/54 99 04/22/19 07:00 70 14 116/51 99 04/22/19 06:00 70 14 112/51 99 04/22/19 05:00 70 16 100/59 99 04/22/19 04:00 97.4 F L 71 14 114/58 97 04/22/19 03:00 69 14 121/55 98 04/22/19 02:00 70 14 128/54 98 04/22/19 01:00 70 14 128/54 96 04/22/19 00:00 97.4 F L 69 12 138/54 98 04/21/19 23:20 97.4 F L 70 18 106/68 99 04/21/19 20:35 97.3 F L 69 18 120/66 98 Intake and Output 04/22/19 04/22/19 04/22/19 06:59 14:59 22:59 Intake Total 700 600 Output Total 665 380 Balance 35 220 Intake: IV 700 600 Sodium Chloride 0.9% 1, 700 600 000 ml @ 100 mls/hr IV . Q10H STA Rx#:[id number] Output: Urine 665 380 Other: Voiding Method Indwelling Catheter Indwelling Catheter Weight 85.5 kg Results - Laboratory Findings CBC and BMP: 04/22/19 04:26 04/22/19 04:26 Abnormal Lab Findings: Abnormal Labs 04/21/19 04/21/19 04/21/19 21:09 21:09 21:09 WBC 26.4 H Plt Count Neutrophils # 23.8 H Lymphocytes # Monocytes # 1.3 H PT INR Sodium 136 L Potassium Chloride 91 L Carbon Dioxide 18 L BUN 94 H Creatinine 3.71 H Glucose 377 H POC Glucose (mg/dL) Plasma Lactic Acid Gilbert Alkaline Phosphatase 144 H Creatine Kinase Total Creatine Kinase 469 H CK-MB (CK-2) 3.1 H Troponin I 0.141 H* Urine Protein Urine Glucose (UA) Urine Ketones Urine Blood Urine Bacteria Hyaline Casts Urine Mucus Urine Opiates Screen 04/21/19 04/21/19 04/21/19 21:09 21:09 23:25 WBC Plt Count Neutrophils # Lymphocytes # Monocytes # PT 29.0 H INR 3.0 H Sodium Potassium Chloride Carbon Dioxide BUN Creatinine Glucose POC Glucose (mg/dL) 349 H Plasma Lactic Acid Gilbert 14.5 H* Alkaline Phosphatase Creatine Kinase Total Creatine Kinase CK-MB (CK-2) Troponin I Urine Protein Urine Glucose (UA) Urine Ketones Urine Blood Urine Bacteria Hyaline Casts Urine Mucus Urine Opiates Screen 04/21/19 04/21/19 04/22/19 23:32 23:35 00:45 WBC Plt Count Neutrophils # Lymphocytes # Monocytes # PT INR Sodium Potassium Chloride Carbon Dioxide BUN Creatinine Glucose POC Glucose (mg/dL) 326 H Plasma Lactic Acid Gilbert Alkaline Phosphatase Creatine Kinase Total Creatine Kinase CK-MB (CK-2) Troponin I Urine Protein Trace H Urine Glucose (UA) 1+ H Urine Ketones Trace H Urine Blood Small H Urine Bacteria Rare H Hyaline Casts 112 H Urine Mucus Occasional H Urine Opiates Screen Detected H 04/22/19 04/22/19 04/22/19 01:03 04:26 04:26 WBC 17.7 H Plt Count 109 L Neutrophils # 15.7 H Lymphocytes # 0.9 L Monocytes # PT INR Sodium Potassium 3.2 L Chloride Carbon Dioxide BUN 94 H Creatinine 3.05 H Glucose 233 H POC Glucose (mg/dL) Plasma Lactic Acid Gilbert 4.1 H* Alkaline Phosphatase Creatine Kinase Total Creatine Kinase CK-MB (CK-2) Troponin I Urine Protein Urine Glucose (UA) Urine Ketones Urine Blood Urine Bacteria Hyaline Casts Urine Mucus Urine Opiates Screen 04/22/19 04/22/19 04/22/19 04:26 06:41 08:21 WBC Plt Count Neutrophils # Lymphocytes # Monocytes # PT 24.2 H INR 2.5 H Sodium Potassium Chloride Carbon Dioxide BUN Creatinine Glucose POC Glucose (mg/dL) 238 H Plasma Lactic Acid Gilbert Alkaline Phosphatase Creatine Kinase 1173 H* Total Creatine Kinase CK-MB (CK-2) Troponin I Urine Protein Urine Glucose (UA) Urine Ketones Urine Blood Urine Bacteria Hyaline Casts Urine Mucus Urine Opiates Screen 04/22/19 04/22/19 08:21 12:04 WBC Plt Count Neutrophils # Lymphocytes # Monocytes # PT INR Sodium Potassium Chloride Carbon Dioxide BUN Creatinine Glucose POC Glucose (mg/dL) 207 H Plasma Lactic Acid Gilbert Alkaline Phosphatase Creatine Kinase Total Creatine Kinase CK-MB (CK-2) Troponin I 0.458 H* Urine Protein Urine Glucose (UA) Urine Ketones Urine Blood Urine Bacteria Hyaline Casts Urine Mucus Urine Opiates Screen
[2019-04-22 17:00] VITALS: PULSE 70
[2019-04-22 17:12] LABS: Glucose,Whole Blood 188 mg/dL (75-99)
[2019-04-22] MEDS ORDERED: WARFARIN 5 MG TAB PO SCH (18:00)
--- NOTE | 2019-04-22 18:53 | P.PN ---
Subjective Progress Note Date: 04/22/19 (delayed charting seen at 0915) Principal diagnosis: weakness Patient is an 84-year-old male past medical history of atrial fibrillation (on Coumadin), dual-chamber pacemaker (history of third-degree AV block), peripheral vascular disease, type 2 diabetes mellitus, hypertension, and dyslipidemia who is brought into the emergency department secondary to hypothermia. In the emergency department he underwent an extensive evaluation. His rectal temperature was 97.3 with the remainder of his vital signs normal. Laboratory analysis showed an elevated lactic acid 14.5, troponin 0.140, creatine kinase of 469, BUN 94 (baseline 40) creatinine 3.71 (baseline 1.8), and white blood cell count of 26.4. Urinalysis consistent with dehydration but no white blood cells. Patient underwent an extensive radiologic evaluation. CT head, pelvic x-ray, elbow x-ray, chest x-ray, and bilateral knee x-rays all were negative for any acute process. He was admitted to the ICU and was kept on a bear hugger for rewarming. The morning after admission his white blood cell count was improved to 17.7, creatinine improved to 3, lactic acidosis resolved, creatine kinase was increasing, and troponin was up trending. He is given a dose of Rocephin 1 g for empiric Antibiotic coverage. He was seen by critical care who recommended continuing IV fluids, stopping Rocephin, and applying Silvadene to lower extremity wounds. He was seen by neurology and his mental function was at baseline. Echocardiogram was obtained which showed an ejection fraction of 55-60%, severely dilated left atrium, and mild valvular disease. He was seen by cardiology who felt that his troponin elevation secondary to renal insufficiency. Patient seen and examined at bedside. He states that he is getting weaker over the last 2-3 weeks. He reports that he was sitting outside trying to get up and felt even weaker and then rolled down the hill. He denies any loss of consciousness. He denies any current chest pain, shortness breath, nausea, or vomiting. He is not having any pain anywhere. He states that his bruises and bumps are not bothering him. Objective - Vital Signs Vital signs: Vital Signs Temp 98.1 F 04/22/19 16:00 Pulse 70 04/22/19 16:00 Resp 16 04/22/19 16:00 BP 116/55 04/22/19 16:00 Pulse Ox 95 04/22/19 16:00 Intake & Output 04/21/19 04/22/19 04/22/19 18:59 06:59 18:59 Intake Total 700 950 Output Total 665 730 Balance 35 220 Weight 85.5 kg Intake: IV 700 950 Sodium Chloride 0.9% 1, 700 950 000 ml @ 100 mls/hr IV . Q10H STA Rx#:[id number] Output: Urine 665 730 Other: Voiding Method Indwelling Catheter Indwelling Catheter - Exam General: non toxic, no distress, appears at stated age Derm: Multiple areas of abrasions involving bilateral lower extremities warm, dry Head: atraumatic, normocephalic, symmetric Eyes: EOMI, no lid lag, anicteric sclera Mouth: no lip lesion, mucus membranes moist Cardiovascular: S1S2 reg, no murmur, positive posterior tibial pulse bilateral, Lungs: Decreased breath sounds bilateral, no rhonchi, no rales , no accessory muscle use Abdominal: soft, nontender to palpation, no guarding, no appreciable organomegaly Ext: no gross muscle atrophy, no edema, no contractures Neuro: CN II-XI grossly intact, no focal neuro deficits Psych: Alert, oriented, appropriate affect - Labs CBC & Chem 7: 04/22/19 04:26 04/22/19 04:26 Labs: Abnormal Lab Results - Last 24 Hours (Table) 04/21/19 04/21/19 04/21/19 Range/Units 21:09 21:09 21:09 WBC 26.4 H (3.8-10.6) k/uL Plt Count (150-450) k/uL Neutrophils # 23.8 H (1.3-7.7) k/uL Lymphocytes # (1.0-4.8) k/uL Monocytes # 1.3 H (0-1.0) k/uL PT (9.0-12.0) sec INR (<1.2) Sodium 136 L (137-145) mmol/L Potassium (3.5-5.1) mmol/L Chloride 91 L (98-107) mmol/L Carbon Dioxide 18 L (22-30) mmol/L BUN 94 H (9-20) mg/dL Creatinine 3.71 H (0.66-1.25) mg/dL Glucose 377 H (74-99) mg/dL POC Glucose (mg/dL) (75-99) mg/dL Plasma Lactic Acid Gilbert (0.7-2.0) mmol/L Alkaline Phosphatase 144 H (38-126) U/L Creatine Kinase (55-170) U/L Total Creatine Kinase 469 H (55-170) U/L CK-MB (CK-2) 3.1 H (0.0-2.4) ng/mL Troponin I 0.141 H* (0.000-0.034) ng/mL Urine Protein (Negative) Urine Glucose (UA) (Negative) Urine Ketones (Negative) Urine Blood (Negative) Urine Bacteria (None) /hpf Hyaline Casts (0-2) /lpf Urine Mucus (None) /hpf Urine Opiates Screen (NotDetected) 04/21/19 04/21/19 04/21/19 Range/Units 21:09 21:09 23:25 WBC (3.8-10.6) k/uL Plt Count (150-450) k/uL Neutrophils # (1.3-7.7) k/uL Lymphocytes # (1.0-4.8) k/uL Monocytes # (0-1.0) k/uL PT 29.0 H (9.0-12.0) sec INR 3.0 H (<1.2) Sodium (137-145) mmol/L Potassium (3.5-5.1) mmol/L Chloride (98-107) mmol/L Carbon Dioxide (22-30) mmol/L BUN (9-20) mg/dL Creatinine (0.66-1.25) mg/dL Glucose (74-99) mg/dL POC Glucose (mg/dL) 349 H (75-99) mg/dL Plasma Lactic Acid Gilbert 14.5 H* (0.7-2.0) mmol/L Alkaline Phosphatase (38-126) U/L Creatine Kinase (55-170) U/L Total Creatine Kinase (55-170) U/L CK-MB (CK-2) (0.0-2.4) ng/mL Troponin I (0.000-0.034) ng/mL Urine Protein (Negative) Urine Glucose (UA) (Negative) Urine Ketones (Negative) Urine Blood (Negative) Urine Bacteria (None) /hpf Hyaline Casts (0-2) /lpf Urine Mucus (None) /hpf Urine Opiates Screen (NotDetected) 04/21/19 04/21/19 04/22/19 Range/Units 23:32 23:35 00:45 WBC (3.8-10.6) k/uL Plt Count (150-450) k/uL Neutrophils # (1.3-7.7) k/uL Lymphocytes # (1.0-4.8) k/uL Monocytes # (0-1.0) k/uL PT (9.0-12.0) sec INR (<1.2) Sodium (137-145) mmol/L Potassium (3.5-5.1) mmol/L Chloride (98-107) mmol/L Carbon Dioxide (22-30) mmol/L BUN (9-20) mg/dL Creatinine (0.66-1.25) mg/dL Glucose (74-99) mg/dL POC Glucose (mg/dL) 326 H (75-99) mg/dL Plasma Lactic Acid Gilbert (0.7-2.0) mmol/L Alkaline Phosphatase (38-126) U/L Creatine Kinase (55-170) U/L Total Creatine Kinase (55-170) U/L CK-MB (CK-2) (0.0-2.4) ng/mL Troponin I (0.000-0.034) ng/mL Urine Protein Trace H (Negative) Urine Glucose (UA) 1+ H (Negative) Urine Ketones Trace H (Negative) Urine Blood Small H (Negative) Urine Bacteria Rare H (None) /hpf Hyaline Casts 112 H (0-2) /lpf Urine Mucus Occasional H (None) /hpf Urine Opiates Screen Detected H (NotDetected) 04/22/19 04/22/19 04/22/19 Range/Units 01:03 04:26 04:26 WBC 17.7 H (3.8-10.6) k/uL Plt Count 109 L (150-450) k/uL Neutrophils # 15.7 H (1.3-7.7) k/uL Lymphocytes # 0.9 L (1.0-4.8) k/uL Monocytes # (0-1.0) k/uL PT (9.0-12.0) sec INR (<1.2) Sodium (137-145) mmol/L Potassium 3.2 L (3.5-5.1) mmol/L Chloride (98-107) mmol/L Carbon Dioxide (22-30) mmol/L BUN 94 H (9-20) mg/dL Creatinine 3.05 H (0.66-1.25) mg/dL Glucose 233 H (74-99) mg/dL POC Glucose (mg/dL) (75-99) mg/dL Plasma Lactic Acid Gilbert 4.1 H* (0.7-2.0) mmol/L Alkaline Phosphatase (38-126) U/L Creatine Kinase (55-170) U/L Total Creatine Kinase (55-170) U/L CK-MB (CK-2) (0.0-2.4) ng/mL Troponin I (0.000-0.034) ng/mL Urine Protein (Negative) Urine Glucose (UA) (Negative) Urine Ketones (Negative) Urine Blood (Negative) Urine Bacteria (None) /hpf Hyaline Casts (0-2) /lpf Urine Mucus (None) /hpf Urine Opiates Screen (NotDetected) 04/22/19 04/22/19 04/22/19 Range/Units 04:26 06:41 08:21 WBC (3.8-10.6) k/uL Plt Count (150-450) k/uL Neutrophils # (1.3-7.7) k/uL Lymphocytes # (1.0-4.8) k/uL Monocytes # (0-1.0) k/uL PT 24.2 H (9.0-12.0) sec INR 2.5 H (<1.2) Sodium (137-145) mmol/L Potassium (3.5-5.1) mmol/L Chloride (98-107) mmol/L Carbon Dioxide (22-30) mmol/L BUN (9-20) mg/dL Creatinine (0.66-1.25) mg/dL Glucose (74-99) mg/dL POC Glucose (mg/dL) 238 H (75-99) mg/dL Plasma Lactic Acid Gilbert (0.7-2.0) mmol/L Alkaline Phosphatase (38-126) U/L Creatine Kinase 1173 H* (55-170) U/L Total Creatine Kinase (55-170) U/L CK-MB (CK-2) (0.0-2.4) ng/mL Troponin I (0.000-0.034) ng/mL Urine Protein (Negative) Urine Glucose (UA) (Negative) Urine Ketones (Negative) Urine Blood (Negative) Urine Bacteria (None) /hpf Hyaline Casts (0-2) /lpf Urine Mucus (None) /hpf Urine Opiates Screen (NotDetected) 04/22/19 04/22/19 04/22/19 Range/Units 08:21 12:04 17:01 WBC (3.8-10.6) k/uL Plt Count (150-450) k/uL Neutrophils # (1.3-7.7) k/uL Lymphocytes # (1.0-4.8) k/uL Monocytes # (0-1.0) k/uL PT (9.0-12.0) sec INR (<1.2) Sodium (137-145) mmol/L Potassium (3.5-5.1) mmol/L Chloride (98-107) mmol/L Carbon Dioxide (22-30) mmol/L BUN (9-20) mg/dL Creatinine (0.66-1.25) mg/dL Glucose (74-99) mg/dL POC Glucose (mg/dL) 207 H (75-99) mg/dL Plasma Lactic Acid Gilbert (0.7-2.0) mmol/L Alkaline Phosphatase (38-126) U/L Creatine Kinase 1500 H* (55-170) U/L Total Creatine Kinase (55-170) U/L CK-MB (CK-2) (0.0-2.4) ng/mL Troponin I 0.458 H* (0.000-0.034) ng/mL Urine Protein (Negative) Urine Glucose (UA) (Negative) Urine Ketones (Negative) Urine Blood (Negative) Urine Bacteria (None) /hpf Hyaline Casts (0-2) /lpf Urine Mucus (None) /hpf Urine Opiates Screen (NotDetected) 04/22/19 04/22/19 Range/Units 17:01 17:01 WBC (3.8-10.6) k/uL Plt Count (150-450) k/uL Neutrophils # (1.3-7.7) k/uL Lymphocytes # (1.0-4.8) k/uL Monocytes # (0-1.0) k/uL PT (9.0-12.0) sec INR (<1.2) Sodium (137-145) mmol/L Potassium (3.5-5.1) mmol/L Chloride (98-107) mmol/L Carbon Dioxide (22-30) mmol/L BUN (9-20) mg/dL Creatinine (0.66-1.25) mg/dL Glucose (74-99) mg/dL POC Glucose (mg/dL) 188 H (75-99) mg/dL Plasma Lactic Acid Gilbert (0.7-2.0) mmol/L Alkaline Phosphatase (38-126) U/L Creatine Kinase (55-170) U/L Total Creatine Kinase (55-170) U/L CK-MB (CK-2) (0.0-2.4) ng/mL Troponin I 0.332 H* (0.000-0.034) ng/mL Urine Protein (Negative) Urine Glucose (UA) (Negative) Urine Ketones (Negative) Urine Blood (Negative) Urine Bacteria (None) /hpf Hyaline Casts (0-2) /lpf Urine Mucus (None) /hpf Urine Opiates Screen (NotDetected) Assessment and Plan Assessment: Hyponatremia secondary to being outside for a prolonged period of time -Continue with warming -Resolved Acute kidney injury and chronic kidney disease stage III with baseline creatinine 1.8 -Continue with IV fluids -Mild rhabdo continue to monitor -Possibly secondary to ATN -If no improvement in a.m. consult nephrology -Avoid additional nephrotoxic agents -Follow basic metabolic profile - losartan on hold, HCTZ on hold Troponin elevation -Seen by cardiology and felt likely secondary to acute kidney injury -Await pacemaker interrogation secondary to unknown cause of acute onset weaknes s -Continue to trend -Aspirin, Lipitor, beta marvin Leukocytosis, suspect emargination from stress-induced -No active signs of infection -Stop Rocephin -Follow CBC Diabetes mellitus type 2 -Obtain insulin dosing from Dr. Ferrera's office -Continue sliding scale insulin -Last hemoglobin A1c 8.2 Atrial fibrillation, sick sinus syndrome, status post pacemaker -Continue with Coumadin therapy -Pharmacy to dose -Telemetry -Cardiology recommendations Hypertension -controlled -Continue beta marvin Dyslipidemia -Continue Lipitor Generalized weakness -PT/OT evaluation Lactic acidosis, resolved DVT prophylaxis:Coumadin Discussed with: nursing Anticipated discharge: 1-[address]: home with home health vs SNF A total of 45 minutes was spent on the care of this complex patient more than 50% of the time was spent in counseling and care coordination.
[2019-04-22 20:38] LABS: Glucose,Whole Blood 257 mg/dL (75-99)
[2019-04-23] MEDS: ACETAMINOPHEN TAB 500 MG TAB PO PRN ×3 (02:22→14:11)
[2019-04-23 04:59] LABS: HCT 38.9 % (39.0-53.0); HGB 13.1 gm/dL (13.0-17.5); MCH 30.3 pg (25.0-35.0); MCHC 33.7 g/dL (31.0-37.0); MCV 89.8 fL (80.0-100.0); Mean Platelet Volume 7.1; Platelet Count 112 k/uL (150-450); RBC 4.33 m/uL (4.30-5.90); RDW 13.2 % (11.5-15.5); WBC 11.4 k/uL (3.8-10.6)
[2019-04-23 05:04] LABS: INR 4.1 (<1.2); Prothrombin Time 39.6 sec (9.0-12.0)
[2019-04-23 05:08] LABS: Calcium 8.3 mg/dL (8.4-10.2)
[2019-04-23] MEDS: POTASSIUM CHLORIDE ER 20 MEQ TAB.ER PO SCH ×2 (05:53→07:01)
[2019-04-23] MEDS: SODIUM CHLORIDE 0.9% 1,000 ML IV SCH ×2 (05:54→18:41)
[2019-04-23] MEDS: INSULIN ASPART (NovoLOG) 100 UNIT/ML VIAL SQ SCH ×4 (07:01→21:55)
[2019-04-23 07:08] LABS: Glucose,Whole Blood 212 mg/dL (75-99)
[2019-04-23] MEDS: METOPROLOL TARTRATE 25 MG TAB PO SCH ×2 (08:20→21:54)
[2019-04-23] MEDS: ATORVASTATIN 40 MG TAB PO SCH (08:20)
[2019-04-23] MEDS: MULTIVITAMINS, THERA 1 EACH TAB PO SCH (08:20)
[2019-04-23] MEDS: ASPIRIN 81 MG PO SCH (08:20)
[2019-04-23 12:13] LABS: Glucose,Whole Blood 295 mg/dL (75-99)
[2019-04-23] MEDS ORDERED: INSULIN ASPART (NovoLOG) 100 UNIT/ML VIAL SQ ONE (12:40)
--- NOTE | 2019-04-23 13:00 | CDI ---
Documentation Clarification Form Date: 04/23/2019 12:43:46 PM From: Landy Walker RN CCDS Admit Date: 04/21/2019 10:47:00 PM Patient Name: eJb Calderón Visit Number: [id number] Discharge Date: ATTENTION: The Clinical Documentation Specialists (CDI) and [facility] Coding Staff appreciate your assistance in clarifying documentation. Please respond to the clarification below the line at the bottom and electronically sign. The CDI & [facility] Coding staff will review the response and follow-up if needed. Please note: Queries are made part of the Legal Health Record. If you have any questions, please contact the author of this message via ITS. Dr. Iman Hdz Confusion was documented in the ED report 04/21/2019 History/Risk Factors: 84-year-old male presents to the ED via EMS for Hypothermia after he was found outside near his house. Medical history AFIB; Pacemaker; CAD; DM; HTN Clinical Indicators: Neuro consults for confusion Neuro Patients mentation is intact along with no focal neuro deficits Labs: Lactic acid 14.5; Troponin 0.141, 0.458 CK 469; Bun 94; Cr 3.71 Wbc 26.4, UA Hylaine Casts 112; CT Brain No acute intracranial hemorrhage or midline shift is seen. Treatment:04/21/2019 Erik Cm; ICU admission; 3L 0.9ns ivfl bolus then at 100cchr ; [place]pehin ivpb x1; Dextrose 5% ns iv 100cchr In your professional opinion, please clarify the etiology of the Confusion, if known. * Metabolic Encephalopathy (specify Type and Underlying Medical Illness) * Other condition (please specify) * Unable to determine (Last Revision: September 2017) Toxic encephalopathy MTDD
--- NOTE | 2019-04-23 13:35 | PN ---
PROGRESS NOTE Jeb is an 84-year-old gentleman with history of atrial fibrillation, permanent pacemaker, peripheral vascular disease, hypertension, that is admitted to hospital for persistent atrial fibrillation and we were consulted for mild troponin elevation. The patient had an echocardiogram that showed normal LV systolic function with mild tricuspid regurgitation. Today patient is feeling better. On exam, heart rate is 70 beats per minute. Blood pressure is 109/60. respiratory rate is 18. Chest exam reveals good air entry bilaterally. Heart exam reveals first and second heart sounds. No gallop. Abdomen is soft. Examination of extremities reveals mild edema. Peripheral pulses are felt. LABS: Labs showed that the troponin 0.1, 0.4 and 0.3. BUN and creatinine are elevated at 70 and 1.9. ASSESSMENT: 1. Elevated troponin secondary to renal insufficiency. 2. Sick sinus syndrome, status post permanent pacemaker. 3. Persistent atrial fibrillation. 4. Peripheral vascular disease. PLAN: The patient is doing well at the moment. He will continue current medications including aspirin, Lipitor, insulin, Lopressor, Coumadin and his INR is . MMODL / IJN: [id number] /
--- NOTE | 2019-04-23 14:51 | P.PN ---
Subjective Progress Note Date: 04/23/19 Principal diagnosis: weakness Patient is an 84-year-old male past medical history of atrial fibrillation (on Coumadin), dual-chamber pacemaker (history of third-degree AV block), peripheral vascular disease, type 2 diabetes mellitus, hypertension, and dyslipidemia who is brought into the emergency department secondary to hypothermia. In the emergency department he underwent an extensive evaluation. His rectal temperature was 97.3 with the remainder of his vital signs normal. Laboratory analysis showed an elevated lactic acid 14.5, troponin 0.140, creatine kinase of 469, BUN 94 (baseline 40) creatinine 3.71 (baseline 1.8), and white blood cell count of 26.4. Urinalysis consistent with dehydration but no white blood cells. Patient underwent an extensive radiologic evaluation. CT head, pelvic x-ray, elbow x-ray, chest x-ray, and bilateral knee x-rays all were negative for any acute process. He was admitted to the ICU and was kept on a bear hugger for rewarming. The morning after admission his white blood cell count was improved to 17.7, creatinine improved to 3, lactic acidosis resolved, creatine kinase was increasing, and troponin was up trending. He is given a dose of Rocephin 1 g for empiric Antibiotic coverage. He was seen by critical care who recommended continuing IV fluids, stopping Rocephin, and applying Silvadene to lower extremity wounds. He was seen by neurology and his mental function was at baseline. Echocardiogram was obtained which showed an ejection fraction of 55-60%, severely dilated left atrium, and mild valvular disease. He was seen by cardiology who felt that his troponin elevation secondary to renal insufficiency. He continued to improve and renal function improved with hydration. Patient seen and examined at bedside. No chest pain, no shortness of breath, no nausea, feeling very stiff and sore, having to go to the bathroom. D/W him HH VS SNF and awaiting therapy evaluation. Objective - Vital Signs Vital signs: Vital Signs Temp 98 F 04/23/19 12:00 Pulse 70 04/23/19 12:00 Resp 18 04/23/19 12:00 BP 109/60 04/23/19 12:00 Pulse Ox 95 04/23/19 12:00 Intake & Output 04/22/19 04/23/19 04/23/19 18:59 06:59 18:59 Intake Total 950 225 855 Output Total 730 975 280 Balance 220 -750 575 Weight 87.5 kg Intake: IV 950 225 375 Sodium Chloride 0.9% 1, 950 150 000 ml @ 100 mls/hr IV . Q10H STA Rx#:[id number] Sodium Chloride 0.9% 1, 75 000 ml @ 120 mls/hr IV . Q8H20M TREV Rx#:[id number] ns 375 Oral 480 Output: Urine 730 975 280 Other: Voiding Method Indwelling Catheter Indwelling Catheter Indwelling Catheter - Exam General: non toxic, no distress, appears at stated age Derm: Multiple areas of abrasions involving bilateral lower extremities warm, dry Head: atraumatic, normocephalic, symmetric Eyes: EOMI, no lid lag, anicteric sclera Mouth: no lip lesion, mucus membranes moist Cardiovascular: S1S2 reg, no murmur, positive posterior tibial pulse bilateral, Lungs: Decreased breath sounds bilateral, no rhonchi, no rales , no accessory muscle use Abdominal: soft, nontender to palpation, no guarding, no appreciable organomegaly Ext: no gross muscle atrophy, no edema, no contractures Neuro: CN II-XI grossly intact, no focal neuro deficits Psych: Alert, oriented, appropriate affect - Labs CBC & Chem 7: 04/23/19 04:32 04/23/19 04:32 Labs: Abnormal Lab Results - Last 24 Hours (Table) 04/22/19 04/22/19 04/22/19 Range/Units 17:01 17:01 17:01 WBC (3.8-10.6) k/uL Hct (39.0-53.0) % Plt Count (150-450) k/uL PT (9.0-12.0) sec INR (<1.2) Sodium (137-145) mmol/L Potassium (3.5-5.1) mmol/L BUN (9-20) mg/dL Creatinine (0.66-1.25) mg/dL Glucose (74-99) mg/dL POC Glucose (mg/dL) 188 H (75-99) mg/dL Calcium (8.4-10.2) mg/dL Creatine Kinase 1500 H* (55-170) U/L Troponin I 0.332 H* (0.000-0.034) ng/mL 04/22/19 04/23/19 04/23/19 Range/Units 20:27 04:32 04:32 WBC 11.4 H (3.8-10.6) k/uL Hct 38.9 L (39.0-53.0) % Plt Count 112 L (150-450) k/uL PT 39.6 H (9.0-12.0) sec INR 4.1 H (<1.2) Sodium (137-145) mmol/L Potassium (3.5-5.1) mmol/L BUN (9-20) mg/dL Creatinine (0.66-1.25) mg/dL Glucose (74-99) mg/dL POC Glucose (mg/dL) 257 H (75-99) mg/dL Calcium (8.4-10.2) mg/dL Creatine Kinase (55-170) U/L Troponin I (0.000-0.034) ng/mL 04/23/19 04/23/19 04/23/19 Range/Units 04:32 06:56 12:01 WBC (3.8-10.6) k/uL Hct (39.0-53.0) % Plt Count (150-450) k/uL PT (9.0-12.0) sec INR (<1.2) Sodium 136 L (137-145) mmol/L Potassium 3.0 L (3.5-5.1) mmol/L BUN 70 H (9-20) mg/dL Creatinine 1.92 H (0.66-1.25) mg/dL Glucose 186 H (74-99) mg/dL POC Glucose (mg/dL) 212 H 295 H (75-99) mg/dL Calcium 8.3 L (8.4-10.2) mg/dL Creatine Kinase (55-170) U/L Troponin I (0.000-0.034) ng/mL Microbiology - Last 24 Hours (Table) 04/21/19 22:35 Blood Culture - Preliminary Blood No Growth after 24 hours Assessment and Plan Assessment: Acute kidney injury and chronic kidney disease stage III with baseline creatinine 1.8 -Continue with IV fluids, stop this evening -Mild rhabdo continue to monitor -Possibly secondary to ATN -Avoid additional nephrotoxic agents -Follow basic metabolic profile - losartan on hold, HCTZ on hold Type II WA -Seen by cardiology and felt likely secondary to acute kidney injury -Aspirin, Lipitor, beta marvin Leukocytosis, suspect demargination from stress-induced -No active signs of infection -Follow CBC Diabetes mellitus type 2 with hyperglycemia -on 70/30 20 untis BID -Continue sliding scale insulin, start levemir -Last hemoglobin A1c 8.2 Thrombocytopenia, reactive - follow CBC Atrial fibrillation, sick sinus syndrome, status post pacemaker -Continue with Coumadin therapy -Pharmacy to dose -Telemetry -Cardiology recommendations Hypertension -controlled -Continue beta marvin Dyslipidemia -Continue Lipitor Generalized weakness -PT/OT evaluation Lactic acidosis, resolved Hypothermia secondary to being outside for a prolonged period of time -Resolved DVT prophylaxis:Coumadin Discussed with: nursing Anticipated discharge: in AM Anticipated discharge place: home with home health vs SNF A total of 45 minutes was spent on the care of this complex patient more than 50% of the time was spent in counseling and care coordination.
--- NOTE | 2019-04-23 15:27 | P.PN ---
Subjective Progress Note Date: 04/23/19 On today's evaluation of 04/23/2019, the patient has no specific complaints. He is sitting up on a chair. He has developed a mild component of rhabdomyolysis and CPK is slightly elevated. There is also some limited troponin leak and cardiology is not planning to do any further intervention that regard. Echocardiogram showed a preserved LV function and there were no significant valvular abnormalities. The patient is awake and alert. He has developed anisocoria which is probably chronic finding. CAT scan of the brain at a time of admission was negative for any acute abnormalities. The patient is not having any focal neurological deficit. In fact he is awake and alert and following commands and answering questions appropriately. The wounds are covered and Silvadene is applied to the ones on his knees and lower extremities bilaterally. He is on empiric antibiotic coverage with IV Rocephin. No fever. No chills. No focal neurological deficit. No chest pain. No shortness of breath. His renal function continues to improve in the creatinine is down to 1.9. White cell count is 11.4. Hemoglobin is at 15.1. Objective - Vital Signs Vital signs: Vital Signs Temp 98 F 04/23/19 12:00 Pulse 70 04/23/19 12:00 Resp 18 04/23/19 12:00 BP 109/60 04/23/19 12:00 Pulse Ox 95 04/23/19 12:00 Intake & Output 04/22/19 04/23/19 04/23/19 18:59 06:59 18:59 Intake Total 274 157 5907 Output Total 730 975 480 Balance 220 -750 525 Weight 87.5 kg Intake: IV 950 225 375 Sodium Chloride 0.9% 1, 950 150 000 ml @ 100 mls/hr IV . Q10H STA Rx#:[id number] Sodium Chloride 0.9% 1, 75 000 ml @ 75 mls/hr IV . [id number] TREV Rx#:[id number] ns 375 Intake, IV Titration 150 Amount Sodium Chloride 0.9% 1, 150 000 ml @ 75 mls/hr IV . [id number] TREV Rx#:[id number] Oral 480 Output: Urine 730 975 480 Other: Voiding Method Indwelling Catheter Indwelling Catheter Indwelling Catheter - Exam The patient appeared well nourished and normally developed. Vital signs as documented. Head exam is unremarkable. No scleral icterus or corneal arcus noted. Neck is without jugular venous distension, thyromegaly, or carotid bruits. Carotid upstrokes are brisk bilaterally. Lungs are clear to auscultation and percussion. Cardiac exam reveals the PMI to be normally sized and situated. Rhythm is regular. First and second heart sounds normal. No murmurs, rubs or ga llops. The patient has a pacemaker and skin overlying is dry and intact. Abdominal exam reveals normal bowel sounds, no masses, no organomegaly and no aortic enlargement. Extremities are nonedematous and both femoral and pedal pulses are normal. Skin examination shows areas of superficial skin laceration over the knees bilaterally and he also has similar areas on his feet bilaterally mainly on his first and the second toe. Areas of stage I laceration was also seen in the coccygeal area which is not deep and the area is very erythematous and noninfected and this is a fresh skin wounds. Neurologically, the patient is awake and alert and there is no focal neurological deficits. He is moving all 4 extremities without any limitation. Pupils are equal and reactive to light. No facial asymmetry. He is OA x3. There is an evidence of anisocoria probably a chronic finding. - Labs CBC & Chem 7: 04/23/19 04:32 04/23/19 04:32 Labs: Abnormal Lab Results - Last 24 Hours (Table) 04/22/19 04/22/19 04/22/19 Range/Units 17:01 17:01 17:01 WBC (3.8-10.6) k/uL Hct (39.0-53.0) % Plt Count (150-450) k/uL PT (9.0-12.0) sec INR (<1.2) Sodium (137-145) mmol/L Potassium (3.5-5.1) mmol/L BUN (9-20) mg/dL Creatinine (0.66-1.25) mg/dL Glucose (74-99) mg/dL POC Glucose (mg/dL) 188 H (75-99) mg/dL Calcium (8.4-10.2) mg/dL Creatine Kinase 1500 H* (55-170) U/L Troponin I 0.332 H* (0.000-0.034) ng/mL 04/22/19 04/23/19 04/23/19 Range/Units 20:27 04:32 04:32 WBC 11.4 H (3.8-10.6) k/uL Hct 38.9 L (39.0-53.0) % Plt Count 112 L (150-450) k/uL PT 39.6 H (9.0-12.0) sec INR 4.1 H (<1.2) Sodium (137-145) mmol/L Potassium (3.5-5.1) mmol/L BUN (9-20) mg/dL Creatinine (0.66-1.25) mg/dL Glucose (74-99) mg/dL POC Glucose (mg/dL) 257 H (75-99) mg/dL Calcium (8.4-10.2) mg/dL Creatine Kinase (55-170) U/L Troponin I (0.000-0.034) ng/mL 04/23/19 04/23/19 04/23/19 Range/Units 04:32 06:56 12:01 WBC (3.8-10.6) k/uL Hct (39.0-53.0) % Plt Count (150-450) k/uL PT (9.0-12.0) sec INR (<1.2) Sodium 136 L (137-145) mmol/L Potassium 3.0 L (3.5-5.1) mmol/L BUN 70 H (9-20) mg/dL Creatinine 1.92 H (0.66-1.25) mg/dL Glucose 186 H (74-99) mg/dL POC Glucose (mg/dL) 212 H 295 H (75-99) mg/dL Calcium 8.3 L (8.4-10.2) mg/dL Creatine Kinase (55-170) U/L Troponin I (0.000-0.034) ng/mL Microbiology - Last 24 Hours (Table) 04/21/19 22:35 Blood Culture - Preliminary Blood No Growth after 24 hours Assessment and Plan Plan: 1 altered mental status, recovered. The patient is fully awake and alert and his neurologic exam is within normal. He is awake and alert 3 this morning. Upon further questioning, he states that he had a fall and he was unable to get up and this is all he developed skin lacerations and lower extremities and he got stuck there for almost 2 hours and ultimately he became progressively more confused. His CAT scan of the brain is negative. No focal neurological deficit. The patient has anisocoria it probably is a chronic finding as the patient does not have any new onset neurologically for now. 2 acute lactic acidosis, improved 3 acute dehydration, improved with fluid resuscitation 4 acute kidney injury on top of chronic kidney disease. The patient has stage III kidney disease with a baseline creatinine of 1.8. Renal function is improving and creatinine is down to 1.9 and the patient is producing adequate am ount of urine output. 5 BPH 6 chronic atrial fibrillation currently his cardiac rhythm is ventricular paced and the patient has a pacemaker in place for an underlying third-degree AV block. He is on anticoagulation with an INR of 4.1 for today 7 skin laceration lower extremities bilaterally 8 diabetes mellitus type 2 9 peripheral vascular disease 10 osteoarthritis 11 obstructive sleep apnea does not use any form of CPAP therapy 12 mild rhabdomyolysis 13 troponin leak Plan Continue IV fluids at the rate of 75 mL an hour. The renal function continues to improve. We'll monitor the CPK. We'll monitor the renal function. We'll monitor the electrolytes. Echo of the heart was noted. Neurologically the patient is stable. No focal neurological deficit. No confusion. Neurologic and cardiology evaluations have been done. The patient is tolerating diet. Hold anticoagulation for today. Hold losartan. Hold hydrochlorothiazide for the patient's renal function normalizes. Avoid nephrotoxic agents. Monitor CPK. We'll continue to follow. The patient can be transferred to a medical floor.
[2019-04-23 17:14] LABS: Glucose,Whole Blood 245 mg/dL (75-99)
[2019-04-23] MEDS ORDERED: WARFARIN 0.5 MG TAB PO ONE (18:00)
[2019-04-23 20:58] LABS: Glucose,Whole Blood 169 mg/dL (75-99)
[2019-04-23] MEDS ORDERED: INSULIN DETEMIR (LEVEMIR) 100 UNIT/ML SYR SQ SCH (21:00)
[2019-04-24] MEDS: ACETAMINOPHEN TAB 500 MG TAB PO PRN (03:44)
[2019-04-24 06:02] LABS: HCT 37.5 % (39.0-53.0); HGB 12.5 gm/dL (13.0-17.5); MCH 30.1 pg (25.0-35.0); MCHC 33.4 g/dL (31.0-37.0); MCV 90.3 fL (80.0-100.0); Mean Platelet Volume 7.2; Platelet Count 114 k/uL (150-450); RBC 4.15 m/uL (4.30-5.90); RDW 13.6 % (11.5-15.5); WBC 8.9 k/uL (3.8-10.6)
[2019-04-24 06:07] LABS: INR 3.9 (<1.2); Prothrombin Time 37.7 sec (9.0-12.0)
[2019-04-24 06:16] LABS: Calcium 8.4 mg/dL (8.4-10.2); Potassium 3.2 mmol/L (3.5-5.1)
[2019-04-24] MEDS: POTASSIUM CHLORIDE ER 20 MEQ TAB.ER PO SCH ×2 (06:51→08:27)
[2019-04-24] MEDS: INSULIN ASPART (NovoLOG) 100 UNIT/ML VIAL SQ SCH ×2 (06:52→12:44)
[2019-04-24 07:01] LABS: Glucose,Whole Blood 131 mg/dL (75-99)
[2019-04-24] MEDS: ATORVASTATIN 40 MG TAB PO SCH (08:27)
[2019-04-24] MEDS: ASPIRIN 81 MG PO SCH (08:27)
[2019-04-24] MEDS: METOPROLOL TARTRATE 25 MG TAB PO SCH (08:28)
[2019-04-24] MEDS: MULTIVITAMINS, THERA 1 EACH TAB PO SCH (08:30)
--- NOTE | 2019-04-24 11:03 | P.DS ---
Providers Date of admission: 04/21/19 22:47 Expected date of discharge: 04/24/19 Attending physician: Rosi Busby MD Consults: 04/21/19 22:46 Consult Physician Routine Consulting Provider: Hai Cesar Consult Reason/Comments: icu Do you want consulting provider notified?: Yes 04/22/19 10:10 Consult Physician Routine Consulting Provider: Kiara Luong Consult Reason/Comments: previous confusion, unequal pupils. Do you want consulting provider notified?: Yes Primary care physician: Rylan Ferrera Hospital Course: Discharge Diagnosis: Acute kidney injury and chronic kidney disease stage III with baseline creatinine 1.8 Type II IA Leukocytosis, suspect demargination from stress-induced Diabetes mellitus type 2 with hyperglycemia Thrombocytopenia, reactive Atrial fibrillation, sick sinus syndrome, status post pacemaker Hypertension Dyslipidemia Generalized weakness Lactic acidosis, resolved Hypothermia secondary to being outside for a prolonged period of time Hospital Course: Patient is an 84-year-old male past medical history of atrial fibrillation (on Coumadin), dual-chamber pacemaker (history of third-degree AV block), peripheral vascular disease, type 2 diabetes mellitus, hypertension, and dyslipidemia who is brought into the emergency department secondary to hypothermia. In the emergency department he underwent an extensive evaluation. His rectal temperature was 97.3 with the remainder of his vital signs normal. Laboratory analysis showed an elevated lactic acid 14.5, troponin 0.140, c reatine kinase of 469, BUN 94 (baseline 40) creatinine 3.71 (baseline 1.8), and white blood cell count of 26.4. Urinalysis consistent with dehydration but no white blood cells. Patient underwent an extensive radiologic evaluation. CT head, pelvic x-ray, elbow x-ray, chest x-ray, and bilateral knee x-rays all were negative for any acute process. He was admitted to the ICU and was kept on a bear hugger for rewarming. The morning after admission his white blood cell count was improved to 17.7, creatinine improved to 3, lactic acidosis resolved, creatine kinase was increasing, and troponin was up trending. He is given a dose of Rocephin 1 g for empiric Antibiotic coverage. He was seen by critical care who recommended continuing IV fluids, stopping Rocephin, and applying Silvadene to lower extremity wounds. He was seen by neurology and his mental function was at baseline. Echocardiogram was obtained which showed an ejection fraction of 55-60%, severely dilated left atrium, and mild valvular disease. He was seen by cardiology who felt that his troponin elevation secondary to renal insufficiency. He continued to improve and renal function improved with hydration. He was determined stable to go to rehab at [facility].. He has been off his losartan, lasix and HCTZ here. His coumadin has been held due to elevated INR. He will have a repeat INR in the morning to determine when to restart coumadin. He will have repeat BMP in 3-5 days to determine when to restart lasix and HCTZ. Losartan restarted today. Patient seen and examined at bedside. Feeling stiff and sore today. Less so than yesterday. No chest pain or shortness of breath at this time. Vital signs reviewed and stable. General: non toxic, no distress, appears at stated age Derm: warm, dry Head: atraumatic, normocephalic, symmetric Eyes: EOMI, no lid lag, anicteric sclera Mouth: no lip lesion, mucus membranes moist Cardiovascular: S1S2 reg, no murmur, positive posterior tibial pulse bilateral, Lungs: decreased bs bilateral, no rhonchi, no rales , no accessory muscle use Abdominal: soft, nontender to palpation, no guarding, no appreciable organomegaly Ext: no gross muscle atrophy, trace edema, no contractures Neuro: CN II-XI grossly intact, no focal neuro deficits Psych: Alert, oriented, appropriate affect A total of 35 minutes of time were spent preparing this complex discharge summary . Patient Condition at Discharge: Stable Plan - Discharge Summary Discharge Rx Participant: No New Discharge Prescriptions: New SILVER sulfADIAZINE CREAM [Silvadene Cream] 1 applic TOPICAL DAILY applic Acetaminophen Tab [Tylenol] 500 mg PO Q4HR PRN #0 tab PRN Reason: Fever And/ Or Pain Continue Atorvastatin [Lipitor] 40 mg PO DAILY Aspirin [Adult Low Dose Aspirin EC] 81 mg PO DAILY Multivitamins, Thera [Multivitamin (formulary)] 1 tab PO DAILY Metoprolol Tartrate [Lopressor] 12.5 mg PO BID Losartan Potassium 50 mg PO DAILY Changed Insulin NPH Hum/Reg Insulin Hm [NovoLIN 70-30 100 UNIT/ML VIAL] 16 unit SQ AC-BID #0 Discontinued Metoclopramide [Reglan] 10 mg PO DAILY Furosemide [Lasix] 40 mg PO DAILY Hydrochlorothiazide [Hydrodiuril] 25 mg PO DAILY tab Warfarin [Coumadin] 5 mg PO DAILY Discharge Medication List Atorvastatin [Lipitor] 40 mg PO DAILY 04/21/16 [History] Aspirin [Adult Low Dose Aspirin EC] 81 mg PO DAILY 11/15/17 [History] Losartan Potassium 50 mg PO DAILY 04/21/19 [History] Metoprolol Tartrate [Lopressor] 12.5 mg PO BID 04/21/19 [History] Multivitamins, Thera [Multivitamin (formulary)] 1 tab PO DAILY 04/21/19 [History] Acetaminophen Tab [Tylenol] 500 mg PO Q4HR PRN #0 tab 04/24/19 [Rx] Insulin NPH Hum/Reg Insulin Hm [NovoLIN 70-30 100 UNIT/ML VIAL] 16 unit SQ AC- BID #0 04/24/19 [Rx] SILVER sulfADIAZINE CREAM [Silvadene Cream] 1 applic TOPICAL DAILY applic 04/24/19 [Rx] Follow up Appointment(s)/Referral(s): Rylan Ferrera MD [Primary Care Provider] - 1-2 days Activity/Diet/Wound Care/Special Instructions: Son would like to transport Pt at discharge.
[2019-04-24 12:14] LABS: Glucose,Whole Blood 200 mg/dL (75-99)
--- NOTE | 2019-04-24 12:44 | PN ---
PROGRESS NOTE An 84-year-old gentleman who is with history of atrial fibrillation, permanent pacemaker, peripheral vascular disease, and hypertension is admitted to hospital with persistent atrial fibrillation and we are involved in his care because of mildly elevated troponin. On exam today, he is comfortable at rest. Vital signs are stable. Chest exam reveals good air entry bilaterally. Heart exam reveals first and second heart sounds. Systolic murmur at the left lower sternal border. Abdomen is soft. Examination of extremities reveals bilateral 1+ pitting edema. His INR is elevated at 3.9. Hemoglobin is 12.5. His Coumadin is being dosed by pharmacy. ASSESSMENT: 1. Persistent atrial fibrillation. 2. Status post permanent pacemaker. 3. Elevated troponin. 4. Elevated INR. PLAN: No Coumadin today. Arrange followup with Cardiology and Dr. Ferrera who can follow his INR and adjust the Coumadin doses. MMWALTL / RAVENN: [id number] /
[2019-04-24 13:51] VITALS: BP 123/48; RESP 15; TEMP 98
--- NOTE | 2019-04-24 14:40 | P.PN ---
Subjective Progress Note Date: 04/24/19 On 04/24/2019, the patient has no specific complaints. Doing well. No altered mentation. No focal neurological deficits. Awake and alert. Tolerating his diet. No nausea. No vomiting. No abdominal pain. No focal neurological deficits. He is receiving IV fluids. Is tolerating his diet. He is also receiving local wound care to his lower extremity skin laceration and abrasions. No fever. No chills. No other significant events over the past 24 hours. The patient is being arranged to be transferred to [facility]. Objective - Vital Signs Vital signs: Vital Signs Temp 98 F 04/24/19 12:00 Pulse 70 04/24/19 12:00 Resp 15 04/24/19 12:00 BP 123/48 04/24/19 12:00 Pulse Ox 96 04/24/19 12:00 Intake & Output 04/23/19 04/24/19 04/24/19 18:59 06:59 18:59 Intake Total 1455 540 Output Total 480 200 Balance 975 340 Weight 86.8 kg Intake: IV 375 ns 375 Intake, IV Titration 600 300 Amount Sodium Chloride 0.9% 1, 600 300 000 ml @ 75 mls/hr IV . [id number] ON LICENSE OF [facility] Rx#:[id number] Oral 480 240 Output: Urine 480 200 Other: Voiding Method Toilet Toilet # Voids 1 1 1 # Bowel Movements 1 1 - Exam The patient appeared well nourished and normally developed. Vital signs as d ocumented. Head exam is unremarkable. No scleral icterus or corneal arcus noted. Neck is without jugular venous distension, thyromegaly, or carotid bruits. Carotid upstrokes are brisk bilaterally. Lungs are clear to auscultation and percussion. Cardiac exam reveals the PMI to be normally sized and situated. Rhythm is regular. First and second heart sounds normal. No murmurs, rubs or gallops. The patient has a pacemaker and skin overlying is dry and intact. Abdominal exam reveals normal bowel sounds, no masses, no organomegaly and no aortic enlargement. Extremities are nonedematous and both femoral and pedal pulses are normal. Skin examination shows areas of superficial skin laceration over the knees bilaterally and he also has similar areas on his feet bilaterally mainly on his first and the second toe. Areas of stage I laceration was also seen in the coccygeal area which is not deep and the area is very erythematous and noninfected and this is a fresh skin wounds. Neurologically, the patient is awake and alert and there is no focal neurological deficits. He is moving all 4 extremities without any limitation. Pupils are equal and reactive to light. No facial asymmetry. He is OA x3. There is an evidence of anisocoria probably a chronic finding. - Labs CBC & Chem 7: 04/24/19 05:04 04/24/19 05:04 Labs: Abnormal Lab Results - Last 24 Hours (Table) 04/23/19 04/23/19 04/24/19 Range/Units 17:03 20:46 05:04 RBC (4.30-5.90) m/uL Hgb (13.0-17.5) gm/dL Hct (39.0-53.0) % Plt Count (150-450) k/uL PT 37.7 H (9.0-12.0) sec INR 3.9 H (<1.2) Potassium (3.5-5.1) mmol/L Carbon Dioxide (22-30) mmol/L BUN (9-20) mg/dL Creatinine (0.66-1.25) mg/dL Glucose (74-99) mg/dL POC Glucose (mg/dL) 245 H 169 H (75-99) mg/dL 04/24/19 04/24/19 04/24/19 Range/Units 05:04 05:04 06:49 RBC 4.15 L (4.30-5.90) m/uL Hgb 12.5 L (13.0-17.5) gm/dL Hct 37.5 L (39.0-53.0) % Plt Count 114 L (150-450) k/uL PT (9.0-12.0) sec INR (<1.2) Potassium 3.2 L (3.5-5.1) mmol/L Carbon Dioxide 33 H (22-30) mmol/L BUN 49 H (9-20) mg/dL Creatinine 1.65 H (0.66-1.25) mg/dL Glucose 151 H (74-99) mg/dL POC Glucose (mg/dL) 131 H (75-99) mg/dL 04/24/19 Range/Units 12:02 RBC (4.30-5.90) m/uL Hgb (13.0-17.5) gm/dL Hct (39.0-53.0) % Plt Count (150-450) k/uL PT (9.0-12.0) sec INR (<1.2) Potassium (3.5-5.1) mmol/L Carbon Dioxide (22-30) mmol/L BUN (9-20) mg/dL Creatinine (0.66-1.25) mg/dL Glucose (74-99) mg/dL POC Glucose (mg/dL) 200 H (75-99) mg/dL Microbiology - Last 24 Hours (Table) 04/21/19 22:35 Blood Culture - Preliminary Blood No Growth after 48 hours Assessment and Plan Plan: 1 altered mental status, recovered. The patient is fully awake and alert and his neurologic exam is within normal. He is awake and alert 3 this morning. Upon further questioning, he states that he had a fall and he was unable to get up and this is all he developed skin lacerations and lower extremities and he got stuck there for almost 2 hours and ultimately he became progressively more confused. His CAT scan of the brain is negative. No focal neurological deficit. The patient has anisocoria it probably is a chronic finding as the patient does not have any new onset neurologically for now. 2 acute lactic acidosis, improved 3 acute dehydration, improved with fluid resuscitation 4 acute kidney injury on top of chronic kidney disease. The acute component improved and the patient's creatinine is down to 1.6. 5 BPH 6 chronic atrial fibrillation currently his cardiac rhythm is ventricular paced and the patient has a pacemaker in place for an underlying third-degree AV block. He is on anticoagulation with an INR of 3.9 7 skin laceration lower extremities bilaterally 8 diabetes mellitus type 2 9 peripheral vascular disease 10 osteoarthritis 11 obstructive sleep apnea does not use any form of CPAP therapy 12 mild rhabdomyolysis, improved 13 troponin leak Plan Patient is stable. Renal function is improved. He is well resuscitated. No altered mentation. The patient can be transferred to [facility] for further rehabilitation.
[2019-04-24] MEDS ORDERED: WARFARIN 0.5 MG TAB PO ONE (18:00)
== END 2019-04-24 13:40 | DRG 922 ==
LOC: EC 20:33 → 2SICU 22:47
PROVIDERS: ADMIT Internal Medicine; ATTEND Internal Medicine
DX: T68.XXXA Hypothermia, initial encounter (principal); N17.0 Acute kidney failure with tubular necrosis; I21.A1 Myocardial infarction type 2; G92 Toxic encephalopathy; M62.82 Rhabdomyolysis; E87.1 Hypo-osmolality and hyponatremia; E87.2 Acidosis; I48.21 Permanent atrial fibrillation; N18.3 Chronic kidney disease, stage 3 (moderate); D69.6 Thrombocytopenia, unspecified; E11.22 Type 2 diabetes mellitus with diabetic chronic kidney disease; E11.51 Type 2 diabetes mellitus with diabetic peripheral angiopathy without gangrene; E11.65 Type 2 diabetes mellitus with hyperglycemia; E78.5 Hyperlipidemia, unspecified; E86.0 Dehydration; F41.9 Anxiety disorder, unspecified; H57.02 Anisocoria; I12.9 Hypertensive chronic kidney disease with stage 1 through stage 4 chronic kidney disease, or unspecified chronic kidney disease; I25.10 Atherosclerotic heart disease of native coronary artery without angina pectoris; I49.5 Sick sinus syndrome; N40.0 Benign prostatic hyperplasia without lower urinary tract symptoms; R79.1 Abnormal coagulation profile; Y93.01 Activity, walking, marching and hiking; Z79.01 Long term (current) use of anticoagulants; Z79.4 Long term (current) use of insulin; Z79.82 Long term (current) use of aspirin; Z79.899 Other long term (current) drug therapy; Z91.83 Wandering in diseases classified elsewhere; Z95.0 Presence of cardiac pacemaker; Z96.641 Presence of right artificial hip joint; Z98.42 Cataract extraction status, left eye; Z98.41 Cataract extraction status, right eye; I83.90 Asymptomatic varicose veins of unspecified lower extremity; Z89.421 Acquired absence of other right toe(s); Z66 Do not resuscitate; S81.819A Laceration without foreign body, unspecified lower leg, initial encounter; G47.33 Obstructive sleep apnea (adult) (pediatric); Z99.89 Dependence on other enabling machines and devices
CPT/HCPCS: 36415; 70450; 71045; 72125; 72170; 80048; 80053; 80306; 80320; 81001; 82150; 82550; 82553; 83605; 83690; 84484; 85025; 85027; 85610; 85730; 86850; 86900; 86901; 87040; 93005; 93306; 96361; 96365; 96375; 99291

== ENCOUNTER 2020-12-12 07:55 | Emergency (ER) | payer MEDICARE ==
[2020-12-12 07:59] VITALS: PULSE 60; RESP 18
--- NOTE | 2020-12-12 08:35 | ED ---
General Adult HPI - General Chief complaint: Recheck/Abnormal Lab/Rx Stated complaint: Rt Knee Injury Time Seen by Provider: 12/12/20 07:57 Source: patient Mode of arrival: wheelchair Limitations: no limitations - History of Present Illness Initial comments: 85-year-old male presents with right lower extremity injury 2 days. Patient states he he tripped and fell at his home and fell on carpet. Patient states he has slight discomfort in his knee but more that the bleeding was not controlled. Patient was bandaged up 2 days ago and never remove the bandage. Patient believes his tetanus is up-to-date his family member states is within 5 years. Patient is a diabetic does have some neuropathy. Patient noticed today when he took his sock off that his toe was bleeding. Patient able to ambulate no head or neck injury. No previous Knee fracture. -: days(s) (2) Location: right, lower extremity Improves with: immobilization Worsens with: movement Treatments Prior to Arrival: none - Related Data Home Medications Medication Instructions Recorded Confirmed Atorvastatin [Lipitor] 40 mg PO DAILY 04/21/16 04/21/19 Aspirin [Adult Low Dose Aspirin EC] 81 mg PO DAILY 11/15/17 04/21/19 Losartan Potassium 50 mg PO DAILY 04/21/19 04/21/19 Metoprolol Tartrate [Lopressor] 12.5 mg PO BID 04/21/19 04/21/19 Multivitamins, Thera [Multivitamin 1 tab PO DAILY 04/21/19 04/21/19 (formulary)] Previous Rx's Medication Instructions Recorded Acetaminophen Tab [Tylenol] 500 mg PO Q4HR PRN #0 tab 04/24/19 Insulin NPH Hum/Reg Insulin Hm 16 unit SQ AC-BID #0 04/24/19 [NovoLIN 70-30 100 UNIT/ML VIAL] SILVER sulfADIAZINE CREAM 1 applic TOPICAL DAILY applic 04/24/19 [Silvadene Cream] Cephalexin [Keflex] 500 mg PO Q8HR 1 Days #3 cap 12/12/20 Allergies Allergy/AdvReac Type Severity Reaction Status Date / Time No Known Allergies Allergy Verified 12/12/20 07:59 Review of Systems ROS Statement: Those systems with pertinent positive or pertinent negative responses have been documented in the HPI. ROS Other: All systems not noted in ROS Statement are negative. Constitutional: Denies: fever, chills Skin: Reports: other (abrasions/skin tear/laceration to right knee, right toe) Past Medical History Past Medical History: Coronary Artery Disease (CAD), Diabetes Mellitus, Hyperlipidemia, Hypertension, Osteoarthritis (OA), Prostate Disorder, Skin Disorder, Sleep Apnea/CPAP/BIPAP, Vascular Disorder Additional Past Medical History / Comment(s): CAD, diabetes, hyperlipidemia, BPH, peripheral vascular disease, chronic kidney disease stage III, hemorrhoids, varicose veins, osteoarthritis History of Any Multi-Drug Resistant Organisms: None Reported Past Surgical History: Hernia Repair, Joint Replacement, Orthopedic Surgery Additional Past Surgical History / Comment(s): Rt hip replacement, malinda cataract surgery, Screw in L hip (fx). Abdominal Aortoram and Bilat. Lower Ext., stent in left leg. 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 oral surgery Past Anesthesia/Blood Transfusion Reactions: No Reported Reaction Type of Cardiac Device: Permanent Pacemaker Device Placement Date:: 11/26/17 Past Psychological History: Anxiety Smoking Status: Never smoker Past Alcohol Use History: None Reported Past Drug Use History: None Reported - Past Family History Father History Unknown: Yes Family Medical History: Thyroid Disorder Additional Family Medical History / Comment(s): AFTER A GOITER surgery. Mother History Unknown: Yes Additional Family Medical History / Comment(s): IN A MVA Sister(s) Family Medical History: Cancer General Exam Limitations: no limitations General appearance: alert, in no apparent distress Head exam: Present: atraumatic, normocephalic, normal inspection Eye exam: Present: normal appearance, PERRL, EOMI. Absent: scleral icterus, conjunctival injection, periorbital swelling ENT exam: Present: normal exam, mucous membranes moist Neck exam: Present: normal inspection. Absent: tenderness, meningismus, lymphadenopathy Respiratory exam: Present: normal lung sounds bilaterally. Absent: respiratory distress, wheezes, rales, rhonchi, stridor Cardiovascular Exam: Present: regular rate, normal rhythm, normal heart sounds. Absent: systolic murmur, diastolic murmur, rubs, gallop, clicks Right Hip exam: Present: normal inspection. Absent: full ROM, tenderness, swelling Upper Leg exam: Present: normal inspection, full ROM. Absent: tenderness, swelling Knee exam: Present: tenderness, abrasion (Large abrasion to the right knee some skin has been removed more skin tears as well. Patient had large amount of gauze on it that he had not removed in 2 days therefore I saturated with normal saline and gently removed bandage. Patient tolerated it well cleaned with normal saline and Betadine), laceration, ecchymosis. Absent: normal inspection Lower Leg exam: Present: normal inspection, full ROM. Absent: tenderness, swel ling Ankle exam: Present: normal inspection, full ROM. Absent: tenderness, swelling Foot/Toe exam: Present: normal inspection, full ROM, abrasion (right great toe). Absent: nail avulsion Gait: observed and normal Neurological exam: Present: alert, oriented X3, CN II-XII intact Psychiatric exam: Present: normal affect, normal mood Skin exam: Present: warm, dry, normal color. Absent: intact (multiple abrasions to right toe/knee), rash Course Vital Signs 12/12/20 12/12/20 07:56 08:47 Temperature 98.0 F Pulse Rate 60 60 Respiratory 18 18 Rate Blood Pressure 181/60 160/56 O2 Sat by Pulse 98 95 Oximetry Procedures - Procedures Initial comment: 85 was prepped and draped appropriately normal saline was used to remove adhered bandage. Still active slight bleeding noted to the right knee and below the right great toenail bed. Full range of motion full sensation. Patient tolerated procedure well. Bacitracin dressing applied. Medical Decision Making - Medical Decision Making Patient comfortable in the room patient's wounds were washed extensively with normal saline and Betadine bacitracin and dressing were applied patient tolerated it well we'll start antibiotics IV. Patient will be sent home on oral antibiotics and patient have close follow-up with family care physician for wound care. Patient and family member explained that he needs to change the dressings twice daily and watch for infection symptoms such as increased pain swelling fevers or chills. Discussed INR with patient and family of 4.6. Patient family aware patient will hold his 5 mg of Coumadin dose for the next few days and get rechecked on Sunday. Patient aware bleeding is not improving patient to return. She will follow with Dr. Clemente for INR checks. - Lab Data Result diagrams: 12/12/20 08:40 12/12/20 08:40 Lab Results 12/12/20 12/12/20 12/12/20 Range/Units 08:40 08:40 08:40 WBC 7.0 (3.8-10.6) k/uL RBC 4.37 (4.30-5.90) m/uL Hgb 13.7 (13.0-17.5) gm/dL Hct 39.4 (39.0-53.0) % MCV 90.0 (80.0-100.0) fL MCH 31.3 (25.0-35.0) pg MCHC 34.7 (31.0-37.0) g/dL RDW 13.5 (11.5-15.5) % Plt Count 165 (150-450) k/uL MPV 6.9 Neutrophils % 73 % Lymphocytes % 14 % Monocytes % 8 % Eosinophils % 3 % Basophils % 1 % Neutrophils # 5.1 (1.3-7.7) k/uL Lymphocytes # 1.0 (1.0-4.8) k/uL Monocytes # 0.5 (0-1.0) k/uL Eosinophils # 0.2 (0-0.7) k/uL Basophils # 0.0 (0-0.2) k/uL PT (9.0-12.0) sec INR (<1.2) Sodium 135 L (137-145) mmol/L Potassium 4.6 (3.5-5.1) mmol/L Chloride 104 (98-107) mmol/L Carbon Dioxide 22 (22-30) mmol/L Anion Gap 9 mmol/L BUN 47 H (9-20) mg/dL Creatinine 1.45 H (0.66-1.25) mg/dL Est GFR (CKD-EPI)AfAm 50 (>60 ml/min/1.73 sqM) Est GFR (CKD-EPI)NonAf 43 (>60 ml/min/1.73 sqM) Glucose 242 H (74-99) mg/dL Plasma Lactic Acid Gilbert 1.6 (0.7-2.0) mmol/L Calcium 9.0 (8.4-10.2) mg/dL Total Bilirubin 1.1 (0.2-1.3) mg/dL AST 32 (17-59) U/L ALT 22 (4-49) U/L Alkaline Phosphatase 153 H (38-126) U/L Total Protein 6.3 (6.3-8.2) g/dL Albumin 3.8 (3.5-5.0) g/dL 12/12/20 Range/Units 08:40 WBC (3.8-10.6) k/uL RBC (4.30-5.90) m/uL Hgb (13.0-17.5) gm/dL Hct (39.0-53.0) % MCV (80.0-100.0) fL MCH (25.0-35.0) pg MCHC (31.0-37.0) g/dL RDW (11.5-15.5) % Plt Count (150-450) k/uL MPV Neutrophils % % Lymphocytes % % Monocytes % % Eosinophils % % Basophils % % Neutrophils # (1.3-7.7) k/uL Lymphocytes # (1.0-4.8) k/uL Monocytes # (0-1.0) k/uL Eosinophils # (0-0.7) k/uL Basophils # (0-0.2) k/uL PT 44.0 H (9.0-12.0) sec INR 4.6 H (<1.2) Sodium (137-145) mmol/L Potassium (3.5-5.1) mmol/L Chloride (98-107) mmol/L Carbon Dioxide (22-30) mmol/L Anion Gap mmol/L BUN (9-20) mg/dL Creatinine (0.66-1.25) mg/dL Est GFR (CKD-EPI)AfAm (>60 ml/min/1.73 sqM) Est GFR (CKD-EPI)NonAf (>60 ml/min/1.73 sqM) Glucose (74-99) mg/dL Plasma Lactic Acid Gilbert (0.7-2.0) mmol/L Calcium (8.4-10.2) mg/dL Total Bilirubin (0.2-1.3) mg/dL AST (17-59) U/L ALT (4-49) U/L Alkaline Phosphatase (38-126) U/L Total Protein (6.3-8.2) g/dL Albumin (3.5-5.0) g/dL Disposition Clinical Impression: Abrasion, Bleeding from wound, Elevated INR Disposition: HOME SELF-CARE Condition: Fair Instructions (If sedation given, give patient instructions): Elevated INR (ED) Additional Instructions: Hold Coumadin for 2 days and have INR rechecked by clerk general for dosing instructions. Prescriptions: Cephalexin [Keflex] 500 mg PO Q8HR 1 Days #3 cap Is patient prescribed a controlled substance at d/c from ED?: No Referrals: Milton Sinclair MD [Primary Care Provider] - 1-2 days
[2020-12-12 08:49] LABS: Basophils % (A) 1 %; Eosinophils # (A) 0.2 k/uL (0-0.7); Eosinophils % (A) 3 %; HCT 39.4 % (39.0-53.0); HGB 13.7 gm/dL (13.0-17.5); Lymphocytes % (A) 14 %; MCH 31.3 pg (25.0-35.0); MCHC 34.7 g/dL (31.0-37.0); Mean Platelet Volume 6.9; Monocytes # (A) 0.5 k/uL (0-1.0); Monocytes % (A) 8 %; Neutrophils # (A) 5.1 k/uL (1.3-7.7); Neutrophils % (A) 73 %; Platelet Count 165 k/uL (150-450); RBC 4.37 m/uL (4.30-5.90); RDW 13.5 % (11.5-15.5)
[2020-12-12] MEDS ORDERED: BACITRACIN OINT 1 EACH PACKET TOPICAL ONE (08:51)
[2020-12-12 08:54] LABS: INR 4.6 (<1.2)
--- NOTE | 2020-12-12 09:02 | XR ---
EXAMINATION TYPE: XR knee 4V RT DATE OF EXAM: 12/12/2020 CLINICAL HISTORY: pain TECHNIQUE: Three views of the right knee are obtained. Patellar sunrise view obtained as well. COMPARISON: None. FINDINGS: There is no acute fracture/dislocation. The tri-compartment joint spaces appear within no rmal limits. Distal superficial femoral/popliteal artery stent. IMPRESSION: There is no acute fracture or dislocation.ICD 10 NO FRACTURE, INITIAL EVALUATION
[2020-12-12 09:09] LABS: Albumin 3.8 g/dL (3.5-5.0); Potassium 4.6 mmol/L (3.5-5.1); Total Bilirubin 1.1 mg/dL (0.2-1.3); Total Protein 6.3 g/dL (6.3-8.2)
[2020-12-12 11:25] VITALS: BP 147/66; TEMP 98.2
== END 2020-12-12 11:38 | disposition home or self-care (01) ==
LOC: EC 07:55
DX: S80.211A Abrasion, right knee, initial encounter (principal); S90.411A Abrasion, right great toe, initial encounter; R79.1 Abnormal coagulation profile; I12.9 Hypertensive chronic kidney disease with stage 1 through stage 4 chronic kidney disease, or unspecified chronic kidney disease; E11.22 Type 2 diabetes mellitus with diabetic chronic kidney disease; N18.30 Chronic kidney disease, stage 3 unspecified; I25.10 Atherosclerotic heart disease of native coronary artery without angina pectoris; M19.90 Unspecified osteoarthritis, unspecified site; E78.5 Hyperlipidemia, unspecified; Z79.899 Other long term (current) drug therapy; Z79.82 Long term (current) use of aspirin; W01.0XXA Fall on same level from slipping, tripping and stumbling without subsequent striking against object, initial encounter; Y92.009 Unspecified place in unspecified non-institutional (private) residence as the place of occurrence of the external cause
CPT/HCPCS: 99283; 96365; 36415; 80053; 83605; 85025; 85610; 87040; 73564; J0696